=== PATIENT | male | born 1955 | race Caucasian/White ===

== ENCOUNTER 2018-09-17 01:54 | Emergency (ER) | payer MEDICARE, MEDICAID, SELFPAY ==
--- NOTE | 2018-09-17 01:57 | W.ED.GENAD ---
Discharge Plan Disposition Patient Disposition: AGAINST MEDICAL ADVICE Condition: Stable Discharge Details Chief Complaint: Nk/Back Pain Clinical Impression: Back pain Primary Care Provider: None,None ED Provider: Caesar Otoole Home Meds and New Rx's Prescriptions: No Action lorazepam [Ativan] 1 mg Tablet 1 mg PO TID RF: 0 ibuprofen 600 mg Tablet 600 mg PO DAILY RF: 0 Medical Decision Making 63 yo male who states he has a hx of anxiety and lower back pain in the past comes in with 1 hour of lower back pain. He states he twisted his back reaching and then fell to the ground. Denies hitting his head or loc. Has no headache, neck pain, sob, chest pain or abdominal pain. He localizes the pain to the lower back. Denies having pain yesterday and denies fevers and denies ivdu. He localizes the pain throughout the lumbar region. Has no abdominal tenderness. NO saddle anesthesia and no weakness of the legs. Given no ivdu or fevers or neuro symptoms doubt sea and no findings or urinary retention to suggest cauda equina. Will obtain renal colic ct given acute onset of symptoms though suspect muscle spasm vs back strain The patient was given oral ibuprofen and flexeril and almost immediately requested something stronger so was given IM valium. He then about 2 minutes later requested something stronger. Pt was advised that the other meds haven't had time to take effect and he became very angry and refused to have any imaging done and if that he didn't get any pain meds he was going to leave. I advised I was not comfortable giving him more pain medications given the others hadn't had time to take effect. He then yelled and starting to swear explitives about not getting pain meds. He declined to have any imaging at this time and decided to leave the emergency department without any workup. He was told that we haven't had the opportunity to exclude life threatening pathology that could kill him or disable him and he still did not want to stay, and has capacity to make his own decisions. He refuse to sign ama form. He was told he could always return if he changes his mind. He refused to stay for any discharge paperwork Differential Diagnosis back strain, sciatica, muscle spasm HPI General Mode of arrival: wheelchair. Date/Time Provider Initiated Documentation: 09/17/18 01:57. Limitations to Documentation: no limitations. Information obtained by: patient. History of Present Illness 63 year old M presents to the emergency department with the chief complaint of lower back pain, described as severe, Quality is described as stabbing and aching, and is localized to the back. Patient reports no radiation. Patient started experiencing this hour(s) (1) and it has been constant. No relieving factors improve symptom(s), No exacerbating factors reported . Patient did receive the following treatments prior to arrival, none Related Data Home Medications Medication Instructions Recorded Confirmed ibuprofen 600 mg PO DAILY 09/17/18 09/17/18 lorazepam [Ativan] 1 mg PO TID 09/17/18 09/17/18 Allergies Allergy/AdvReac Type Severity Reaction Status Date / Time No Known Allergies Allergy Unverified 09/17/18 02:03 Review of Systems Review of Systems All systems reviewed & are unremarkable except as noted in HPI and below Constitutional Denies chills and Denies fever(s) Cardiovascular Denies chest pain and Denies dyspnea Respiratory Denies cough and Denies dyspnea Gastrointestinal Denies abdominal pain, Denies nausea and Denies vomiting Integumentary/Breasts Denies rash [facility] Social History Smoking/Tobacco Use Status: Current every day Tobacco Type: cigarettes Alcohol Intake: former Drug use: Never Substance use type: does not use Do you feel safe at home: Yes Do you feel safe in your relationship?: Yes Exam Const General: no acute distress Orientation: alert HENMT Head: normal to inspection Ears: external ears normal General nose exam: external nose normal Mouth: moist mucous membranes Eyes General: appearance normal, both eyes and all related structures Neck Neck: normal visual inspection Resp Effort & Inspection: normal respiratory effort and able to speak in complete sentences Cardio Rate: regular rate Back/Spine/Pelvis Back: no CVA tenderness Skin General skin exam: no rashes or lesions noted Neuro General: alert and oriented x3 Extrem General: normal to inspection Psych Mental Status: mental status grossly normal
[2018-09-17 02:00] VITALS: BP 139/88; PULSE 115; RESP 20; TEMP 37; O2SAT 100
[2018-09-17] MEDS: Cyclobenzaprine 10 MG TAB PO (02:10)
[2018-09-17] MEDS: Ibuprofen 600 MG TAB PO (02:10)
--- NOTE | 2018-09-17 02:13 | ED.GENADUL_ITS ---
Discharge Plan Disposition Patient Disposition: AGAINST MEDICAL ADVICE Condition: Stable Discharge Details Chief Complaint: Nk/Back Pain Clinical Impression: Back pain Primary Care Provider: None,None ED Provider: Caesar Otoole Home Meds and New Rx's Prescriptions: No Action lorazepam [Ativan] 1 mg Tablet 1 mg PO TID RF: 0 ibuprofen 600 mg Tablet 600 mg PO DAILY RF: 0 Medical Decision Making 63 yo male who states he has a hx of anxiety and lower back pain in the past comes in with 1 hour of lower back pain. He states he twisted his back reaching and then fell to the ground. Denies hitting his head or loc. Has no headache, neck pain, sob, chest pain or abdominal pain. He localizes the pain to the lower back. Denies having pain yesterday and denies fevers and denies ivdu. He localizes the pain throughout the lumbar region. Has no abdominal tenderness. NO saddle anesthesia and no weakness of the legs. Given no ivdu or fevers or neuro symptoms doubt sea and no findings or urinary retention to suggest cauda equina. Will obtain renal colic ct given acute onset of symptoms though suspect muscle spasm vs back strain The patient was given oral ibuprofen and flexeril and almost immediately requested something stronger so was given IM valium. He then about 2 minutes later requested something stronger. Pt was advised that the other meds haven't had time to take effect and he became very angry and refused to have any imaging done and if that he didn't get any pain meds he was going to leave. I advised I was not comfortable giving him more pain medications given the others hadn't had time to take effect. He then yelled and starting to swear explitives about not getting pain meds. He declined to have any imaging at this time and decided to leave the emergency department without any workup. He was told that we haven't had the opportunity to exclude life threatening pathology that could kill him or disable him and he still did not want to stay, and has capacity to make his own decisions. He refuse to sign ama form. He was told he could always return if he changes his mind. He refused to stay for any discharge paperwork Differential Diagnosis back strain, sciatica, muscle spasm HPI General Mode of arrival: wheelchair . Date/Time Provider Initiated Documentation: 09/17/18 01:57 . Limitations to Documentation: no limitations . Information obtained by: patient . History of Present Illness 63 year old M presents to the emergency department with the chief complaint of lower back pain, described as severe, Quality is described as stabbing and aching, and is localized to the back. Patient reports no radiation. Patient started experiencing this hour(s) (1) and it has been constant. No relieving factors improve symptom(s), No exacerbating factors reported . Patient did receive the following treatments prior to arrival, none Related Data Home Medications Medication Instructions Recorded Confirmed ibuprofen 600 mg PO DAILY 09/17/18 09/17/18 lorazepam [Ativan] 1 mg PO TID 09/17/18 09/17/18 Allergies Allergy/AdvReac Type Severity Reaction Status Date / Time No Known Allergies Allergy Unverified 09/17/18 02:03 Review of Systems Review of Systems All systems reviewed & are unremarkable except as noted in HPI and below Constitutional Denies chills and Denies fever(s) Cardiovascular Denies chest pain and Denies dyspnea Respiratory Denies cough and Denies dyspnea Gastrointestinal Denies abdominal pain, Denies nausea and Denies vomiting Integumentary/Breasts Denies rash [facility] Social History Smoking/Tobacco Use Status: Current every day Tobacco Type: cigarettes Alcohol Intake: former Drug use: Never Substance use type: does not use Do you feel safe at home: Yes Do you feel safe in your relationship?: Yes Exam Const General: no acute distress Orientation: alert HENMT Head: normal to inspection Ears: external ears normal General nose exam: external nose normal Mouth: moist mucous membranes Eyes General: appearance normal, both eyes and all related structures Neck Neck: normal visual inspection Resp Effort & Inspection: normal respiratory effort and able to speak in complete sentences Cardio Rate: regular rate Back/Spine/Pelvis Back: no CVA tenderness Skin General skin exam: no rashes or lesions noted Neuro General: alert and oriented x3 Extrem General: normal to inspection Psych Mental Status: mental status grossly normal
[2018-09-17] MEDS: diazePAM 10 MG/2 ML SYR 5 MG IM (02:21)
--- NOTE | 2018-09-17 02:27 | NUR.NOTE ---
patient medicated per MD order, shortly after patient was medicated patient stated, want something to stop the pain or I am leaving MD made aware, POC : no additional pain medication. patient received motrin 600mg, 10 mg flexeril and 5 mg valium IM, prior to arrival patient stated, took 2 Tylenol. Patient began yelling at the nurse stating , you think this is some kind of joke RN attempted to re-direct patient to CT for rad studies and patient stated, I am going to [facility] patient was able to get into wheel-chair and refused to sign AMA form stating, I am not signing that fucking form patient left with via wheel-chair. MD was made aware of situation. ursing Note:
== END 2018-09-17 02:35 | disposition left against medical advice (07) ==
PROVIDERS: Emergency Provider Emergency Medicine
DX: M54.5 Low back pain (principal)
CPT/HCPCS: 96372; 99284

== ENCOUNTER 2018-09-18 03:32 | Emergency (ER) | payer MEDICARE, MEDICAID, SELFPAY ==
[2018-09-18 03:33] VITALS: BP 174/97; PULSE 117; RESP 24; TEMP 36.5; O2SAT 97
--- NOTE | 2018-09-18 03:38 | W.ED.GENAD ---
Discharge Plan Disposition Patient Disposition: HOME Condition: Stable Discharge Details Chief Complaint: Nk/Back Pain Clinical Impression: Chronic back pain, Hyperthyroidism Primary Care Provider: None,None ED Provider: Sajan Odom Home Meds and New Rx's Prescriptions: Continued lorazepam [Ativan] 1 mg Tablet 1 mg PO TID RF: 0 ibuprofen 600 mg Tablet 600 mg PO DAILY RF: 0 methadone 10 mg Tablet 20 mg PO DAILY RF: 0 Discharge Instructions Additional Instructions: You were reevaluated by Dr. Pak of psychiatry. Please return at any time should your mood change or you feel you are a danger to yourself or have thoughts of harming others. You need to follow-up with the [facility] in [place] this week for recheck, we will ask our care management team to assist in making you this appointment. They will need to recheck your thyroid function. Continue your regular medications. Medical Decision Making <Christiano Skelton MD - Last Filed: 09/18/18 20:05> Through all of this best I can ascertain is that he seems to have an acute exacerbation of chronic pain as well as severe agitation and psychiatric disturbance. He repeatedly request Valium and Percocet. He repeatedly requested safety instruction police officer to be present. He repeatedly requests that we contact his girlfriend as well as his workers at [facility]. I do feel he needs a mental health evaluation and I have told him this. He is actually agreeable to this. I have told him that I will give him IM Valium but that I will not give him any narcotics. I offered Toradol which he declined. He has agreed to allow me to draw labs and obtain a CT scan. I have had a CPSO assigned to the patient. We have not attempted to remove his clothes or belonging as of yet due to the agitation. He willing submitted to lab draw and IM Valium. Mental health has been contacted. We will try to get records from the [facility]. We will contact [facility] when they open. 06:00 -patient does seem a little more lucid after 10 mg of IM Valium. He still has not stopped talking and is still continuing to ramble on and off. Records were obtained from the [facility]. 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 He has chronic back and neck pain. He has a prior history of opiate abuse. He has been in remission for some time. He also has hepatitis C. I was able to speak to nurse DOUGIE who states he is a client there. He is on methadone 20 mg a day. He is typically very even keeled and well behaved. I was also able to speak to his girlfriend, Grisel. She reports that he has not slept in a couple of days. He is completely changed in behavior. He is nonstop talking and at times makes no sense to her. She describes him as manic. He has no history of bipolar. He has been perseverating on dying and cancer. In regards to laboratory studies he does have evidence of some hyperthyroidism. His TSH is low and his T4 a little high. I have added free T4 and free T3. I do not necessarily think this is causing his behavioral change. He does have eye complaints and seems to have some injected conjunctiva but he does not have chemosis nor does he have exophthalmos. Extraocular muscles are intact. Pupils equal round and reactive. At this time urine drug screen and urinalysis are pending as his results of his CT scan. 8:00 -patient has been seen by mental health. They are in agreement that patient appears manic. He is going to need EE and I have done the paperwork. As this is new onset in nature I am going to get a CT head to rule out any mass but he appears to be nonfocal neurologically and I do not think that his cause. He is presenting more as a manic episode as opposed to psychosis. We have convinced him to change into paper clothes. Care management notified and care plan will be determined. Mental health will continue working on placement. Medical Records Medical records reviewed: Yes I reviewed the patient's medical records. Lab Data Lab results reviewed: Yes I reviewed the patient's lab results. <Sajan Odom MD - Last Filed: 09/18/18 19:16> Received signout from Dr. Skelton. Please see his note regarding the patient's initial presentation, 3-day history of increasingly psychotic/manic symptoms as well as medical workup and decision for EE. Note of discrete hyper thyroidism which is unlikely be causing this presentation. CT scan of the head negative for acute findings. Patient beginning to de-escalate with Valium. Will add antipsychotic. Care management team huddle was performed and patient has a one-to-one observer. Patient's girlfriend brought his home methadone dose is in packaging and he was given his daily dose. Continues to be observed in the emergency department. He was able to sleep, and upon awakening he was somewhat improved with more linear thoughts and no further agitation. He was reevaluated by Dr. Kelley of psychiatry and felt not to meet the threshold for involuntary treatment, therefore his emergency evaluation was terminated. He is eating and drinking and able to care for himself. He is not a danger to himself or others he therefore will be discharged from the emergency department improved. He will follow-up with the [facility] as is his request. Lab Data Lab results reviewed: Yes I reviewed the patient's lab results. Laboratory Results - last 24 hr 09/18/18 09/18/18 09/18/18 04:45 04:45 04:45 WBC 12.36 H RBC 4.43 L Hgb 13.7 Hct 40.3 MCV 91.0 MCH 30.9 MCHC 34.0 RDW 13.3 Plt Count 237 MPV 10.0 Immature Gran % 0.0 Neutrophils % 79.0 Band Neutrophils % 0.0 Lymphocytes % 5.0 Atypical Lymphs % 0 Monocytes % 16.0 Eosinophils % 0.0 Basophils % 0.0 Absolute Neutrophils 9.76 H Absolute Lymphocytes 0.62 L Absolute Monocytes 1.98 H Absolute Eosinophils 0.00 Absolute Basophils 0.00 Differential Comment Manual differential RBC Morphology Normal Sodium 142 Potassium 4.0 Chloride 103 Carbon Dioxide 23.7 Anion Gap 15.3 H BUN 30 H Creatinine 1.01 Estimated GFR/1.73 m2 >= 60.00 Glucose 160 H Calcium 8.9 Total Bilirubin 1.1 H AST 281 H ALT 87 H Alkaline Phosphatase 85 Total Protein 7.8 Albumin 4.5 TSH 0.22 L Free T4 Thyroxine (T4) Urine Color Urine Clarity Urine pH Ur Specific Harrison Urine Protein Urine Ketones Urine Blood Urine Nitrite Urine Bilirubin Urine Urobilinogen Ur Leukocyte Esterase Urine RBC Urine WBC Ur Epithelial Cells Urine Crystals Urine Bacteria Urine Casts Urine Mucus Ur Culture Indicated? Urine Glucose Salicylates < 2.8 L Urine Opiates Screen Urine Methadone Screen Acetaminophen < 2 L Ur Barbiturates Screen Ur Tricyclics Screen Ur Amphetamines Screen U Benzodiazepines Scrn Urine Cocaine Screen Ur THC Screen Ethyl Alcohol < 3.0 09/18/18 09/18/18 09/18/18 04:45 04:45 08:28 WBC RBC Hgb Hct MCV MCH MCHC RDW Plt Count MPV Immature Gran % Neutrophils % Band Neutrophils % Lymphocytes % Atypical Lymphs % Monocytes % Eosinophils % Basophils % Absolute Neutrophils Absolute Lymphocytes Absolute Monocytes Absolute Eosinophils Absolute Basophils Differential Comment RBC Morphology Sodium Potassium Chloride Carbon Dioxide Anion Gap BUN Creatinine Estimated GFR/1.73 m2 Glucose Calcium Total Bilirubin AST ALT Alkaline Phosphatase Total Protein Albumin TSH Free T4 1.61 H Thyroxine (T4) 16.8 H Urine Color Brown Urine Clarity Clear Urine pH 5.5 Ur Specific Harrison >= 1.030 H Urine Protein 100 H Urine Ketones 40 H Urine Blood Large H Urine Nitrite Negative Urine Bilirubin Small H Urine Urobilinogen 0.2 Ur Leukocyte Esterase Negative Urine RBC 3-5 H Urine WBC 5-10 Ur Epithelial Cells Rare Urine Crystals Negative Urine Bacteria Few Urine Casts 20-30 wbc Urine Mucus Moderate Ur Culture Indicated? Yes Urine Glucose Negative Salicylates Urine Opiates Screen Urine Methadone Screen Acetaminophen Ur Barbiturates Screen Ur Tricyclics Screen Ur Amphetamines Screen U Benzodiazepines Scrn Urine Cocaine Screen Ur THC Screen Ethyl Alcohol 09/18/18 08:28 WBC RBC Hgb Hct MCV MCH MCHC RDW Plt Count MPV Immature Gran % Neutrophils % Band Neutrophils % Lymphocytes % Atypical Lymphs % Monocytes % Eosinophils % Basophils % Absolute Neutrophils Absolute Lymphocytes Absolute Monocytes Absolute Eosinophils Absolute Basophils Differential Comment RBC Morphology Sodium Potassium Chloride Carbon Dioxide Anion Gap BUN Creatinine Estimated GFR/1.73 m2 Glucose Calcium Total Bilirubin AST ALT Alkaline Phosphatase Total Protein Albumin TSH Free T4 Thyroxine (T4) Urine Color Urine Clarity Urine pH Ur Specific Harrison Urine Protein Urine Ketones Urine Blood Urine Nitrite Urine Bilirubin Urine Urobilinogen Ur Leukocyte Esterase Urine RBC Urine WBC Ur Epithelial Cells Urine Crystals Urine Bacteria Urine Casts Urine Mucus Ur Culture Indicated? Urine Glucose Salicylates Urine Opiates Screen Positive Urine Methadone Screen Positive Acetaminophen Ur Barbiturates Screen Negative Ur Tricyclics Screen Negative Ur Amphetamines Screen Negative U Benzodiazepines Scrn Positive Urine Cocaine Screen Negative Ur THC Screen Positive Ethyl Alcohol HPI <Christiano Skelton MD - Last Filed: 09/18/18 20:05> General Mode of arrival: EMS. Date/Time Provider Initiated Documentation: 09/18/18 03:36. Limitations to Documentation: no limitations. Information obtained by: patient and old records reviewed. HPI Narrative: Patient presents to ED by ambulance with complaint of back pain. He arrives angry and agitated. He is rambling on about various things including the back pain which as best I can tell is an exacerbation of chronic pain. However, due to his degree of agitation this makes this very difficult to get a history from him. He does admit to having a history of PTSD. He is a of [place]. He periodically states that he is dying. He also states that he has cancer but cannot tell me where. States he does not have primary care than [facility] Also is apparently a [facility] client. On numerous occasion he requests that a safety instruction police officer be present. He also reports that he is best friends with Ashley Shaw. Constantly makes threats of lawsuits. He is apparently very angry with the fact that he was accused of drug-seeking last night. He was here last night for back pain and left AMA. I have reviewed that note. He was given ibuprofen, Flexeril, Valium but wanted Percocet which he was not given. He did not have CT scan which had been ordered. He left AMA. Related Data Home Medications Medication Instructions Recorded Confirmed ibuprofen 600 mg PO DAILY 09/17/18 09/18/18 lorazepam [Ativan] 1 mg PO TID 09/17/18 09/18/18 methadone 20 mg PO DAILY 09/18/18 09/18/18 Allergies Allergy/AdvReac Type Severity Reaction Status Date / Time No Known Allergies Allergy Unverified 09/18/18 03:40 General MONISHA: 4 Review of Systems <Christiano Skelton MD - Last Filed: 09/18/18 20:05> Review of Systems Unobtainable due to mental condition [facility] <Christiano Skelton MD - Last Filed: 09/18/18 20:05> Medical History Back fracture (Chronic) Back pain (Chronic) Hepatitis C (Chronic) PTSD (post-traumatic stress disorder) (Chronic) Social History Smoking/Tobacco Use Status: Current every day Tobacco Type: cigarettes Alcohol Intake: former Drug use: Never Substance use type: does not use Do you feel safe at home: Yes Do you feel safe in your relationship?: Yes Exam <Christiano Skelton MD - Last Filed: 09/18/18 20:05> Narrative Exam Narrative: 1. Const: WDWN male who is agitated, loud, swearing. 2. Eyes: No conjunctival injection or scleral icterus. 3. ENT: NC/AT. Mucous membranes moist. 4. CVS: RRR without murmurs or gallops. Good radial pulses. 5. RESP: Unlabored respiratory effort. Clear to auscultation bilaterally. No wheezes, rales or rhonchi. 6. GI: Soft, NT/ND, no hepatosplenomegaly. No guarding or rebound. 7. MSK: No C/C/E present. No deformity or tenderness noted in the extremities. Able to roll over in bed easily. No spine or back tenderness. Ambulates with limp. 8. Skin: Warm and dry. No rashes. 9. Neuro: A&O x3. second floor operator II-XII grossly intact. Sensation grossly intact, no focal neurologic deficits appears to have 5/5 strength. 10. Psych: Agitated and loud. Angry. Rambling in speech with apparent flight of ideas. Cannot stay focused on one subject. At times seems delusional but am not able to tell what is real versus not real as I have never seen this patient before. He is definitely very pressured. Sign Out <Christiano Skelton MD - Last Filed: 09/18/18 20:05> Sign Out Data: Sign Out Comment: Patient has been placed on ED for manic episode. CT head pending. Does have evidence of mild hyperthyroidism but doubt this is because of his manic episode. Patient has CPSO assigned. He is signed out to Dr. Odom oncoming physician for the day. Last updated by Christiano Skelton MD at 09/18/18 07:57
[2018-09-18] MEDS: diazePAM 10 MG/2 ML SYR IM (04:38)
[2018-09-18 04:52] LABS: Abs Immature Grans 0.03 k/cumm (0.0-0.09); HCT 40.3 % (40.0-50.0); HGB 13.7 g/dL (13.5-17.5); Mean Corpuscular Hemoglobin 30.9 pg (27.0-33.0); Platelet Count 237 x1000/uL (130-400); RBC 4.43 m/cumm (4.50-6.00); RBC Distribution Width 13.3 % (11.8-14.1); White Blood Cell Count 12.36 k/cumm (4.4-10.8)
[2018-09-18 05:09] LABS: Salicylate < 2.8 mg/dL (2.8-20.0)
[2018-09-18 05:12] LABS: Absolute Lymphocyte Count 0.62 k/cumm (1.2-3.4); Absolute Monocyte Count 1.98 k/cumm (0.11-0.7); Absolute Neutrophil Count 9.76 k/cumm (1.2-6.7); Atypical Lymphocytes % 0
[2018-09-18 05:14] LABS: ALT 87 U/L (12-78); AST 281 U/L (15-37); Albumin 4.5 g/dL (3.4-5.0); Alkaline Phosphatase 85 U/L (46-116); Anion Gap 15.3 mmol/L (3-11); BUN 30 mg/dL (7-18); Bilirubin, Total 1.1 mg/dL (0.2-1.0); CO2 23.7 mmol/L (21.0-32.0); CREATININE 1.01 mg/dL (0.70-1.30); Calcium 8.9 mg/dL (8.5-10.1); Chloride 103 mmol/L (98-107); Diff Comment Manual Differential; Glucose 160 mg/dL (70-100); RBC Morphology Normal; Sodium 142 mmol/L (136-145); TSH 0.22 uIU/mL (0.358-3.74); Total Protein 7.8 g/dL (6.4-8.2)
[2018-09-18 05:15] LABS: ETHANOL BLOOD < 3.0 mg/dL (<3)
[2018-09-18 05:30] LABS: Acetaminophen < 2 ug/mL (10-30)
--- NOTE | 2018-09-18 05:34 | DI.CT_ITS ---
SYMPTOM/DIAGNOSIS: BACK PAIN, NEW ONSET BEHAVIOR CHANGES ABDOMEN AND PELVIC CT: CT scan of the abdomen and pelvis was performed without intravenous or oral contrast material. Comparison is made with 03/13/08. The lung bases show no acute abnormality. The liver shows diffuse decreased attenuation consistent with fatty infiltration. The gallbladder is distended. There does appear to be debris within the gallbladder which may represent stones or sludge. No biliary ductal dilatation is appreciated. There are calcifications seen of the pancreatic head which may represent chronic pancreatitis. Pancreas is otherwise unremarkable. The spleen and adrenal glands are unremarkable. There is a right parapelvic cyst. The kidneys show no evidence of nephrolithiasis or obstructive uropathy. The urinary bladder is intact. The reproductive organs are unremarkable. There is atherosclerosis of the abdominal aorta but no aneurysmal dilatation. No significant abdominal or pelvic adenopathy, ascites or pneumoperitoneum is seen. There is diverticulosis seen in the sigmoid colon but no evidence of acute diverticulitis. The remainder of the bowel shows no evidence of obstruction or inflammation. There is a normal appendix present. At L 5-S 1, there is disc desiccation. There is unilateral left spondylolysis at L 5. No significant central spinal stenosis stenosis is seen. There is moderately severe bilateral neural foraminal stenosis present. At L 4-5, there is a vacuum disc. There is mild narrowing of the central spinal canal and moderately severe bilateral neural foraminal stenosis. At L 3-4, there is a diffuse disc bulge. There are hypertrophic changes of the facets and ligament flavum. These all contribute to cause severe central spinal canal stenosis. Moderately severe neural foraminal stenosis is seen bilaterally. At L 2-3, there is a vacuum disc. There is mild to moderate central spinal canal stenosis due to the degenerative changes. Bilateral neural foraminal stenosis is present. IMPRESSION: 1. No evidence of an acute abdomen. 2. Hepatic steatosis. 3. Calcifications in the pancreatic head likely reflecting chronic pancreatitis. 4. Multi level degenerative changes in the lumbar spine resulting in central spinal canal and neural foraminal stenosis as described. NONCONTRAST HEAD CT: No priors. There is mild age appropriate cerebral atrophy. There are areas of decreased attenuation in the white matter likely reflecting small vessel ischemic disease. No evidence of an acute infarct, hemorrhage, midline shift or mass effect is identified. The ventricles are intact. The basilar cisterns are patent. The visualized paranasal sinuses show no fluid levels. The mastoid air cells are well pneumatized. The calvarium is intact. IMPRESSION: No acute intracranial process.
[2018-09-18 05:42] LABS: T4 16.8 ug/dL (4.5-12.5)
--- NOTE | 2018-09-18 06:32 | DI.VRAD_ITS ---
EXAM: CT Abdomen and Pelvis Without Contrast EXAM DATE/TIME: 09/18/2018 4:25 AM CLINICAL HISTORY: 63 years old, male; Pain; Abdominal pain; Other: Back pain TECHNIQUE: Imaging protocol: Axial computed tomography images of the abdomen and pelvis without contrast. Coronal and sagittal reformatted images were created and reviewed. Radiation optimization: All CT scans at this facility use at least one of these dose optimization techniques: automated exposure control; mA and/or kV adjustment per patient size (includes targeted exams where dose is matched to clinical indication); or iterative reconstruction. COMPARISON: No relevant prior studies available. FINDINGS: Lower thorax: Unremarkable. ABDOMEN: Liver: Liver is diffusely low-attenuation. Gallbladder and bile ducts: Gallbladder is distended the time of imaging but does not look inflamed. Pancreas: Pancreatic head has multiple punctate calcifications. Spleen: No suspicious lesions. Adrenals: Unremarkable. No suspicious nodule. Kidneys and ureters: Right renal peripelvic cyst. Stomach and bowel: Scattered few colonic diverticuli. Appendix: Normal appendix. PELVIS: Bladder: Unremarkable as visualized. Reproductive: Unremarkable as visualized. ABDOMEN and PELVIS: Intraperitoneal space: No free air. No significant fluid collection. Bones/joints: No acute fracture. No dislocation. Soft tissues: Unremarkable. Vasculature: Unremarkable. Lymph nodes: Unremarkable. IMPRESSION: Fatty liver. Pancreatic head has multiple punctate calcifications likely an indication of chronic pancreatitis. Dictated and Authenticated by: Manny Mcgee MD. Ordering:MORENO Alvarado MD
[2018-09-18 06:45] LABS: FREE T4 1.61 ng/dL (0.76-1.46)
--- NOTE | 2018-09-18 07:54 | PDOC.ERCMPRO ---
Care Management Progress Note INVOLUNTARY FOR INPATIENT PSYCHIATRIC STABILIZATION Russell presents to [facility] ED after three days of increased behavioral disturbance, lack of sleep, manic behavior and chronic back pain. Russell thus far has been unable to communicate appropriately though positive changes are noted in the chart such become a bit more lucid, agreeing to lab draws, CT scan and MH evaluation. Per MH and MD, Russell is presenting with what appears to be some form of genny though he does not have prior history of any episodic genny. 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 Per and ROSANGELA, Russell has been unable to exhibit capacity due to flight of ideas, and grandiose statements, such so that in addition to not being agreeable to voluntary hospitalization the decision was made to pursue involuntary hold for placement. Please see ROSANGELA and MD notes for further information. Per , reports from significant other, Grisel offered information that Russell was placed in [facility] facility for a month at some point; records will be requested. Safety plan has been established with patient, and care team, to adhere to patient goals, identify restrictions based on behavioral status, address nutrition, and determine allowed personal belongings, tools for hygiene and personal care. Determine level of activity including ambulation, level of supervision, visitors, and determine privileges based on behaviors and level of engagement by patient; please note safety plan below. PER : patient does seem a little more lucid after 10 mg of IM Valium. He still has not stopped talking and is still continuing to ramble on and off. Records were obtained from the [place]. 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 He has chronic back and neck pain. He has a prior history of opiate abuse. He has been in remission for some time. He also has hepatitis C. I was able to speak to nurse DOUGIE who states he is a client there. He is on methadone 20 mg a day. He is typically very even keeled and well behaved. I was also able to speak to his girlfriend, Grisel. She reports that he has not slept in a couple of days. He is completely changed in behavior. He is nonstop talking and at times makes no sense to her. She describes him as manic. He has no history of bipolar. He has been perseverating on dying and cancer. SAFETY PLAN: 1. Will remain on suicide precautions. In Paper Clothes 2. Will remain in room under direct supervision of one-on-one staff at all times provided by [employer]; [employer], DOG GROOMER livestock nutrition territory manager. 3. May have paper cups, plates, finger foods. 4. Follow [facility] Management of the Admitted Behavioral Health Patient policy. 5. Comfort bath system only. 6. No personal belongings. 7. Visitors limited to his significant other, Grisel. 9. Bathroom privileges: escort to bathroom at RN discretion. 10. Phone contact at RN discretion with facilitation of contact. Patient is currently involuntarily being held at [facility] and will have second certification with [facility] via tele-health within twenty four hours. [facility] Frontline Green Chain Marker will continue seeking placement for inpatient psychiatric admission. Please contact the Agriculture Engineer Finance Intern ([phone]) and [facility] Green Chain Marker ([phone]) for any needed changes in the Safety Plan. Safety plan has been provided to interdepartmental care team.
--- NOTE | 2018-09-18 08:28 | DI.VRAD_ITS ---
EXAM: CT Head Without Contrast EXAM DATE/TIME: 09/18/2018 7:50 AM CLINICAL HISTORY: 63 years old, male; Signs and symptoms; Other: Behavior changes new onset TECHNIQUE: Imaging protocol: Axial computed tomography images of the head/brain without contrast. Coronal and sagittal reformatted images were created and reviewed. Radiation optimization: All CT scans at this facility use at least one of these dose optimization techniques: automated exposure control; mA and/or kV adjustment per patient size (includes targeted exams where dose is matched to clinical indication); or iterative reconstruction. COMPARISON: No relevant prior studies available. FINDINGS: Brain: No acute intracranial hemorrhage. There is mild diffuse heterogeneity of the white matter attenuation, consistent with chronic white matter ischemic changes. Mild cerebral atrophy. Ventricles: Normal. No ventriculomegaly. Bones/joints: Unremarkable. No acute fracture. Sinuses: Visualized sinuses are unremarkable. No acute sinusitis. Mastoid air cells: Visualized mastoid air cells are unremarkable. No mastoid effusion. Soft tissues: Unremarkable. IMPRESSION: No acute intracranial hemorrhage. Dictated and Authenticated by: Kenny Johansen MD. Ordering:MORENO Alvarado MD
[2018-09-18 08:38] LABS: Bilirubin Small (Negative); Blood Large (Negative); Clarity Clear; Glucose Negative (Negative); Ketones 40 mg/dL (Negative); Leukocyte Esterase Negative (Negative); Nitrite Negative (Negative); Specific Gravity >= 1.030 (1.005-1.025); Urobilinogen 0.2 EU/dL (Up TO 0.2); pH 5.5 (5-8)
[2018-09-18] MEDS: OLANZapine 5 MG TAB PO (08:40)
[2018-09-18] MEDS: diazePAM 5 MG TAB PO ×2 (08:40→12:21)
[2018-09-18 08:48] LABS: *AMPHETAMINES SCREEN URINE Negative (Negative); *BARBITURATES SCREEN URINE Negative (Negative); *BENZODIAZEPINES SCREEN URINE POSITIVE (Negative); Cannabinoids THC POSITIVE (Negative); Cocaine Screen,Urine Negative (Negative); METHADONE URINE SCREEN POSITIVE (Negative); OPIATES URINE SCREEN POSITIVE (Negative)
[2018-09-18 08:49] LABS: Bacteria Few HPF (Negative); Crystals Negative HPF (Negative); Epithelial Cells Rare HPF (Negative); Mucus Moderate (Negative); Tricyclic Antidepressants Negative (Negative)
[2018-09-18 08:50] LABS: C & S Indicated? Yes
--- NOTE | 2018-09-18 09:26 | CMPROGNOTE_ITS ---
Care Management Progress Note INVOLUNTARY FOR INPATIENT PSYCHIATRIC STABILIZATION Russell presents to [facility] ED after three days of increased behavioral disturbance, lack of sleep, manic behavior and chronic back pain. Russell thus far has been unable to communicate appropriately though positive changes are noted in the chart such become a bit more lucid, agreeing to lab draws, CT scan and MH evaluation. Per MH and MD, Russell is presenting with what appears to be some form of genny though he does not have prior history of any episodic genny. 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 Per and ROSANGELA, Russell has been unable to exhibit capacity due to flight of ideas, and grandiose statements, such so that in addition to not being agreeable to voluntary hospitalization the decision was made to pursue involuntary hold for placement. Please see MH and MD notes for further information. Per , reports from significant other, Grisel offered information that Russell was placed in [facility] facility for a month at some point; records will be requested. Safety plan has been established with patient, and care team, to adhere to patient goals, identify restrictions based on behavioral status, address nutrition, and determine allowed personal belongings, tools for hygiene and personal care. Determine level of activity including ambulation, level of supervision, visitors, and determine privileges based on behaviors and level of engagement by patient; please note safety plan below. PER : patient does seem a little more lucid after 10 mg of IM Valium. He still has not stopped talking and is still continuing to ramble on and off. Records were obtained from the [place]. 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 He has chronic back and n britany pain. He has a prior history of opiate abuse. He has been in remission for some time. He also has hepatitis C. I was able to speak to nurse DOUGIE who states he is a client there. He is on methadone 20 mg a day. He is typically very even keeled and well behaved. I was also able to speak to his girlfriend, Grisel. She reports that he has not slept in a couple of days. He is completely changed in behavior. He is nonstop talking and at times makes no sense to her. She describes him as manic. He has no history of bipolar. He has been perseverating on dying and cancer. SAFETY PLAN: 1. Will remain on suicide precautions. In Paper Clothes 2. Will remain in room under direct supervision of one-on-one staff at all times provided by [employer]; [employer], SALES FINANCIAL ANALYST well testing operator. 3. May have paper cups, plates, finger foods. 4. Follow [facility] Management of the Admitted Behavioral Health Patient policy. 5. Comfort bath system only. 6. No personal belongings. 7. Visitors limited to his significant other, Grisel. 9. Bathroom privileges: escort to bathroom at RN discretion. 10. Phone contact at RN discretion with facilitation of contact. Patient is currently involuntarily being held at [facility] and will have second certification with [facility] Psychiatrist via tele-health within twenty four hours. [facility] Frontline Inventory Analyst will continue seeking placement for inpatient psychiatric admission. Please contact the Yarding Engineer Line Fixer ([phone]) and [facility] Inventory Analyst ([phone]) for any needed changes in the Safety Plan. Safety plan has been provided to interdepartmental care team.
[2018-09-18 10:00] VITALS: BP 143/84; PULSE 100; RESP 16; TEMP 36.5; O2SAT 98
[2018-09-18] MEDS: Ondansetron O.D.T. 4 MG TABEF PO (10:15)
--- NOTE | 2018-09-18 11:52 | PDOC.MHCN ---
Date of service: 09/18/18 Time of Service: 11:53 Mental Health Crisis Note Presenting Issue How did you arrive at the ED and why did you come: Russell arrived to the ED via ambulance after reports of back pain. A MH consult was requested due to decompensation of his thoughts. Precipitating Factors Rosy denied SI and HI. He has been experiencing some delusions over the last 24 hours. Disposition BEHAVIOR: Russell is respectful and engaged but is experiencing flight of ideas and some anxiety. He is pacing and talking non-stop and is unable to rest. EYE CONTACT: Eye contact is good however, it is clear that he is exhausted as evidenced by blood shot eyes, dark circles around his eyes and at times struggles ti keep his eyes open and going cross eyed. MOOD: Anxious and wanting to go home to my girl and dog. AFFECT: Flat and scared when he is thinking he has some sort of ailment in his head. APPETITE: Good SLEEP(trouble falling/staying asleep: Poor none in 3 days. Plan Rosy was placed on EE status. He will remain at [facility] until a psychiatric bed becomes available. [facility] Dr [facility] - will not consider even if he is voluntary. Do not accept EE's on the weekends. [facility]: May - Full [facility]: Never called back [facility]: Ysabel - Too accute try again tomorrow [facility]: Mahesh - None [facility] [place]: Caesar - None for the weekend [facility]: [facility] - None Signature Clinician's Name/Title: Denise Crawley MS Emergency Services Clinician
--- NOTE | 2018-09-18 13:24 | PDOC.MHCN_ITS ---
Date of service: 09/18/18 Time of Service: 11:53 Mental Health Crisis Note Presenting Issue How did you arrive at the ED and why did you come: Russell arrived to the ED via ambulance after reports of back pain. A MH consult was requested due to decompensation of his thoughts. Precipitating Factors Rosy denied SI and HI. He has been experiencing some delusions over the last 24 hours. Disposition BEHAVIOR: Russell is respectful and engaged but is experiencing flight of ideas and some anxiety. He is pacing and talking non-stop and is unable to rest. EYE CONTACT: Eye contact is good however, it is clear that he is exhausted as evidenced by blood shot eyes, dark circles around his eyes and at times struggles ti keep his eyes open and going cross eyed. MOOD: Anxious and wanting to go home to my girl and dog. AFFECT: Flat and scared when he is thinking he has some sort of ailment in his head. APPETITE: Good SLEEP(trouble falling/staying asleep: Poor none in 3 days. Plan Rosy was placed on EE status. He will remain at [facility] until a psychiatric bed becomes available. [facility]: Dr Rivas - will not consider even if he is voluntary. Do not accept EE's on the weekends. [facility]: May - Full [facility]: Never called back [facility]: Ys[facility] - Too accute try again tomorrow [facility]: [facility]hes[facility] - None [facility] [place]: [facility] - None for the weekend [facility]: [facility] - None Signature Clinician's Name/Title: Denise Crawley MS Emergency Services Clinician
--- NOTE | 2018-09-18 13:35 | NUR.NOTE ---
given methadone 20mg out of his personal locked case. girlfriend is here and reminded him that he did not take a dose at 0200 in the morning.Nursing Note:
--- NOTE | 2018-09-18 19:04 | PDOC.MHCN_ITS ---
Date of service: 09/18/18 Time of Service: 18:31 Mental Health Crisis Note Presenting Issue How did you arrive at the ED and why did you come: Rosy arrived to the ED early this morning after his SO called 911. Rosy's mental status has significantly decompensated in the past 3 days. This clinician came back due to a second cert which was filed earlier today. Dr. Kelley was the doctor in charge. Precipitating Factors M continues to deny SI and HI. He is having delusional thoughts. Disposition BEHAVIOR: manic and non stop talking to anyone who will listen. EYE CONTACT: Good MOOD: tearful and ecstatic, upbeat and happy that you saved my life. as he says to all of the staff at [facility]. He did have complaints of one male earlier this morning who was rude but it's okay I'm okay. AFFECT: elevated and euphoric. APPETITE: good SLEEP(trouble falling/staying asleep: Was able to sleep maybe an hour today. This is the first time he has slept in 3 days. Plan 2nd Cert happened with Dr. Kelley. Dr Kelley was not comfortable with doing the second cert and wanted to have a conversation with Rosy's SO and so was offered her number to call. Rosy in the mean time had called his SO and so Dr. Kelley was unable to get through. I reminded M that the was calling her and so he needed to end his call. He did so without incident. I then called [facility] and let them know what garcia happened and asked to have Dr. Kelley call her again. After this call it was decided that Rosy does not meet critria and so was walked off and despite efforts again to convince him to go he refused and said he wants to go home. Dr. Odom will d/c M today. Signature Clinician's Name/Title: Denise Crawley MS Emergency Services Clinician
[2018-09-18 19:19] VITALS: BP 132/3; PULSE 100; RESP 20; O2SAT 98
[2018-09-18 20:10] VITALS: BP 132/83; PULSE 100; RESP 20; O2SAT 98
[2018-09-19 16:58] LABS: T3,Free 3.5 pg/ml (2.8-5.3)
[2018-09-19 17:11] LABS: T3, Total 136 ng/dl (97-169)
--- NOTE | 2018-09-20 09:43 | PDOC.ERCMPRO ---
Care Management Progress Note 09/20-Russell was seen twice over the weekend for PTSD. Per Dr. Skelton's note, acute exacerbation of chronic pain as well as severe agitation and psychiatric disturbance [facility] Vaishali Marshall RN Case Manager requesting call back to see if there is some outpatient vs inpatient help for Russell. Currently waiting electrical and instrumentation manager back.
== END 2018-09-18 20:09 | disposition home or self-care (01) ==
PROVIDERS: Emergency Medicine; Emergency Provider Emergency Medicine
DX: M54.9 Dorsalgia, unspecified (principal); E05.90 Thyrotoxicosis, unspecified without thyrotoxic crisis or storm; F43.12 Post-traumatic stress disorder, chronic
CPT/HCPCS: 36415; 80053; 80307; 99284; 70450; 74176; 80320; 80329; 81003; 81015; 84436; 84439; 84443; 84480; 84481; 85025; 87086; J3360

== ENCOUNTER 2018-10-08 08:53 | Emergency (ER) | payer MEDICARE, MEDICAID, SELFPAY ==
[2018-10-08 08:56] VITALS: BP 133/90; PULSE 118; RESP 16; TEMP 36.9; O2SAT 97
--- NOTE | 2018-10-08 09:01 | W.ED.GENAD ---
Discharge Plan Disposition Patient Disposition: HOME Condition: Stable Discharge Details Chief Complaint: PsychEval Clinical Impression: Manic behavior Primary Care Provider: None,None ED Provider: Chasity Valles Home Meds and New Rx's Prescriptions: Continued methadone 5 mg/5 mL Solution 15 mg PO DAILY RF: 0 Discharge Instructions Instructions: Bipolar Disorder (ED) Additional Instructions: You will receive a call from [facility] for follow-up. Drink plenty of fluids and get plenty of rest. Return immediately to the emergency department with any worsening or new concerning symptoms. Discharge Data Discharge Date/Time-TO BE ENTERED AT DEPARTURE: 10/08/18 13:25 Discharge Physician: Chasity Valles Medical Decision Making 63-year-old male with a history of PTSD presents from home for concern for manic behavior. Patient has been repeating phrases regarding his dog this morning. Patient is redirectable and able to answer questions appropriately, but also making statements regarding his dog which are somewhat incomprehensible but some sense that he is concerned about where he is going to place his dog while on vacation. He denies suicidal homicidal ideation. He denies hallucinations, alcohol or drug use. He states he has been sleeping normally but has had poor appetite recently. He has had recent medical care regarding biopsies of his tongue for possible tongue cancer. HR tachycardic. Remainder of vitals within normal limits. Patient appears somewhat manic. At this point in time, will check screening labs and UA to rule out an organic cause. As there are no focal deficits, I do not see an indication for CT head at this time but will reassess. He has no complaints of chest pain, shortness of breath, with normal respirations and oxygen saturation so I do not see a cardiopulmonary cause as a primary etiology at this time. 1130 --labs reviewed. Potassium 3.2. 1220 --discussed with mental health who discussed with patient and girlfriend at bedside. Girlfriend feels that patient is much more relaxed and more at his baseline. She feels comfortable taking him home. Discussed with mental health Glenn -patient is redirectable and does not fit criteria for involuntary admission. Patient does not want to be admitted to the hospital and states he feels good to go home. There was discussion earlier regarding a possible tongue cancer which patient is seen Dr. Conn. This was discussed with Dr. Conn and he states he has not seen patient for the past 20 years. With further discussion with patient and girlfriend, she stated that the plan was for patient to follow-up with Dr. Conn in the future. She states the patient has never seen Dr. Conn for his possible tongue cancer and that he was evaluated by dentist and recommended to follow-up with oral surgery. Girlfriend states she plans to call [facility] oral surgery for follow-up for this. Plan is for [facility] to follow-up with patient next week for reevaluation. Glenn will follow up with patient over the weekend. Patient was unable to give a urine sample in the ED after multiple attempts. He states he has a history of BPH and has difficulty urinating at times. He refused a urine catheter. As he has no fever normal white blood cell count, and no other UTI symptoms, will hold on plan for urinalysis at this time and patient can follow-up with his primary care doctor regarding this. Medical Records Medical records reviewed: Yes I reviewed the patient's medical records. Lab Data Lab results reviewed: Yes I reviewed the patient's lab results. Laboratory Tests Range/Units 10/08/18 10/08/18 10/08/18 09:41 09:41 09:41 WBC (4.4-10.8) k/cumm 7.12 RBC (4.50-6.00) m/cumm 4.24 L Hgb (13.5-17.5) g/dL 13.0 L Hct (40.0-50.0) % 39.5 L MCV (80-95) fL 93.2 MCH (27.0-33.0) pg 30.7 MCHC (32.0-36.0) g/dL 32.9 RDW (11.8-14.1) % 13.4 Plt Count (130-400) x1000/uL 253 MPV (8.0-11.0) fL 10.1 Immature Gran % 0.3 Neutrophils % 75.3 Lymphocytes % 14.3 Monocytes % 9.6 Eosinophils % 0.1 Basophils % 0.4 Absolute Neutrophils (1.2-6.7) k/cumm 5.36 Absolute Lymphocytes (1.2-3.4) k/cumm 1.02 L Absolute Monocytes (0.11-0.7) k/cumm 0.68 Absolute Eosinophils (0.0-0.7) k/cumm 0.01 Absolute Basophils (0.0-0.2) k/cumm 0.03 Sodium (136-145) mmol/L 141 Potassium (3.5-5.1) mmol/L 3.2 L Chloride (98-107) mmol/L 102 Carbon Dioxide (21.0-32.0) mmol/L 27.2 Anion Gap (3-11) mmol/L 11.8 H BUN (7-18) mg/dL 16 Creatinine (0.70-1.30) mg/dL 0.70 Estimated GFR/1.73 m2 (mL/min/1.73m2) >= 60.00 Glucose (70-100) mg/dL 157 H Calcium (8.5-10.1) mg/dL 9.0 Total Bilirubin (0.2-1.0) mg/dL 0.7 AST (15-37) U/L 51 H ALT (12-78) U/L 91 H Alkaline Phosphatase (46-116) U/L 92 Total Protein (6.4-8.2) g/dL 7.5 Albumin (3.4-5.0) g/dL 4.1 TSH (0.358-3.74) uIU/mL 0.53 Ethyl Alcohol (<3) mg/dL < 3.0 HPI General Mode of arrival: ambulatory. Date/Time Provider Initiated Documentation: 10/08/18 08:59. Limitations to Documentation: no limitations. Information obtained by: patient. HPI Narrative: Patient is a 63-year-old male with a history of PTSD who presents for concern for genny. EMS states that the girlfriend called the ambulance this morning with concern for manic behavior. Patient has a known history of PTSD but unsure if he has a history of bipolar disorder. Per EMS, plan was for patient to go on vacation this morning, but he seems to be concerned about the plan for placement of his dog while away on vacation. Patient has been continually repeating statements regarding his dog this morning. Patient states that he plans to travel to [place] this morning. He is continually repeating statements regarding his dog which appear incomprehensible. He denies any pain. He states he has been sleeping normally. He denies taking any medications. He states he has had a poor appetite recently due to recent diagnosis of possible tongue cancer with biopsies. Per EMS, girlfriend should be arriving to ED shortly. Her EMS, growth and stated this behavior was outside of the norm for patient. Related Data Home Medications Medication Instructions Recorded Confirmed methadone 15 mg PO DAILY 10/08/18 10/08/18 Allergies Allergy/AdvReac Type Severity Reaction Status Date / Time No Known Allergies Allergy Unverified 10/08/18 13:01 Review of Systems Review of Systems All systems reviewed & are unremarkable except as noted in HPI and below Constitutional Reports as per HPI, Denies chills, Denies fever(s) and Reports poor appetite Eyes Denies blurry vision ENT Denies dizziness, Denies sore throat and Denies throat swelling Cardiovascular Denies chest pain and Denies dyspnea Respiratory Denies cough and Denies dyspnea Gastrointestinal Denies abdominal pain, Denies diarrhea and Denies vomiting Genitourinary Denies hematuria and Denies dysuria Musculoskeletal Denies back pain and Denies numbness Integumentary/Breasts Denies lesions and Denies rash Neurologic Denies dizziness, Denies focal weakness and Denies numbness Psychiatric Denies hallucinations, Denies homicidal ideation and Denies suicidal ideation Allergic/Immunologic Denies throat swelling [facility] Medical History Cancer determined by biopsy of tongue (Acute) PTSD (post-traumatic stress disorder) (Acute) Surgical History History of surgery on extremity (Acute) Social History Smoking/Tobacco Use Status: Current every day Alcohol Intake: never Drug use: Never Exam Const General: cooperative, healthy appearing and no acute distress [facility] Head: normal to inspection Ears: hearing grossly normal bilaterally and external ears normal General nose exam: external nose normal Face and sinus: normal facial exam Mouth: mucous membranes dry Teeth and gingiva: poor dentition and other (multiple missing teeth throughout) Throat: posterior oropharynx normal Eyes General: appearance normal, both eyes and all related structures Pupils: PERRL EOM: EOM intact bilaterally Neck Neck: normal visual inspection and No submandibular swelling Lymphatic: no lymphadenopathy noted Chest Chest: normal inspection of the chest and no tenderness Resp Effort & Inspection: normal respiratory effort and able to speak in complete sentences Auscultation: clear to auscultation bilaterally Cardio Rate: regular rate Rhythm: regular rhythm Skin General skin exam: no rashes or lesions noted Neuro General: alert, awake and oriented x3 Cranial Nerves: CN's II-XI intact bilaterally Cognition: normal cognition Speech: speech normal Motor: muscle tone normal throughout and strength 5/5 throughout Sensory Exam: no sensory deficits noted Extrem General: normal to inspection, full ROM and no edema Psych Appearance: grossly normal Mental Status: mental status grossly normal Speech and Movement: speech and movement normal Affect: normal affect
--- NOTE | 2018-10-08 09:10 | ED.GENADUL_ITS ---
Discharge Plan Disposition Patient Disposition: HOME Condition: Stable Discharge Details Chief Complaint: PsychEval Clinical Impression: Manic behavior Primary Care Provider: None,None ED Provider: Chasity Valles Home Meds and New Rx's Prescriptions: Continued methadone 5 mg/5 mL Solution 15 mg PO DAILY RF: 0 Discharge Instructions Instructions: Bipolar Disorder (ED) Additional Instructions: You will receive a call from [facility] for follow-up. Drink plenty of fluids and get plenty of rest. Return immediately to the emergency department with any worsening or new concerning symptoms. Discharge Data Discharge Date/Time-TO BE ENTERED AT DEPARTURE: 10/08/18 13:25 Discharge Physician: Chasity Valles Medical Decision Making 63-year-old male with a history of PTSD presents from home for concern for manic behavior. Patient has been repeating phrases regarding his dog this morning. Patient is redirectable and able to answer questions appropriately, but also making statements regarding his dog which are somewhat incomprehensible but some sense that he is concerned about where he is going to place his dog while on vacation. He denies suicidal homicidal ideation. He denies hallucinations, alcohol or drug use. He states he has been sleeping normally but has had poor appetite recently. He has had recent medical care regarding biopsies of his tongue for possible tongue cancer. HR tachycardic. Remainder of vitals within normal limits. Patient appears somewhat manic. At this point in time, will check screening labs and UA to rule out an organic cause. As there are no focal deficits, I do not see an indication for CT head at this time but will reassess. He has no complaints of chest pain, shortness of breath, with normal respirations and oxygen saturation so I do not see a cardiopulmonary cause as a primary etiology at this time. 1130 --labs reviewed. Potassium 3.2. 1220 --discussed with mental health who discussed with patient and girlfriend at bedside. Girlfriend feels that patient is much more relaxed and more at his baseline. She feels comfortable taking him home. Discussed with mental health Glenn -patient is redirectable and does not fit criteria for involuntary admission. Patient does not want to be admitted to the hospital and states he feels good to go home. There was discussion earlier regarding a possible tongue cancer which patient is seen Dr. Conn. This was discussed with Dr. Conn and he states he has not seen patient for the past 20 years. With further discussion with patient and girlfriend, she stated that the plan was for patient to follow-up with Dr. Conn in the future. She states the patient has never seen Dr. Conn for his possible tongue cancer and that he was evaluated by dentist and recommended to follow-up with oral surgery. Girlfriend states she plans to call [facility] oral surgery for follow-up for this. Plan is for [facility] to follow-up with patient next week for reevaluation. Glenn will follow up with patient over the weekend. Patient was unable to give a urine sample in the ED after multiple attempts. He states he has a history of BPH and has difficulty urinating at times. He refused a urine catheter. As he has no fever normal white blood cell count, and no other UTI symptoms, will hold on plan for urinalysis at this time and patient can follow-up with his primary care doctor regarding this. Medical Records Medical records reviewed: Yes I reviewed the patient's medical records. Lab Data Lab results reviewed: Yes I reviewed the patient's lab results. Laboratory Tests Range/Units 10/08/18 10/08/18 10/08/18 09:41 09:41 09:41 WBC (4.4-10.8) k/cumm 7.12 RBC (4.50-6.00) m/cumm 4.24 L Hgb (13.5-17.5) g/dL 13.0 L Hct (40.0-50.0) % 39.5 L MCV (80-95) fL 93.2 MCH (27.0-33.0) pg 30.7 MCHC (32.0-36.0) g/dL 32.9 RDW (11.8-14.1) % 13.4 Plt Count (130-400) x1000/uL 253 MPV (8.0-11.0) fL 10.1 Immature Gran % 0.3 Neutrophils % 75.3 Lymphocytes % 14.3 Monocytes % 9.6 Eosinophils % 0.1 Basophils % 0.4 Absolute Neutrophils (1.2-6.7) k/cumm 5.36 Absolute Lymphocytes (1.2-3.4) k/cumm 1.02 L Absolute Monocytes (0.11-0.7) k/cumm 0.68 Absolute Eosinophils (0.0-0.7) k/cumm 0.01 Absolute Basophils (0.0-0.2) k/cumm 0.03 Sodium (136-145) mmol/L 141 Potassium (3.5-5.1) mmol/L 3.2 L Chloride (98-107) mmol/L 102 Carbon Dioxide (21.0-32.0) mmol/L 27.2 Anion Gap (3-11) mmol/L 11.8 H BUN (7-18) mg/dL 16 Creatinine (0.70-1.30) mg/dL 0.70 Estimated GFR/1.73 m2 (mL/min/1.73m2) >= 60.00 Glucose (70-100) mg/dL 157 H Calcium (8.5-10.1) mg/dL 9.0 Total Bilirubin (0.2-1.0) mg/dL 0.7 AST (15-37) U/L 51 H ALT (12-78) U/L 91 H Alkaline Phosphatase (46-116) U/L 92 Total Protein (6.4-8.2) g/dL 7.5 Albumin (3.4-5.0) g/dL 4.1 TSH (0.358-3.74) uIU/mL 0.53 Ethyl Alcohol (<3) mg/dL < 3.0 HPI General Mode of arrival: ambulatory . Date/Time Provider Initiated Documentation: 10/08/18 08:59 . Limitations to Documentation: no limitations . Information obtained by: patient . HPI Narrative: Patient is a 63-year-old male with a history of PTSD who presents for concern for genny. EMS states that the girlfriend called the ambulance this morning with concern for manic behavior. Patient has a known history of PTSD but unsure if he has a history of bipolar disorder. Per EMS, plan was for patient to go on vacation this morning, but he seems to be concerned about the plan for placement of his dog while away on vacation. Patient has been continually repeating statements regarding his dog this morning. Patient states that he plans to travel to [place] this morning. He is continually repeating statements regarding his dog which appear incomprehensible. He denies any pain. He states he has been sleeping normally. He denies taking any medications. He states he has had a poor appetite recently due to recent diagnosis of possible tongue cancer with biopsies. Per EMS, girlfriend should be arriving to ED shortly. Her EMS, growth and stated this behavior was outside of the norm for patient. Related Data Home Medications Medication Instructions Recorded Confirmed methadone 15 mg PO DAILY 10/08/18 10/08/18 Allergies Allergy/AdvReac Type Severity Reaction Status Date / Time No Known Allergies Allergy Unverified 10/08/18 13:01 Review of Systems Review of Systems All systems reviewed & are unremarkable except as noted in HPI and below Constitutional Reports as per HPI, Denies chills, Denies fever(s) and Reports poor appetite Eyes Denies blurry vision ENT Denies dizziness, Denies sore throat and Denies throat swelling Cardiovascular Denies chest pain and Denies dyspnea Respiratory Denies cough and Denies dyspnea Gastrointestinal Denies abdominal pain, Denies diarrhea and Denies vomiting Genitourinary Denies hematuria and Denies dysuria Musculoskeletal Denies back pain and Denies numbness Integumentary/Breasts Denies lesions and Denies rash Neurologic Denies dizziness, Denies focal weakness and Denies numbness Psychiatric Denies hallucinations, Denies homicidal ideation and Denies suicidal ideation Allergic/Immunologic Denies throat swelling [facility] Medical History Cancer determined by biopsy of tongue (Acute) PTSD (post-traumatic stress disorder) (Acute) Surgical History History of surgery on extremity (Acute) Social History Smoking/Tobacco Use Status: Current every day Alcohol Intake: never Drug use: Never Exam Const General: cooperative, healthy appearing and no acute distress [facility] Head: normal to inspection Ears: hearing grossly normal bilaterally and external ears normal General nose exam: external nose normal Face and sinus: normal facial exam Mouth: mucous membranes dry Teeth and gingiva: poor dentition and other (multiple missing teeth throughout) Throat: posterior oropharynx normal Eyes General: appearance normal, both eyes and all related structures Pupils: PERRL EOM: EOM intact bilaterally Neck Neck: normal visual inspection and No submandibular swelling Lymphatic: no lymphadenopathy noted Chest Chest: normal inspection of the chest and no tenderness Resp Effort & Inspection: normal respiratory effort and able to speak in complete sentences Auscultation: clear to auscultation bilaterally Cardio Rate: regular rate Rhythm: regular rhythm Skin General skin exam: no rashes or lesions noted Neuro General: alert, awake and oriented x3 Cranial Nerves: CN's II-XI intact bilaterally Cognition: normal cognition Speech: speech normal Motor: muscle tone normal throughout and strength 5/5 throughout Sensory Exam: no sensory deficits noted Extrem General: normal to inspection, full ROM and no edema Psych Appearance: grossly normal Mental Status: mental status grossly normal Speech and Movement: speech and movement normal Affect: normal affect
[2018-10-08 09:47] LABS: Abs Immature Grans 0.02 k/cumm (0.0-0.09); Absolute Basophil Count 0.03 k/cumm (0.0-0.2); Absolute Eosinophil Count 0.01 k/cumm (0.0-0.7); Absolute Lymphocyte Count 1.02 k/cumm (1.2-3.4); Absolute Monocyte Count 0.68 k/cumm (0.11-0.7); Absolute Neutrophil Count 5.36 k/cumm (1.2-6.7); Basophils % 0.4; Eosinophils % 0.1; HCT 39.5 % (40.0-50.0); Immature Grans % 0.3; Lymphocytes % 14.3; Mean Corp. HGB Concentration 32.9 g/dL (32.0-36.0); Mean Corpuscular Hemoglobin 30.7 pg (27.0-33.0); Mean Corpuscular Volume 93.2 fL (80-95); Mean Platelet Volume 10.1 fL (8.0-11.0); Monocytes % 9.6; Neutrophils % 75.3; Platelet Count 253 x1000/uL (130-400); RBC 4.24 m/cumm (4.50-6.00); RBC Distribution Width 13.4 % (11.8-14.1); White Blood Cell Count 7.12 k/cumm (4.4-10.8)
[2018-10-08 10:02] LABS: ALT 91 U/L (12-78); AST 51 U/L (15-37); Albumin 4.1 g/dL (3.4-5.0); Alkaline Phosphatase 92 U/L (46-116); Anion Gap 11.8 mmol/L (3-11); BUN 16 mg/dL (7-18); Bilirubin, Total 0.7 mg/dL (0.2-1.0); CO2 27.2 mmol/L (21.0-32.0); Chloride 102 mmol/L (98-107); Glucose 157 mg/dL (70-100); Potassium 3.2 mmol/L (3.5-5.1); Sodium 141 mmol/L (136-145); Total Protein 7.5 g/dL (6.4-8.2)
[2018-10-08 10:20] LABS: ETHANOL BLOOD < 3.0 mg/dL (<3)
--- NOTE | 2018-10-08 12:04 | PDOC.MHCN ---
Date of service: 10/08/18 Time of Service: 12:04 Mental Health Crisis Note Presenting Issue How did you arrive at the ED and why did you come: Russell arrived to [facility] through [facility] due to concerns of escalated behaviors that made it difficult for he and his significant other to plan and go for a short-trip this weekend. He was transported by [facility] due to medical concerns seeming to override the behavioral concerns. Precipitating Factors Russell denies suicidal or homicidal ideation, planning, intent, or recent attempts. He does not disclose of a history of violence. He is concerned about potentially having cancer and is in the process of a medical make up and treatment team being formed to determine what type of medical problems may be occurring. However, he has presented with symptoms of genny such as elevated speech pattern (but not pressured). He has racing thoughts and disorganized thinking. However, he has not behaved erratically or responded to anyone or anything in ways that could be threatening or put he or others at risk of harm to self or others. Disposition BEHAVIOR: elevated, expansive, irritable EYE CONTACT: good MOOD: manic AFFECT: labile APPETITE: good SLEEP(trouble falling/staying asleep: poor, but he attributes this to back and hip problems Plan Russell will be released to his significant other to access medical services he is most concerned about. [facility] will do follow up phone calls over the weekend to make sure he and his significant other are managing the symptoms of genny. A referral to a med. prescriber at [facility] will be done. Both he and significant other understand that he meets criteria for voluntary admission if he was willing to go. However, they also understand that if behaviors escalate to aggression or threatening, he could be involuntarily hospitalized. They each agreed to call [facility] emergency services if managing the genny and anxiety about medical issues becomes too great.
--- NOTE | 2018-10-08 12:18 | PDOC.MHCN_ITS ---
Date of service: 10/08/18 Time of Service: 12:04 Mental Health Crisis Note Presenting Issue How did you arrive at the ED and why did you come: Russell arrived to [facility] through [facility] due to concerns of escalated behaviors that made it difficult for he and his significant other to plan and go for a short-trip this weekend. He was transported by [facility] due to medical concerns seeming to override the behavioral concerns. Precipitating Factors Russell denies suicidal or homicidal ideation, planning, intent, or recent attempts. He does not disclose of a history of violence. He is concerned about potentially having cancer and is in the process of a medical make up and treatment team being formed to determine what type of medical problems may be occurring. However, he has presented with symptoms of genny such as elevated speech pattern (but not pressured). He has racing thoughts and disorganized thinking. However, he has not behaved erratically or responded to anyone or anything in ways that could be threatening or put he or others at risk of harm to self or others. Disposition BEHAVIOR: elevated, expansive, irritable EYE CONTACT: good MOOD: manic AFFECT: labile APPETITE: good SLEEP(trouble falling/staying asleep: poor, but he attributes this to back and hip problems Plan Russell will be released to his significant other to access medical services he is most concerned about. [facility] will do follow up phone calls over the weekend to make sure he and his significant other are managing the symptoms of genny. A referral to a med. prescriber at [facility] will be done. Both he and significant other understand that he meets criteria for voluntary admission if he was willing to go. However, they also understand that if behaviors escalate to aggression or threatening, he could be involuntarily hospitalized. They each agreed to call [facility] emergency services if managing the genny and anxiety about medical issues becomes too great.
[2018-10-08 12:46] LABS: TSH (W/Ref FT4) 0.53 uIU/mL (0.358-3.74)
[2018-10-08 13:35] VITALS: BP 124/77; PULSE 97; RESP 16; TEMP 36.9; O2SAT 97
--- NOTE | 2018-10-08 13:46 | NUR.NOTE ---
unable to give us a urine. drinking water-unable to urinate at this time.-states it is not unusual.Nursing Note:
== END 2018-10-08 13:25 | disposition home or self-care (01) ==
PROVIDERS: Emergency Provider Physician Assistant
DX: F31.10 Bipolar disorder, current episode manic without psychotic features, unspecified (principal); F43.10 Post-traumatic stress disorder, unspecified
CPT/HCPCS: 36415; 80053; 80307; 99283; 80320; 81003; 84443; 85025

== ENCOUNTER 2018-10-19 11:14 | Outpatient (CLI) | payer MEDICARE, MEDICAID, SELFPAY ==
[2018-10-19 12:09] LABS: HCT 39.5 % (40.0-50.0); HGB 12.7 g/dL (13.5-17.5); Mean Corp. HGB Concentration 32.2 g/dL (32.0-36.0); Mean Corpuscular Hemoglobin 30.3 pg (27.0-33.0); Mean Corpuscular Volume 94.3 fL (80-95); Mean Platelet Volume 11.2 fL (8.0-11.0); Platelet Count 119 x1000/uL (130-400); RBC 4.19 m/cumm (4.50-6.00); RBC Distribution Width 13.7 % (11.8-14.1); White Blood Cell Count 2.89 k/cumm (4.4-10.8)
[2018-10-19 13:08] LABS: Anion Gap 8.2 mmol/L (3-11); BUN 12 mg/dL (7-18); CO2 28.8 mmol/L (21.0-32.0); CREATININE 0.75 mg/dL (0.70-1.30); Calcium 8.3 mg/dL (8.5-10.1); Chloride 100 mmol/L (98-107); Glucose 148 mg/dL (70-100); Potassium 3.3 mmol/L (3.5-5.1); Sodium 137 mmol/L (136-145); TSH (W/Ref FT4) 0.28 uIU/mL (0.358-3.74)
[2018-10-19 13:26] LABS: FREE T4 1.47 ng/dL (0.76-1.46)
== END 2018-10-19 11:34 ==
PROVIDERS: PCP General Practice; Visit Provider General Practice
DX: E87.5 Hyperkalemia (principal); E05.90 Thyrotoxicosis, unspecified without thyrotoxic crisis or storm; R19.7 Diarrhea, unspecified; K92.2 Gastrointestinal hemorrhage, unspecified
CPT/HCPCS: 36415; 80048; 85027; 84439; 84443

== ENCOUNTER 2018-10-27 18:20 | Observation (INO) | payer MEDICARE, MEDICAID, SELFPAY ==
[2018-10-27 18:32] VITALS: BP 142/86; PULSE 126; RESP 20; TEMP 37.7; O2SAT 96
[2018-10-27] MEDS: LORazepam 1 MG TAB 2 MG PO (18:35)
[2018-10-27] MEDS: Haloperidol 5 MG/ML VIAL 4 MG IM (18:36)
[2018-10-27 19:07] LABS: Abs Immature Grans 0.02 k/cumm (0.0-0.09); Absolute Basophil Count 0.03 k/cumm (0.0-0.2); Absolute Eosinophil Count 0.06 k/cumm (0.0-0.7); Absolute Lymphocyte Count 1.53 k/cumm (1.2-3.4); Absolute Monocyte Count 0.72 k/cumm (0.11-0.7); Basophils % 0.4; Eosinophils % 0.8; HCT 40.9 % (40.0-50.0); Immature Grans % 0.3; Lymphocytes % 20.5; Mean Corp. HGB Concentration 34.2 g/dL (32.0-36.0); Mean Corpuscular Hemoglobin 31.6 pg (27.0-33.0); Mean Corpuscular Volume 92.3 fL (80-95); Mean Platelet Volume 9.8 fL (8.0-11.0); Monocytes % 9.7; Neutrophils % 68.3; Platelet Count 270 x1000/uL (130-400); RBC 4.43 m/cumm (4.50-6.00); RBC Distribution Width 13.4 % (11.8-14.1); White Blood Cell Count 7.46 k/cumm (4.4-10.8)
[2018-10-27 19:08] LABS: BE (Venous) 2.1 mmol/L (-3-3); HCO3 (Venous) 26 mmol/L (22-28); O2 Sat (Venous) 97 % (70-80); TCO2 (Venous) 23 mmol/L (22-29); pCO2 (Venous) 36 mm/Hg (34-47); pH (Venous) 7.46 (7.32-7.43); pO2 (Venous) 82 mm/Hg (28-44)
[2018-10-27 19:23] LABS: Ammonia 32 umol/L (11-32)
[2018-10-27 19:26] LABS: ALT 64 U/L (12-78); AST 29 U/L (15-37); Albumin 4.1 g/dL (3.4-5.0); Alkaline Phosphatase 79 U/L (46-116); Anion Gap 11.3 mmol/L (3-11); BUN 22 mg/dL (7-18); Bilirubin, Total 1.1 mg/dL (0.2-1.0); CO2 25.7 mmol/L (21.0-32.0); CREATININE 0.75 mg/dL (0.70-1.30); Calcium 8.9 mg/dL (8.5-10.1); Chloride 103 mmol/L (98-107); Glucose 123 mg/dL (70-100); Potassium 3.3 mmol/L (3.5-5.1); Sodium 140 mmol/L (136-145); Total Protein 7.4 g/dL (6.4-8.2)
--- NOTE | 2018-10-27 19:28 | ED.GENADUL_ITS ---
Discharge Plan Disposition Patient Disposition: [facility] INPATIENT Condition: Serious Discharge Details Chief Complaint: PsychEval Clinical Impression: Acute psychosis, Homicidal ideation, Suicidal ideation, Delusional disorder Admit Date/Time: 10/28/18 18:21 Admit Provider: iNk Perea Attending Provider: Nik Perea Primary Care Provider: Jairo Conn ED Provider: Chasity Valles Discharge Data Discharge Date/Time-TO BE ENTERED AT DEPARTURE: 10/28/18 19:35 Medical Decision Making <Agus Joyce DO - Last Filed: 10/27/18 22:58> This is a 63-year-old male with past medical history of PTSD, known mental health disease, however he has not been seeking health vet assistant, or following up with any of the appointments made or directed by his mental health advocates. Over the last few days the patient has become notably paranoid, delusional, making various claims of homicidal ideations and questionable suicidal ideations in the setting of a delusional and psychotic manner. His symptoms climaxed today with notably pressured speech, flight of ideas, tangential speech, voicing multiple delusional complaints, statements, and observations. He was brought in to the ER for emergency evaluation by police, after an emergency court order was made. Here in the ED he demonstrates signs and symptoms clinically consistent with a notable psychotic episode, he appears to be both a threat to himself and others with his pressured and aggressive speech and behavior, his complete lack of insight, and his notably concerning homicidal and suicidal claims. On arrival out of concern for the patient and with his notably concerning signs and symptoms initially tried verbal de- escalation this did not result in any improvement. He was then given oral and IM Haldol and Ativan, which he accepted readily, and it was not forced on him. He made his own supposition that this medication would give him the power that he needed to be healed and be close to God. Patient's notable acute psychosis, and risk for himself and others, laboratory work-up was performed with no significant abnormalities. Hemoglobin is stable, platelets normal, no white count, renal function is normal, potassium is minimally low at 3.3, BUN is elevated suggesting mild dehydration. He is readily drinking here. Renal function otherwise stable. Ammonia and TSH are normal, still pending urinalysis, salicylates and acetaminophen are normal. Currently on my review the patient appears medically clear. No evidence of acute life-threatening medical abnormality that can be appreciated with current labs, vital signs and medical disposition. The patient will be placed on observation with every 15 minute documentation. Until health is been readily a part of his time here in the ED. We are seeking current placement and admission for acute psychosis. Patient will be signed out to my colleague Dr. Skelton for final disposition and potential admission. <Christiano Skelton MD - Last Filed: 10/28/18 19:57> Patient is here on an EE and has been seen by [facility]. He has had a one to one sitter. He asked for medications to help him sleep and was given hadol or benadryl orally. He slept most of the night. He is awaiting second cert. [facility] to return this morning to continue working on placement. Patient signed out to Dr. Valles. Lab Data Lab results reviewed: Yes I reviewed the patient's lab results. <Chasity Valles DO - Last Filed: 10/29/18 10:43> Please see previous providers' notes for initial presentation, exam, and plan. Case endorsed to f/u with [facility] regarding final disposition. 1300 -- Girlfriend present at bedside and expressed concern about pt's pressured speech and requesting that he be given medicine. Pt received Haldol and ativan yesterday. He does demonstrate pressured and tangential speech but otherwise has been calm and does not appear to be an acute risk to himself or others at this time. Discussed with her that he appears to be in an acute psychotic state but will reserve medications in the case of concern for safety and she is agreeable. Also had a long discussion with girlfriend regarding her concern for pt's bloody diarrhea for 1 month. She states he has already been seen by his pcp Dr. Conn for this who has referred him for outpatient testing. Discussed with her that he is medically cleared today with a normal hemoglobin and hemodynamically stable and his acute need at this time appears to be his acute psychotic state and he can continue plan for further outpatient testing of his diarrhea. 181 -- Second certificate approved. D/w mental health -- pt will likely go to the [facility] tomorrow morning but they will not accept tonight. Will admit to the floor for observation overnight until mental health resumes plan tomorrow. 182 -- D/w hospitalist - accepts pt for admission. Medical Records Please see previous providers' notes for initial presentation, exam, and plan. Case endorsed to f/u with mental health regarding final disposition. 1300 -- Girlfriend present at bedside and expressed concern about pt's pressured speech and requesting that he be given medicine. Pt received Haldol and ativan yesterday. Pt has been intermittently like this while in the ED. He has not been a risk to himself or others and I do not s HPI <Agus Joyce, - Last Filed: 10/27/18 22:58> General Date/Time Provider Initiated Documentation: 10/27/18 18:23 . HPI Narrative: This is a 63-year-old male with a past medical history of hepatitis C, PTSD, previous psychiatric disorders, who presents today for evaluation of acute psychotic episode. Mental health has been attempting to manage the patient on an outpatient base. Over the last few days the patient notable increase in his paranoia, murmur multiple ideas. States that he had been increasing in his violent [place], with most of his aggression being directed towards Dr. Conn, and various charges and other mental health advocates. Patient had stated that he thought he might have to kill these people, mainly he was focused on various medical health issues, some of which were true and some of which were dillusional. The patient symptoms climax today when he had a severe worsening of his mental status, demonstrated notable signs of genny, and continued to make threats of various medical and mental health professionals. Please were contacted, emergency court order was made, and the patient was brought into the ER for emergent evaluation. Currently the patient is speaking with notably pressured speech, tangential thinking, flight of ideas, going on about illusional components, with words and phrases that are incomplete and not make any sense. At this time the focus is ideas to orbit around need to get dart, and need to take me away right now, need to go up to heaven, if I then he can take care of things. I might , other people might , I have so much power, I have mild power in the world! The patient is otherwise directable, is not showing any violent behavior, however he is notably aggressive and intense in his activity. Related Data Home Medications Medication Instructions Recorded Confirmed ibuprofen 600 mg PO DAILY 09/17/18 10/27/18 lorazepam [Ativan] 1 mg PO TID 09/17/18 10/27/18 Allergies Allergy/AdvReac Type Severity Reaction Status Date / Time No Known Allergies Allergy Unverified 10/27/18 20:49 General Stated Complaint: PsychEval MONISHA: 2 Review of Systems <Agus Joyce DO - Last Filed: 10/27/18 22:58> Review of Systems All systems reviewed & are unremarkable except as noted in HPI and below PFSH <Agus Joyce DO - Last Filed: 10/27/18 22:58> Medical History Cancer determined by biopsy of tongue (Acute) Diarrhea (Acute) Weight loss (Acute) Back pain (Chronic) Hepatitis C (Chronic) PTSD (post-traumatic stress disorder) (Chronic) PTSD (post-traumatic stress disorder) (Chronic) Back fracture (Resolved) Surgical History History of surgery on extremity (Resolved) Social History Smoking/Tobacco Use Status: Current every day Tobacco Type: cigarettes Alcohol Intake: never Drug use: Never Substance use type: does not use Do you feel safe at home: Yes Do you feel safe in your relationship?: Yes Exam <Agus R DO Maria Del Carmen - Last Filed: 10/27/18 22:58> Narrative Exam Narrative: 1.Const: Thin, elderly, appearing older than stated age 2.Eyes: PERRL, no conjunctival injection, and symmetrical lids. 3.ENT: Atraumatic external nose and ears. Moist MM. Neck: Symmetric, trachea midline, No thyromegaly. 4.CVS: +S1/S2, No murmurs or gallops. Peripheral pulses 2+ and equal in all extremities. Brisk capillary refill in all extremities. 5.RESP: Unlabored respiratory effort. Clear to auscultation bilaterally. No wheezes rales or rhonchi 6.GI: Soft, Nontender/Nondistended, No hepatosplenomegaly. No guarding or rebound. 7.MSK: Normocephalic/Atraumatic, Extremities w/o deformity or ttp No cyanosis or clubbing, Normal movement of all extremities 8.Skin: Warm, Dry. No rashes or lesions. 9.Neuro: welding machine setter II-XII grossly intact. Sensation grossly intact, no focal neurologic deficits. 10.Psych: (AAO) x0, notably pressured speech, flight of ideas, tangential thinking, various fragmented homicidal and suicidal statements. Notably psychotic. Course <Agus Joyce, DO - Last Filed: 10/27/18 22:58> Vital Signs Temperature 37.7 C H 10/27/18 18:32 Pulse 126 H 10/27/18 18:32 Respiratory Rate 20 10/27/18 18:32 Blood Pressure 142/86 H 10/27/18 18:32 Pulse Oximetry 96 10/27/18 18:32 Temperature 37.7 C H 10/27/18 18:32 Temperature Source Temporal Artery Scan 10/27/18 18:32 Pulse 126 H 10/27/18 18:32 Respiratory Rate 20 10/27/18 18:32 Respiratory Effort 10/27/18 18:38 Blood Pressure 142/86 H 10/27/18 18:32 Pulse Oximetry 96 10/27/18 18:32 Oxygen Delivery Method Room Air 10/27/18 19:05 Oxygen Flow Rate 0 10/27/18 19:05 Lab/Test Results Lab/Test Results: Laboratory Tests Range/Units 10/27/18 10/27/18 19:00 19:00 WBC (4.4-10.8) k/cumm 7.46 RBC (4.50-6.00) m/cumm 4.43 L Hgb (13.5-17.5) g/dL 14.0 Hct (40.0-50.0) % 40.9 MCV (80-95) fL 92.3 MCH (27.0-33.0) pg 31.6 MCHC (32.0-36.0) g/dL 34.2 RDW (11.8-14.1) % 13.4 Plt Count (130-400) x1000/uL 270 D MPV (8.0-11.0) fL 9.8 Immature Gran % 0.3 Neutrophils % 68.3 Lymphocytes % 20.5 Monocytes % 9.7 Eosinophils % 0.8 Basophils % 0.4 Absolute Neutrophils (1.2-6.7) k/cumm 5.10 Absolute Lymphocytes (1.2-3.4) k/cumm 1.53 Absolute Monocytes (0.11-0.7) k/cumm 0.72 H Absolute Eosinophils (0.0-0.7) k/cumm 0.06 Absolute Basophils (0.0-0.2) k/cumm 0.03 VBG pH (7.32-7.43) 7.46 H VBG pCO2 (34-47) mm/Hg 36 VBG pO2 (28-44) mm/Hg 82 H VBG HCO3 (22-28) mmol/L 26 VBG Total CO2 (22-29) mmol/L 23 VBG O2 Saturation (70-80) % 97 H VBG Base Excess (-3-3) mmol/L 2.1 Sign Out <Agus Joyce DO - Last Filed: 10/27/18 22:58> Sign Out Data: Sign Out Comment: Pending mental health placement. Last updated by Agus Joyce DO at 10/27/18 21:06 Sign Out Comment: Patient is on EE and is pending second cert and placement. Last updated by Christiano Skelton MD at 10/28/18 08:30
[2018-10-27 19:40] LABS: TSH (W/Ref FT4) 0.54 uIU/mL (0.358-3.74)
[2018-10-27 19:45] LABS: Salicylate < 2.8 mg/dL (2.8-20.0)
[2018-10-27 19:47] LABS: Acetaminophen < 2 ug/mL (10-30)
[2018-10-27 19:52] LABS: ETHANOL BLOOD < 3.0 mg/dL (<3)
--- NOTE | 2018-10-27 20:10 | PDOC.ERCMPRO ---
Care Management Progress Note S/O: Russell presents to [facility] ED escorted by the police and was in handcuffs. Handcuffs were immediately removed and he was transferred from police protective custody to the clinical staff. Russell has been in a manic state apparently for the past several weeks and experienced several days of increased behavioral disturbance, lack of sleep, manic behavior and psychosis. He has been threatening to shoot people with his muzzle notched blade loader including the physicians who have been trying to help him. He is not currently actively voicing any intent to harm himself. He is still verbally threatening to harm his caregivers and the [facility] call worker. He is responding to verbal redirection and has not attempted to physically assault anyone at this point. He was offered medication to help him calm down and accepted Haldol and Ativan. Significant other, Grisel, reports that he missed his appointment yesterday with his medication prescriber at [facility] and she had it rescheduled for November. Apparently he also had an appointment with [facility]iatry at the [facility] which was missed because they traveled to the [facility] in [facility] instead of [place], [place] where the appointment was scheduled. Russell was an inpatient for Psychiatric care at the [facility] in the past. Russell has been unable to communicate appropriately and express his needs. He has focused on his thyroid and other medical conditions and appointments he thinks are scheduled at [facility] in the morning. We have verified that he does have tests scheduled at [facility] next week. He was seen in the ED 09-18-18 and at that time per ROSANGELA and , presented with what appeared to be some form of genny though he does not have prior history of any episodic genny. 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 Please refer to that note. Per and ROSANGELA, Russell has been unable to exhibit capacity due to flight of ideas, and grandiose statements, such so that in addition to not being agreeable to voluntary hospitalization the decision was made to pursue involuntary hold for placement. Please see ROSANGELA and notes for further information. INVOLUNTARY FOR INPATIENT PSYCHIATRIC STABILIZATION. EE completed and he is now on involuntary status. High risk for elopement and high risk for impulsive, aggressive behaviors. Russell is unpredictable in terms of his response at this time and cannot agree to inpatient psychiatric treatment but is at risk for harming himself and others. Safety plan has been established with patient, and care team, to adhere to patient goals, identify restrictions based on behavioral status, address nutrition, and determine allowed personal belongings, tools for hygiene and personal care. Determine level of activity including ambulation, level of supervision, visitors, and determine privileges based on behaviors and level of engagement by patient; please note safety plan below. Huddle Participants: Dr. Joyce, Dr. Skelton, Tg, RN, Brisa, Beater Operator, Glenn [facility], BETY Fuentes-Tender Labor SAFETY PLAN: ED Room #5 MS 10/27/18 21:00 1. Will remain on suicide precautions. In Paper Clothes 2. Will remain in room under direct supervision of one-on-one staff at all times provided by [employer]; [employer], SPECIAL EDUCATION PARAPROFESSIONAL machine shop inspector. 3. May have paper cups, plates, finger foods. 4. Follow [facility] Management of the Admitted Behavioral Health Patient policy. 5. Comfort bath system only. 6. No personal belongings. 7. Visitors limited to his significant other, Grisel. 9. Bathroom privileges: escort to bathroom at RN discretion. 10. No Phone at this time. 11. Will remain in the ED as there are no beds available at this time. Beater Operator will determine transfer to /S based on bed availability and staffing. 12. Due to INVOLUNTARY status, the patient must remain in the hospital. Second Certification will be scheduled with [facility]. Patient is currently involuntarily at [facility] and in need of inpatient psychiatric admission when a bed becomes available. [place] [facility], [facility], [place], [place] (no longer accepts involuntary patients), [facility] have all been contacted and there are no beds available [facility]. [facility] and [place] will accept referrals to consider for admission in the morning. [facility] Frontline Machine Veneer Repairer will continue seeking placement. Please contact the Softball Umpire Tender Labor ([phone]) and [facility] Machine Veneer Repairer ([phone]) for any needed changes in the Safety Plan. Safety plan has been provided to interdepartmental care team including Clinical Coordinator, Nursing Professional Organizer
--- NOTE | 2018-10-27 20:25 | PDOC.MHCN ---
Date of service: 10/27/18 Time of Service: 20:25 Mental Health Crisis Note Presenting Issue How did you arrive at the ED and why did you come: Russell arrived on a warrant for immediate evaluation filed by [facility] due to increasing symptoms of genny that has led to symptoms of psychoses. Precipitating Factors Russell presents with ideas of reference, agitation, grandiosity, and disorganized thinking. His mood is elevated and his affect is irritable. He is delusional about some of his care providers and the intent behind interventions. 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 From this, he has identified several people that he would like to hurt and will hurt if he feels they are interfering with him. He has reported he can use the gun if he has to and will. His thoughts are tangential to loosely associated. He has a lack of insight into his symptoms and has had difficulty getting all the care needs for both mental health and medical concerns addressed. As a result, symptoms of psychoses seems to have developed from the untreated genny that has been present for approximately six weeks. Finally, due to persistence of delusional thinking and tangential to loosely associated thought, it is difficult to determine what his medical issues are and may need further investigating. Disposition BEHAVIOR: sullen, disdainful, irritable, pressured speech EYE CONTACT: fair MOOD: elevated to manic AFFECT: labile (can deescalate when prompted but elevate to irritability, anger, grandiosity, and posturing that indicates what he feels he can do to hurt others or instill fear in others) APPETITE: poor (reports/both he and girlfriend/that he has lost almost 50 pounds in six weeks SLEEP(trouble falling/staying asleep: poor, not falling or staying asleep Plan Russell will remain at [facility] for 2nd certification on an application for involuntary treatment. There are not any beds available at [facility], [place], [facility], [facility], or [facility]. [facility] does not accept any involuntary admissions. [facility] will take referral information in the morning when discharges occur, but they are full at this time. [facility] will continue to help monitor patient in the hospital and work on placement. [facility] care plan and huddle has been completed. His girlfriend will bring in appointment cards to help clarify medical appointments scheduled to help assess medical risks if needed. Signature Clinician's Name/Title: Glenn Daly [facility]
[2018-10-27 20:46] VITALS: BP 126/77; PULSE 92; RESP 16; TEMP 37; O2SAT 99
--- NOTE | 2018-10-27 20:53 | PDOC.MHCN_ITS ---
Date of service: 10/27/18 Time of Service: 20:25 Mental Health Crisis Note Presenting Issue How did you arrive at the ED and why did you come: Russell arrived on a warrant for immediate evaluation filed by [facility] due to increasing symptoms of genny that has led to symptoms of psychoses. Precipitating Factors Russell presents with ideas of reference, agitation, grandiosity, and disorganized thinking. His mood is elevated and his affect is irritable. He is delusional about some of his care providers and the intent behind interventions. 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 From this, he has identified several people that he would like to hurt and will hurt if he feels they are interfering with him. He has reported he can use the gun if he has to and will. His thoughts are tangential to loosely associated. He has a lack of insight into his symptoms and has had difficulty getting all the care needs for both mental health and medical concerns addressed. As a result, symptoms of psychoses seems to have developed from the untreated genny that has been present for approximately six weeks. Finally, due to persistence of delusional thinking and tangential to loosely associated thought, it is difficult to determine what his medical issues are and may need further investigating. Disposition BEHAVIOR: sullen, disdainful, irritable, pressured speech EYE CONTACT: fair MOOD: elevated to manic AFFECT: labile (can deescalate when prompted but elevate to irritability, anger, grandiosity, and posturing that indicates what he feels he can do to hurt others or instill fear in others) APPETITE: poor (reports/both he and girlfriend/that he has lost almost 50 pounds in six weeks SLEEP(trouble falling/staying asleep: poor, not falling or staying asleep Plan Russell will remain at [facility] for 2nd certification on an application for involuntary treatment. There are not any beds available at [facility], [place], [facility], [facility], or [facility]. [facility] does not accept any involuntary admissions. [facility] will take referral information in the morning when discharges occur, but they are full at this time. [facility] will continue to help monitor patient in the hospital and work on placement. [facility] care plan and huddle has been completed. His girlfriend will bring in appointment cards to help clarify medical appointments scheduled to help assess medical risks if needed. Signature Clinician's Name/Title: Glenn Daly [facility]
[2018-10-27] MEDS: Haloperidol 5 MG TAB PO (20:54)
[2018-10-27] MEDS: diphenhydrAMINE 25 MG CAP PO (20:54)
--- NOTE | 2018-10-27 21:34 | CMPROGNOTE_ITS ---
Care Management Progress Note S/O: Russell presents to [facility] ED escorted by the police and was in handcuffs. Handcuffs were immediately removed and he was transferred from police protective custody to the clinical staff. Russell has been in a manic state apparently for the past several weeks and experienced several days of increased behavioral disturbance, lack of sleep, manic behavior and psychosis. He has been threatening to shoot people with his muzzle bulk loader including the physicians who have been trying to help him. He is not currently actively voicing any intent to harm himself. He is still verbally threatening to harm his caregivers and the [facility] vessel slag worker. He is responding to verbal redirection and has not attempted to physically assault anyone at this point. He was offered medication to help him calm down and accepted Haldol and Ativan. Significant other, Grisel, reports that he missed his appointment yesterday with his medication prescriber at [facility] and she had it rescheduled for November. Apparently he also had an appointment with Psychiatry at the [facility] which was missed because they traveled to the [facility] in [facility] instead of [place], [place] where the appointment was scheduled. Russell was an inpatient for Psychiatric care at the [facility] in the past. Russell has been unable to communicate appropriately and express his needs. He has focused on his thyroid and other medical conditions and appointments he thinks are scheduled at [facility] in the morning. We have verified that he does have tests scheduled at [facility] next week. He was seen in the ED 09-18-18 and at that time per ROSANGELA and , presented with what appeared to be some form of genny though he does not have prior history of any episodic genny. 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 Please refer to that note. Per and ROSANGELA, Russell has been unable to exhibit capacity due to flight of ideas, and grandiose statements, such so that in addition to not being agreeable to voluntary hospitalization the decision was made to pursue involuntary hold for placement. Please see ROSANGELA and notes for further information. INVOLUNTARY FOR INPATIENT PSYCHIATRIC STABILIZATION. EE completed and he is now on involuntary status. High risk for elopement and high risk for impulsive, aggressive behaviors. Russell is unpredictable in terms of his response at this time and cannot agree to inpatient psychiatric treatment but is at risk for harming himself and others. Safety plan has been established with patient, and care team, to adhere to patient goals, identify restrictions based on behavioral status, address nutrition, and determine allowed personal belongings, tools for hygiene and personal care. Determine level of activity including ambulation, level of supervision, visitors, and determine privileges based on behaviors and level of engagement by patient; please note safety plan below. Huddle Participants: Dr. Joyce, Dr. Skelton, Tg, RN, Brisa, Brake Drum Lathe Operator, Glenn [facility], BETY Fuentes-Show Girl SAFETY PLAN: ED Room #5 MS 10/27/18 21:00 1. Will remain on suicide precautions. In Paper Clothes 2. Will remain in room under direct supervision of one-on-one staff at all times provided by [employer]; LEA, BOAT REPAIRER pupil personnel worker. 3. May have paper cups, plates, finger foods. 4. Follow [facility] Management of the Admitted Behavioral Health Patient policy. 5. Comfort bath system only. 6. No personal belongings. 7. Visitors limited to his significant other, Grisel. 9. Bathroom privileges: escort to bathroom at RN discretion. 10. No Phone at this time. 11. Will remain in the ED as there are no beds available at this time. Brake Drum Lathe Operator will determine transfer to /S based on bed availability and staffing. 12. Due to INVOLUNTARY status, the patient must remain in the hospital. Second Certification will be scheduled with [facility]. Patient is currently involuntarily at [facility] and in need of inpatient psychiatric admission when a bed becomes available. [place] [facility], [facility], [place], [place] (no longer accepts involuntary patients), [facility] have all been contacted and there [facility]. [facility] and [facility] will accept referrals to consider for admission in the morning. [facility] Frontline Resident Care Aide will continue seeking placement. Please contact the Corporate Communications Intern Show Girl ([phone]) and [facility] Resident Care Aide ([phone]) for any needed changes in the Safety Plan. Safety plan has been provided to interdepartmental care team including Clinical Coordinator, Nursing Fork Truck Operator
[2018-10-27 23:39] VITALS: RESP 16
[2018-10-28] VITALS (9 sets, daily range): BP systolic 130–151; BP diastolic 86–93; PULSE 79–129; RESP 16–24; TEMP 37.2–37.7; O2SAT 96–97
[2018-10-28 01:01] LABS: Bilirubin Negative (Negative); Blood Negative (Negative); Clarity Clear; Glucose Negative (Negative); Ketones 15 mg/dL (Negative); Leukocyte Esterase Negative (Negative); Nitrite Negative (Negative); Specific Gravity 1.025 (1.005-1.025); Urobilinogen 0.2 EU/dL (Up TO 0.2)
[2018-10-28 01:16] LABS: *AMPHETAMINES SCREEN URINE Negative (Negative); *BARBITURATES SCREEN URINE Negative (Negative); *BENZODIAZEPINES SCREEN URINE POSITIVE (Negative); Cannabinoids THC POSITIVE (Negative); Cocaine Screen,Urine Negative (Negative); METHADONE URINE SCREEN Negative (Negative); OPIATES URINE SCREEN Negative (Negative)
[2018-10-28 01:17] LABS: Tricyclic Antidepressants Negative (Negative)
--- NOTE | 2018-10-28 02:12 | NUTRITION ---
gingerale and crackers given to pt.
--- NOTE | 2018-10-28 07:04 | NUR.NOTE ---
Nursing Note: Received nursing report from previous RN. Patient is awake at this time with cooperative behavior. Offered breakfast.
--- NOTE | 2018-10-28 09:20 | NUR.NOTE ---
Nursing Note: Patient continues to be pleasant and cooperative although confused with bizarre thought processes.
--- NOTE | 2018-10-28 09:27 | PDOC.MHCN ---
Date of service: 10/28/18 Time of Service: 09:27 Mental Health Crisis Note Presenting Issue How did you arrive at the ED and why did you come: Russell arrived on a warrant for immediate evaluation yesterday evening. Precipitating Factors Russell continues to present with pressured speech that is also slurred. His mood remains manic and he is getting Haldol injections and Ativan. He denies wanting to hurt others and himself at this time, but still remains delusional. He believes he is a cancer patient and is anxious about medical appointments that are standard outpatient procedures due to delusions that he is going to . Due to medication, he does not seem as agitated today, but he is still fixated on beliefs of his medical acuity. However, he continues to state that he will pay back anyone he feels threatened by or prevents him from getting the care he needs. Threats have ranged during this episode from threats of law suites, bodily injury, or if needed a gun. Disposition BEHAVIOR: cooperative but sedated to somnolent EYE CONTACT: fair MOOD: anxious AFFECT: constricted but thought pattern is still elevated and thoughts are slightly wandering to tangential APPETITE: fair/drinking lots of water, but only eating a little SLEEP(trouble falling/staying asleep: good with help of medication/poor prior to warrant when screened at his house Plan Continue to hold at [facility] for placement. [facility] has taken a referral. [facility] is also actively screening. [facility] is full. [facility] will only be accepting from their E[facility] and can't take an involuntary today. [facility] is not able to offer him a bed at this time.
--- NOTE | 2018-10-28 09:54 | PDOC.MHCN_ITS ---
Date of service: 10/28/18 Time of Service: 09:27 Mental Health Crisis Note Presenting Issue How did you arrive at the ED and why did you come: Russell arrived on a warrant for immediate evaluation yesterday evening. Precipitating Factors Russell continues to present with pressured speech that is also slurred. His mood remains manic and he is getting Haldol injections and Ativan. He denies wanting to hurt others and himself at this time, but still remains delusional. He believes he is a cancer patient and is anxious about medical appointments that are standard outpatient procedures due to delusions that he is going to . Due to medication, he does not seem as agitated today, but he is still fixated on beliefs of his medical acuity. However, he continues to state that he will pay back anyone he feels threatened by or prevents him from getting the care he needs. Threats have ranged during this episode from threats of law suites, bodily injury, or if needed a gun. Disposition BEHAVIOR: cooperative but sedated to somnolent EYE CONTACT: fair MOOD: anxious AFFECT: constricted but thought pattern is still elevated and thoughts are slightly wandering to tangential APPETITE: fair/drinking lots of water, but only eating a little SLEEP(trouble falling/staying asleep: good with help of medication/poor prior to warrant when screened at his house Plan Continue to hold at [facility] for placement. [facility] has taken a referral. [facility] is also actively screening. [facility] is full. [facility] will only be accepting from their E[facility] and can't take an involuntary today. [facility] is not able to offer him a bed at this time.
--- NOTE | 2018-10-28 10:58 | NUR.NOTE ---
Nursing Note: Patient in room, safety clothes on with patient observer with patient. Patient continues bizarre conversation and is difficult to understand. Cooperative with care.
--- NOTE | 2018-10-28 11:22 | CMPROGNOTE_ITS ---
Care Management Progress Note 10/28Mohinder from [facility] is here and still looking for bed availability. At this time, no beds. Russell is here under EE status. State will notify when the second cert needs to be done. 24 hours will be up around 530 PM. Russell has been cooperative and appropriate. No changes in Safety Plan at this time. Will continue to monitor and assist.
--- NOTE | 2018-10-28 13:05 | NUR.NOTE ---
Nursing Note: Patient awake and appropriate in room with observer. Continues to have an altered mental status. Given lunch.
--- NOTE | 2018-10-28 14:20 | NUR.NOTE ---
Nursing Note: Patient's S/O, Grisel, came in to visit (as permitted per care plan) and patient became more agitated towards her. Continues to mumble and speak nonstop as he has since start of shift and S/O concerned, stating he never speaks like this. S/O requesting that we give him something. It was explained to S/O that the patient has been cooperative regardless of rapid speech and bizarre speech and that it wasn't for the patient's best interests to medicate him as he was able to still function, eating and drinking. At one point, S/O gave patient a pen, which this scribe immediately interjected asking for the pen from pt, who complied and the care plan was explained to the S/O who took the pen back. When the S/O went to the waiting room for a quick phone call, this scribe and BETY Sandy approached S/O under the request of the Dr. Valles to limit patient visitors at this time for the patient's best interest and safety. S/O understood the reason for limiting visitors and agreeable at this time with a request to be notified of any changes. Advised she can call at any time for an update at this time. Patient is in room, cooperative with care.
--- NOTE | 2018-10-28 15:33 | PDOC.ERCMPRO ---
Care Management Progress Note 10/27-Russell's girlfriend Grisel came in today to see Russell. Russell's behavior was a little elevated while she was here. Nimesh along with nursing had a discussion with Grisel and she was in agreement for Russell to have no visitors. Discussion with BETY Alvarado Nursing Student Success Advisor and he is in agreement with the change in the safety plan to reflect no visitors. That is the only change in the plan. Discussion with Dr. Valles who is in agreement with the change in plan. Glenn has called hospitals again. [facility]. [facility] has declined. The state has not notified [facility] yet of the time for the second cert. New safety plan was written and distributed according to policy. INVOLUNTARY FOR INPATIENT PSYCHIATRIC STABILIZATION. EE completed and he is now on involuntary status. High risk for elopement and high risk for impulsive, aggressive behaviors. Russell is unpredictable in terms of his response at this time and cannot agree to inpatient psychiatric treatment but is at risk for harming himself and others. Safety plan has been established with patient, and care team, to adhere to patient goals, identify restrictions based on behavioral status, address nutrition, and determine allowed personal belongings, tools for hygiene and personal care. Determine level of activity including ambulation, level of supervision, visitors, and determine privileges based on behaviors and level of engagement by patient; please note safety plan below. SAFETY PLAN: ED Room #5 10/27/18 21:00 1. Will remain on suicide precautions. In Paper Clothes 2. Will remain in room under direct supervision of one-on-one staff at all times provided by [employer]; [employer], RANDOLPH pitch worker. 3. May have paper cups, plates, finger foods. 4. Follow [facility] Management of the Admitted Behavioral Health Patient policy. 5. Comfort bath system only. 6. No personal belongings. 7. No visitors at this time. 9. Bathroom privileges: escort to bathroom at RN discretion. 10. No Phone at this time. 11. Will remain in the ED as there are no beds available at this time. Powerplant Operator will determine transfer to /S based on bed availability and staffing. 12. Due to INVOLUNTARY status, the patient must remain in the hospital. Second Certification will be scheduled with [facility]. [facility] Frontline Bellstand Attendant will continue seeking placement. Please contact the Flexo Press Operator Business Development Director ([phone]) and [facility] Bellstand Attendant ([phone]) for any needed changes in the Safety Plan. Safety plan has been provided to interdepartmental care team including Clinical Coordinator, Nursing Student Success Advisor
--- NOTE | 2018-10-28 15:40 | CMPROGNOTE_ITS ---
Care Management Progress Note 10/27-Russell's girlfriend Grisel came in today to see Russell. Russell's behavior was a little elevated while she was here. Nimesh along with nursing had a discussion with Grisel and she was in agreement for Russell to have no visitors. Discussion with BETY Alvarado Nursing Reefer Truck Driver and he is in agreement with the change in the safety plan to reflect no visitors. That is the only change in the plan. Discussion with Dr. Valles who is in agreement with the change in plan. Glenn has called hospitals again. [facility] Russell. [facility] has declined. The state has not notified [facility] yet of the time for the second cert. New safety plan was written and distributed according to policy. INVOLUNTARY FOR INPATIENT PSYCHIATRIC STABILIZATION. EE completed and he is now on involuntary status. High risk for elopement and high risk for impulsive, aggressive behaviors. Russell is unpredictable in terms of his response at this time and cannot agree to inpatient psychiatric treatment but is at risk for harming himself and others. Safety plan has been established with patient, and care team, to adhere to patient goals, identify restrictions based on behavioral status, address nutrition, and determine allowed personal belongings, tools for hygiene and personal care. Determine level of activity including ambulation, level of supervision, visitors, and determine privileges based on behaviors and level of engagement by patient; please note safety plan below. SAFETY PLAN: ED Room #5 10/27/18 21:00 1. Will remain on suicide precautions. In Paper Clothes 2. Will remain in room under direct supervision of one-on-one staff at all times provided by [employer]O; LEA, RANDOLPH orthopedically impaired teacher. 3. May have paper cups, plates, finger foods. 4. Follow [facility] Management of the Admitted Behavioral Health Patient policy. 5. Comfort bath system only. 6. No personal belongings. 7. No visitors at this time. 9. Bathroom privileges: escort to bathroom at RN discretion. 10. No Phone at this time. 11. Will remain in the ED as there are no beds available at this time. Food Order Delivery Runner will determine transfer to /S based on bed availability and staffing. 12. Due to INVOLUNTARY status, the patient must remain in the hospital. Second Certification will be scheduled with [facility]. [facility] Frontline Blocker Hand will continue seeking placement. Please contact the Catalytic Case Operator Third Mate ([phone]) and [facility] Blocker Hand ([phone]) for any needed changes in the Safety Plan. Safety plan has been provided to interdepartmental care team including Clinical Coordinator, Nursing Reefer Truck Driver
--- NOTE | 2018-10-28 15:41 | PDOC.MHCN ---
Date of service: 10/28/18 Time of Service: 15:41 Mental Health Crisis Note Presenting Issue How did you arrive at the ED and why did you come: Russell has been on an application for involuntary treatment since yesterday. Precipitating Factors Russell presented with homicidal ideation that seems to relate to delusional thought. He has medical concerns and feels certain healthcare providers and/or law enforcement officers are interfering with his healthcare. He has a gun on his property and has become increasingly paranoid while at his home. He has been manic for approximately six weeks and has been followed by [facility] for support with the outpatient appointments scheduled. He was unable to make all these appointments and continues to have elevated anxiety that has exasperated the genny to level that seems to have led to psychoses. Disposition BEHAVIOR: slightly agitated/needs haldol injections and ativan to contain him. He is still having pressured speech and expresses frustration with services and his treatment EYE CONTACT: fair MOOD: elevated AFFECT: irritable, sullen APPETITE: fair, but not eating full meals SLEEP(trouble falling/staying asleep: Off of medication poor/has responded well to medication given so far Plan Russell will remain on involuntary status for placement at [facility]. [facility] does not have available beds. [facility] is full, [facility] is full, and [facility] reports is cannot accommodate an involuntary on its unit. 12 hour bed checks will continue to occur with NK and 2nd certification will happen tonight. Signature Clinician's Name/Title: Glenn Daly MA [facility]
--- NOTE | 2018-10-28 16:00 | PDOC.MHCN_ITS ---
Date of service: 10/28/18 Time of Service: 15:41 Mental Health Crisis Note Presenting Issue How did you arrive at the ED and why did you come: Russell has been on an application for involuntary treatment since yesterday. Precipitating Factors Russell presented with homicidal ideation that seems to relate to delusional thought. He has medical concerns and feels certain healthcare providers and/or law enforcement officers are interfering with his healthcare. He has a gun on his property and has become increasingly paranoid while at his home. He has been manic for approximately six weeks and has been followed by [facility] for support with the outpatient appointments scheduled. He was unable to make all these appointments and continues to have elevated anxiety that has exasperated the genny to level that seems to have led to psychoses. Disposition BEHAVIOR: slightly agitated/needs haldol injections and ativan to contain him. He is still having pressured speech and expresses frustration with services and his treatment EYE CONTACT: fair MOOD: elevated AFFECT: irritable, sullen APPETITE: fair, but not eating full meals SLEEP(trouble falling/staying asleep: Off of medication poor/has responded well to medication given so far Plan Russell will remain on involuntary status for placement at [facility]. [facility] does not have available beds. [facility] is full, [facility] is full, and [facility] reports is cannot accommodate an involuntary on its unit. 12 hour bed checks will continue to occur with [facility] and 2nd certification will happen tonight. Signature Clinician's Name/Title: Glenn Daly MA [facility]
--- NOTE | 2018-10-28 18:18 | PDOC.ERCMPRO ---
Care Management Progress Note S/O: Russell was sitting up in his chair and his dinner was in front of him but he had only taken one bite. He was speaking in a very soft voice but was rapidly mumbling something that could not be understood. His last dose of Haldol and Ativan was last evening at 10pm. When asked to stop talking he seems unable to follow that direction but will accept a glass of cold soda and take a drink when asked. Second Certification interview completed by [facility] Psychiatrist, Dr. Regina Rodriguez. Russell was not able to respond to her questions in a coherent manner. Russell was animated with his hands and finger pointing along with rapid garbled speech. It has been determined by the Psychiatrist that Russell will remain on Involuntary status. A: 63 yo male remains on hold awaiting placement for inpatient psychiatric treatment. He is on Involuntary status confirmed by Dr. Rodriguez following completion of the second certification. P: Involuntary status. No change to the Safety plan. [facility], Glenn Darlenelewis, will confirm his acceptance at [facility] for Inpatient Psychiatric Admission to that facility in the morning. Safe transportation will be arranged through the Analytical Research Program Manager's Office if he is accepted. There is no change to the Safety Plan at this time.
--- NOTE | 2018-10-28 18:29 | CMPROGNOTE_ITS ---
Care Management Progress Note S/O: Russell was sitting up in his chair and his dinner was in front of him but he had only taken one bite. He was speaking in a very soft voice but was rapidly mumbling something that could not be understood. His last dose of Haldol and Ativan was last evening at 10pm. When asked to stop talking he seems unable to follow that direction but will accept a glass of cold soda and take a drink when asked. Second Certification interview completed by [facility] Psychiatrist, Dr. Regina Rodriguez. Russell was not able to respond to her questions in a coherent manner. Russell was animated with his hands and finger pointing along with rapid garbled speech. It has been determined by the Psychiatrist that Russell will remain on Involuntary status. A: 63 yo male remains on hold awaiting placement for inpatient psychiatric treatment. He is on Involuntary status confirmed by Dr. Rodriguez following completion of the second certification. P: Involuntary status. No change to the Safety plan. [facility], Glenn Darlenelewis, will confirm his acceptance at [facility] for Inpatient Psychiatric Admission to that facility in the morning. Safe transportation will be arranged through the Wire Drawer's Office if he is accepted. There is no change to the Safety Plan at this time.
--- NOTE | 2018-10-28 19:44 | NUR.NOTE ---
Nursing Note: Patient in room, continues to mumble nonstop nonsensically. Given dinner which pt ate about 25% of. Patient transferred to Med/Surg. Requires encouragement to complete tasks such as transferring to wheelchair. S/O Grisel was given an update on patient and that he will be spending tonight here at the hospital.
--- NOTE | 2018-10-28 20:18 | HPE_ITS ---
Date of service: 10/28/18 Time of Service: 20:17 Assessment and Plan (1) Genny: Current visit: Yes Status: Acute admission under observation while awaiting transfer to psychiatric hospital. use of benzodiazepines to control agitation History of Present Illness Chief Complaint: manic behavior, homicidal ideation Narrative: Information obtained from ER and mental health worker's notes. Patient is currently incoherent from his acute genny behavior. Patient was brought by police to the ER for evaluation of manic behavior, homicidal and suicidal ideation. 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 According to his girlfriend he has been rambling on with nonsensical statements and irrational beliefs. Initially in the emergency room he was belligerent and required Haldol and Ativan to calm him down. He was felt to be incapacitated by his misperception of reality to the degree that he was unable to make an informed decision about his need for acute psychiatric treatment. He was admitted under an emergency evaluation by the emergency personnel including Dr. Agus Joyce and Dr. Christiano Skelton and Dr. Chasity Valles and he underwent a second psychiatric evaluation by Dr. Regina Rodriguez who deemed his involuntary psychiatric admission necessary. Mental health workers from [facility] have made referrals to multiple hospitals including [facility], [facility], [facility], [place] and [facility]. All are full and unable to accept a referral at this time or are no longer taking involuntary psychiatric admissions. However, [facility] has reviewed his case and according to the mental health workers notes has considered accepting him conditional upon availability of a bed. At present the patient is not physcially threatening to the hospital staff but remains agitated, rambling incoherently. Review of Systems Review of Systems Unobtainable due to mental status [facility] Medical History Cancer determined by biopsy of tongue (Acute) Diarrhea (Acute) Weight loss (Acute) Back pain (Chronic) Hepatitis C (Chronic) PTSD (post-traumatic stress disorder) (Chronic) PTSD (post-traumatic stress disorder) (Chronic) Back fracture (Resolved) Surgical History History of surgery on extremity (Resolved) Social History Smoking/Tobacco Use Status: Current every day Tobacco Type: cigarettes Alcohol Intake: never Drug use: Never Substance use type: does not use Do you feel safe at home: Yes Do you feel safe in your relationship?: Yes Meds Home Medications Medication Instructions Recorded Confirmed Type ibuprofen 600 mg PO DAILY 09/17/18 10/27/18 History lorazepam [Ativan] 1 mg PO TID 09/17/18 10/27/18 History Allergies Allergy/AdvReac Type Severity Reaction Status Date / Time No Known Allergies Allergy Unverified 10/27/18 20:49 Exam Narrative Exam Narrative: limited exam due to his agitated state Resp Effort & Inspection: normal respiratory effort Auscultation: clear to auscultation bilaterally Cardio Jugular venous pressure: no JVD Palpation: normal PMI Rate: tachycardic Rhythm: regular rhythm Heart Sounds: S1 normal, S2 normal, normal, physiologic split S2 and no murmurs GI Inspection: scaphoid Palpation: soft Percussion: normal to percussion Auscultation: normal bowel sounds Extrem General: normal to inspection, full ROM, no pedal edema and no calf tenderness Psych Appearance: disheveled Mental Status: other (grossly incapacitated, talking incoherently, animated waving his arms) Speech and Movement: agitated, pressured speech and restless Mood: labile mood and other (grossly incapacitated, talking incoherently, animated waving his arms) Affect: animated, anxious affect and dysphoric affect Attitude: guarded Thought Process: other (unable to assess as we can not communicate in his current state) Thought Content: other (unable to assess) Insight: other (unable to assess) Judgment: other (unable to assess) Results Labs : 10/27/18 19:00 10/27/18 19:00 Laboratory Results - last 24 hr 10/28/18 10/28/18 00:50 00:50 Urine Color Yellow Urine Clarity Clear Urine pH 6.0 Ur Specific [place] Level 1.025 Urine Protein Negative Urine Ketones 15 H Urine Blood Negative Urine Nitrite Negative Urine Bilirubin Negative Urine Urobilinogen 0.2 Ur Leukocyte Esterase Negative Urine Glucose Negative Urine Opiates Screen Negative Urine Methadone Screen Negative Ur Barbiturates Screen Negative Ur Tricyclics Screen Negative Ur Amphetamines Screen Negative U Benzodiazepines Scrn Positive Urine Cocaine Screen Negative Ur THC Screen Positive Last Vital Signs Temp 37.2 C 10/28/18 19:10 Pulse 113 H 10/28/18 19:10 Resp 24 10/28/18 19:10 BP 130/86 10/28/18 19:10 Pulse Ox 97 10/28/18 19:10
--- NOTE | 2018-10-28 22:16 | NUR.NOTE ---
Patient was admitted to the Med/Surg unit from the ER. He is known mental health disease patient. He presented to the floor very poor historian due to the fact that he is only doing rambling and garbling continously, he is agitated and restless. He keeps trying to get his words out by rambling. His lips are very dry the cadre and myself keeps trying to encourage him to drink same is unsuccessful so far.
[2018-10-28] MEDS: LORazepam 2 MG/ML VIAL 1 MG IM (22:30)
--- NOTE | 2018-10-28 22:52 | NUR.NOTE ---
Patient was assessed by Dr. Breen due to the fact patient is restless, agitated, pacing and menacing also gesticulating, rambling and garbling, visual and auditory hallucinations was also noted. Lorazepam 1mg was ordered IM Stat.
[2018-10-29 07:30] VITALS: BP 119/79; PULSE 96; RESP 18; TEMP 36.8; O2SAT 95
[2018-10-29 07:36] LABS: Magnesium 2.1 mg/dL (1.8-2.4); Potassium 3.2 mmol/L (3.5-5.1)
--- NOTE | 2018-10-29 08:45 | W.INMHPGNOTE ---
Date of service: 10/29/18 Time of Service: 08:46 Mental Health Crisis Note Presenting Issue How did you arrive at the ED and why did you come: Russell has been at [facility] for two nights as a result of a warrant for immediate evaluation due to genny and psychoses. Precipitating Factors Russell denies that he is in a current state of suicidal or homicidal ideation, planning, intent, or attempts. However, he remains manic with elevated to disorganized thought process. His speech continues to be jumbled, but he speaks with hand gestures and points at people. He does not have any insight into symptoms of genny. From this, he rambles in jumbled speech patterns making it difficult to understand what he is saying. He remains cooperative with treatment recommendations given, took Ativan last night and was able to deescalate. However, when asked open ended questions about his mental status, he rambles and continues to blame external factors. Some of these factors may be delusional. Disposition BEHAVIOR: cooperative and able to be redirected EYE CONTACT: good MOOD: anxious to slightly elevated AFFECT: disheveled, restless, animated, pressured speech APPETITE: fair SLEEP(trouble falling/staying asleep: poor Plan Continue to hold at [facility] on involuntary treatment status. 2nd certification by a psychiatrist was completed last night indicating Russell is in need of treatment at this time. The [place], [facility], and [facility] have all been creating a file on Russell and working toward admission. [facility] and [facility] continue to be full and/or unable to admit from outside sources. Signature Clinician's Name/Title: Glenn Daly MA [facility]
[2018-10-29 08:52] VITALS: BP 130/78; PULSE 102; RESP 20; TEMP 36.4; O2SAT 96
--- NOTE | 2018-10-29 09:01 | MHPN_ITS ---
Date of service: 10/29/18 Time of Service: 08:46 Mental Health Crisis Note Presenting Issue How did you arrive at the ED and why did you come: Russell has been at [facility] for two nights as a result of a warrant for immediate evaluation due to genny and psychoses. Precipitating Factors Russell denies that he is in a current state of suicidal or homicidal ideation, planning, intent, or attempts. However, he remains manic with elevated to disorganized thought process. His speech continues to be jumbled, but he speaks with hand gestures and points at people. He does not have any insight into symptoms of genny. From this, he rambles in jumbled speech patterns making it difficult to understand what he is saying. He remains cooperative with treatment recommendations given, took Ativan last night and was able to deescalate. However, when asked open ended questions about his mental status, he rambles and continues to blame external factors. Some of these factors may be delusional. Disposition BEHAVIOR: cooperative and able to be redirected EYE CONTACT: good MOOD: anxious to slightly elevated AFFECT: disheveled, restless, animated, pressured speech APPETITE: fair SLEEP(trouble falling/staying asleep: poor Plan Continue to hold at [facility] on involuntary treatment status. 2nd certification by a psychiatrist was completed last night indicating Russell is in need of treatment at this time. The [place], [facility], and [facility] have all been creating a file on Russell and working toward admission. [facility] and [facility] continue to be full and/or unable to admit from outside sources. Signature Clinician's Name/Title: Glenn Daly MA [facility]
--- NOTE | 2018-10-29 09:48 | CHAPLAIN ---
Russell's significant other, Grisel, stopped in my office yesterday. When I asked if I could be of help, she said she didn't know, but agreed to come in for a conversation. She told me about her fiance being in the ER and that police had arrived at their home, handcuffed him and brought him to the ER. She had visited Russell and then told him he would be leaving for 10 minutes and then returning. When she left the ER, she said nurses asked her not to return because Russell's behavior escalated while she was there. Grisel felt badly about not getting to explain to Russell why she wouldn't be returning. She is concerned for his physical health, telling me that Russell has lost a significant amount of weight recently. Grisel didn't identify any supports for herself. She said she used to attend a [employer], but hasn't for a while. She is interested in finding a caodaism to attend in [facility]. I prayed with Grisel and she said she would be returning home. I encouraged her to call me and also gave her the main hospital number in case she wanted to call the ER and check on Russell.
[2018-10-29] MEDS: LORazepam 1 MG TAB PO ×2 (09:49→14:00)
--- NOTE | 2018-10-29 12:06 | W.PM.DS.N ---
Date of service: 10/29/18 Time of Service: 12:06 DS: Diagnosis Discharge Diagnosis (1) Melyssa: Status: Acute Discharge Plan Disposition [facility] Dis[facility]: [facility] [place] Condition: Stable Discharge Details Reason For Visit: ACUTE PSYCHOTIC EPISODE, SUICIDAL AND HOMICIDAL ID Admit Date/Time: 10/28/18 18:21 Admit Provider: Nik Perea Attending Provider: Nik Perea Primary Care Provider: Jairo Conn Hospital Course Hospital Course: 63 year old man admitted overnight under involuntary psychiatric admission with a diagnosis of acute manic behavior, and has undergone his second psychiatric evaluation and deemed appropriate for involuntary admission. The patient was maintained with a 1:1 Cadre overnight, with PO and IM Benzodiazepine used to control symptoms. He has been accepted in transfer to the [facility]. He is being transferred in stable condition. Please refer to admission H&P from Dr. Perea (10/28/2018) for further details. Home Meds and New Rx's Prescriptions: Continued lorazepam [Ativan] 1 mg Tablet 1 mg PO TID RF: 0 ibuprofen 600 mg Tablet 600 mg PO DAILY RF: 0 Discharge Instructions Activity:: Activity as Tolerated Equipment/Supplies:: No Equipment Needed Diet:: As Tolerated Discharge Orders Discharge Orders: Discharge Order (Routine); Ordered 10/29/18 Ordered By: Suleiman Chambers DS: Data Vitals/I&O Vitals and I&O: Vital Signs Temperature 36.4 C L 10/29/18 08:52 Temperature Source Tympanic 10/29/18 08:52 Pulse 102 H 10/29/18 08:52 Pulse Rhythm Regular 10/29/18 09:00 Pulse Strength Normal 10/28/18 02:30 Respiratory Rate 20 10/29/18 08:52 Respiratory Effort Non-Labored 10/29/18 09:00 Respiratory Depth Normal 10/29/18 09:00 Respiratory Pattern Normal 10/29/18 09:00 Blood Pressure 130/78 10/29/18 08:52 Pulse Oximetry 96 10/29/18 08:52 Oxygen Delivery Method Room Air 10/29/18 08:52 Oxygen Flow Rate 0 10/29/18 08:52 Pain Level 0 10/29/18 08:52 Comment 10/27/18 20:46 Intake & Output 10/28/18 10/29/18 10/29/18 23:59 11:59 23:59 Intake Total 680 / 680 Balance 680 / 680 Weight 63.503 kg Intake: Oral 680 / 680 Other: Urine Color Pale Yellow Urine Appearance Clear Urine Odor None Voiding Methods Toilet Labs on day of discharge: Labs from last 24 hours 10/29/18 06:37 Potassium 3.2 L Magnesium 2.1 PFSH Medical History Cancer determined by biopsy of tongue (Acute) Diarrhea (Acute) Weight loss (Acute) Back pain (Chronic) Hepatitis C (Chronic) PTSD (post-traumatic stress disorder) (Chronic) PTSD (post-traumatic stress disorder) (Chronic) Back fracture (Resolved) Surgical History History of surgery on extremity (Resolved) Social History Smoking/Tobacco Use Status: Current every day Tobacco Type: cigarettes Alcohol Intake: never Drug use: Never Substance use type: does not use Do you feel safe at home: Yes Do you feel safe in your relationship?: Yes
--- NOTE | 2018-10-29 12:11 | DSE_ITS ---
Date of service: 10/29/18 Time of Service: 12:06 DS: Diagnosis Discharge Diagnosis (1) Melyssa: Status: Acute Discharge Plan Disposition Patient Disposition: [facility] [place] Condition: Stable Discharge Details Reason For Visit: ACUTE PSYCHOTIC EPISODE, SUICIDAL AND HOMICIDAL ID Admit Date/Time: 10/28/18 18:21 Admit Provider: Nik Perea Attending Provider: Nik Perea Primary Care Provider: Jairo Conn Hospital Course Hospital Course: 63 year old man admitted overnight under involuntary psychiatric admission with a diagnosis of acute manic behavior, and has undergone his second psychiatric evaluation and deemed appropriate for involuntary admission. The patient was maintained with a 1:1 Cadre overnight, with PO and IM Benzodiazepine used to control symptoms. He has been accepted in transfer to the [facility]. He is being transferred in stable condition. Please refer to admission H&P from Dr. Perea (10/28/2018) for further details. Home Meds and New Rx's Prescriptions: Continued lorazepam [Ativan] 1 mg Tablet 1 mg PO TID RF: 0 ibuprofen 600 mg Tablet 600 mg PO DAILY RF: 0 Discharge Instructions Activity:: Activity as Tolerated Equipment/Supplies:: No Equipment Needed Diet:: As Tolerated Discharge Orders Discharge Orders: Discharge Order (Routine); Ordered 10/29/18 Ordered By: Suleiman Chambers DS: Data Vitals/I&O Vitals and I&O: Vital Signs Temperature 36.4 C L 10/29/18 08:52 Temperature Source Tympanic 10/29/18 08:52 Pulse 102 H 10/29/18 08:52 Pulse Rhythm Regular 10/29/18 09:00 Pulse Strength Normal 10/28/18 02:30 Respiratory Rate 20 10/29/18 08:52 Respiratory Effort Non-Labored 10/29/18 09:00 Respiratory Depth Normal 10/29/18 09:00 Respiratory Pattern Normal 10/29/18 09:00 Blood Pressure 130/78 10/29/18 08:52 Pulse Oximetry 96 10/29/18 08:52 Oxygen Delivery Method Room Air 10/29/18 08:52 Oxygen Flow Rate 0 10/29/18 08:52 Pain Level 0 10/29/18 08:52 Comment 10/27/18 20:46 Intake & Output 10/28/18 10/29/18 10/29/18 23:59 11:59 23:59 Intake Total 680 / 680 Balance 680 / 680 Weight 63.503 kg Intake: Oral 680 / 680 Other: Urine Color Pale Yellow Urine Appearance Clear Urine Odor None Voiding Methods Toilet Labs on day of discharge: Labs from last 24 hours 10/29/18 06:37 Potassium 3.2 L Magnesium 2.1 PFSH Medical History Cancer determined by biopsy of tongue (Acute) Diarrhea (Acute) Weight loss (Acute) Back pain (Chronic) Hepatitis C (Chronic) PTSD (post-traumatic stress disorder) (Chronic) PTSD (post-traumatic stress disorder) (Chronic) Back fracture (Resolved) Surgical History History of surgery on extremity (Resolved) Social History Smoking/Tobacco Use Status: Current every day Tobacco Type: cigarettes Alcohol Intake: never Drug use: Never Substance use type: does not use Do you feel safe at home: Yes Do you feel safe in your relationship?: Yes
--- NOTE | 2018-10-29 14:54 | NUR.NOTE ---
Nursing Note: [id number]: report called to [place] psych unit, spoke with Ced. all questions answered.
--- NOTE | 2018-10-29 18:52 | PDOC.CMDIS ---
- If Service Date Differs Date of service: 10/29/18 Time of Service: 13:00 Care Management Discharge Reason for Hospitalization: Psychiatric stablization Discharge Plan: Russell is not able to particpate in discharge assessment. He remains EE status and will transfered to [place] for psychiatric stabelization coordinated by mental health. CM met with Russell and explained the transition his words are random and repetive he did receive ativan to treat symptoms of anxiety. He was able to leave [facility] with [facility]ian escort at time of discharge. His SO was updated with discharge plan. - MH Services (Omit if N/A) Current MH Services: Psychiatric Inp
--- NOTE | 2018-10-29 19:01 | CMDISCH_ITS ---
- If Service Date Differs Date of service: 10/29/18 Time of Service: 13:00 Care Management Discharge Reason for Hospitalization: Psychiatric stablization Discharge Plan: Russell is not able to particpate in discharge assessment. He remains EE status and will transfered to [place] for psychiatric stabelization coordinated by mental health. CM met with Russell and explained the transition his words are random and repetive he did receive ativan to treat symptoms of anxiety. He was able to leave [facility] with tian escort at time of discharge. His SO was updated with discharge plan. - MH Services (Omit if N/A) Current MH Services: Psychiatric Inp
== END 2018-10-29 14:40 | disposition short-term general hospital (02) ==
LOC: ER 10-28 18:31 → MS 10-28 19:41
PROVIDERS: Student in an Organized Health Care Education/Training Program; Admitting Provider Internal Medicine; Emergency Provider Physician Assistant; PCP General Practice; Visit Provider Internal Medicine
DX: F30.2 Manic episode, severe with psychotic symptoms (principal); R19.7 Diarrhea, unspecified; G47.00 Insomnia, unspecified; R63.4 Abnormal weight loss; R45.850 Homicidal ideations; R45.851 Suicidal ideations; F43.12 Post-traumatic stress disorder, chronic; C02.9 Malignant neoplasm of tongue, unspecified; R45.1 Restlessness and agitation; F17.210 Nicotine dependence, cigarettes, uncomplicated; Z75.1 Person awaiting admission to adequate facility elsewhere
CPT/HCPCS: 36415; 80053; 80307; 82805; 96374; 99238; 99285; 80320; 80329; 81003; 82140; 83735; 84132; 84443; 85025; 99217; 99284; G0378; J1630; J2060

== ENCOUNTER 2019-07-21 20:57 | Emergency (ER) | payer MEDICARE, MEDICAID, SELFPAY ==
--- NOTE | 2019-07-21 21:07 | ED.GENADUL_ITS ---
Discharge Plan Disposition Patient Disposition: HOME Condition: Stable Discharge Details Chief Complaint: AMS/LOC Clinical Impression: Syncope Primary Care Provider: None,None ED Provider: Caesar Otoole Home Meds and New Rx's Prescriptions: Continued lorazepam [Ativan] 1 mg Tablet 1 mg PO TID RF: 0 ibuprofen 600 mg Tablet 600 mg PO DAILY RF: 0 Discharge Instructions Instructions: Syncope (ED) Additional Instructions: follow up with your primary care provider as soon as possible if you feel weakness, chest pain/pressure, difficulty breathing or feel more ill return to the emergency department Medical Decision Making 64 yo male with prior history of genny who comes in after he passed out. Per EMS report he was with his girlfriend acting normal. The girlfriend fell and hurt her wrist and she called for him to come look at his hand. He came out of his room started to look at the hand and then per report looked at the ceiling for a minute then collapsed and was unresponsive for about 6 minutes. No reported seizure like activity but awoke confused and had had slurred speech. EMS arrived and noted slurred speech and left hand weakness. On arrival to the ED he is caox4 but does have slurred speech, no weakness on my exam or facial droop, NIH of 2 on arrival. Will obtain lab work and CT head. Could be cva vs tia vs syncope vs seizure. Pt evaluated after CT and now has clear speech and NIH now 0, no weakness or deficits. Will continue to monitor. labs and imaging unremarkable. Patient is caox4 and has capacity to make his own decisions and is declining admission at this time, understands risks of missing diagnoses such as cva vs arrythmia including and permanent disability and is willing to accept these risks. He is leaving against my medical advise. HE understands he can return at any time if he changes his mind and also strongly recommended if he doesn't return that he should f/u with his pcp DOUGLAS Differential Diagnosis Differential Diagnosis: seizure, cva, syncope Medical Records Medical records reviewed: Yes I reviewed the patient's medical records. Imaging Data Radiologic Study: Attestation: I personally reviewed and interpreted this imaging study as follows: Imaging: CT Scan Radiologist's impression: no acute findings Lab Data Lab results reviewed: Yes I reviewed the patient's lab results. ECG Data Attestation: I personally reviewed and interpreted this ECG (s) as follows: Prior ECG tracings: not available for review Interpretation: sinus tachycardia, rate of 102, pr 166, qtc 458 HPI General Mode of arrival: EMS . Date/Time Provider Initiated Documentation: 07/21/19 21:05 . Limitations to Documentation: no limitations . Information obtained by: patient and EMS . History of Present Illness 64 year old M presents to the emergency department with the chief complaint of collapse, altered mental status, described as moderate, Patient started experiencing this hour(s) (1) and it has been other (improving). No relieving factors improve symptom(s), No exacerbating factors reported . Patient did receive the following treatments prior to arrival, none Related Data Home Medications Medication Instructions Recorded Confirmed ibuprofen 600 mg PO DAILY 09/17/18 07/21/19 lorazepam [Ativan] 1 mg PO TID 09/17/18 07/21/19 Allergies Allergy/AdvReac Type Severity Reaction Status Date / Time No Known Allergies Allergy Unverified 07/21/19 21:23 General MONISHA: 2 Review of Systems All systems reviewed & are unremarkable except as noted in HPI and below Constitutional Constitutional: Denies chills and Denies fever(s) Cardiovascular Cardiovascular: Denies chest pain and Denies dyspnea Respiratory Respiratory: Denies cough and Denies dyspnea Gastrointestinal Gastrointestinal: Denies abdominal pain, Denies nausea and Denies vomiting Musculoskeletal Musculoskeletal: Denies joint swelling Integumentary/Breasts Skin/Breast: Denies rash Psychiatric Psychiatric: Denies depression [facility] Social History Smoking/Tobacco Use Status: Current every day Tobacco Type: cigarettes Alcohol Intake: never Drug use: Never Substance use type: does not use Do you feel safe at home: Yes Do you feel safe in your relationship?: Yes Exam Const General: no acute distress Orientation: alert HENMT Head: normal to inspection Ears: external ears normal General nose exam: external nose normal Mouth: moist mucous membranes Eyes General: appearance normal, both eyes and all related structures Neck Neck: normal visual inspection Resp Effort & Inspection: normal respiratory effort and able to speak in complete sentences Cardio Rate: regular rate Skin General skin exam: no rashes or lesions noted Neuro General: alert and oriented x3 Extrem General: normal to inspection Psych Mental Status: mental status grossly normal
[2019-07-21 21:12] LABS: Abs Immature Grans 0.03 k/cumm (0.0-0.09); Absolute Basophil Count 0.04 k/cumm (0.0-0.2); Absolute Eosinophil Count 0.18 k/cumm (0.0-0.7); Absolute Lymphocyte Count 2.59 k/cumm (1.2-3.4); Absolute Monocyte Count 0.64 k/cumm (0.11-0.7); Absolute Neutrophil Count 3.23 k/cumm (1.2-6.7); Basophils % 0.6; Eosinophils % 2.7; HCT 44.4 % (40.0-50.0); Immature Grans % 0.4 %; Lymphocytes % 38.6; Mean Corp. HGB Concentration 33.8 g/dL (32.0-36.0); Mean Corpuscular Hemoglobin 31.4 pg (27.0-33.0); Mean Corpuscular Volume 93.1 fL (80-95); Mean Platelet Volume 9.5 fL (8.0-11.0); Monocytes % 9.5; Neutrophils % 48.2; Platelet Count 281 x1000/uL (130-400); RBC 4.77 m/cumm (4.50-6.00); RBC Distribution Width 13.3 % (11.8-14.1); White Blood Cell Count 6.71 k/cumm (4.4-10.8)
[2019-07-21 21:13] VITALS: BP 149/77; PULSE 106; RESP 16; TEMP 36.7; O2SAT 99
--- NOTE | 2019-07-21 21:15 | DI.CT_ITS ---
EXAM: CT BRAIN NECK CTA CLINICAL HISTORY: stroke symptoms TECHNIQUE: Axial CT angiography was performed with multi-slice acquisition and multi-planar and/or 3 D reconstructions. COMPARISON: CT ABDOMEN PELVIS WO from 09/18/2018 FINDINGS: CT angiography of craniocervical region was performed with intravenous infusion of 85 cc of Omnipaque 350. Preliminary non contrast imaging of the brain shows no evidence of acute intracranial hemorrha ge, mass effect, or midline shift. Visualized lung apices are clear. No cervical mass or adenopathy. Tracheolaryngeal structures appea r intact. The orbital and temporal bone structures appear intact. Paranasal sinuses and mastoid air cells appear clear as visualized. Visualized aortic arch is unremarkable. There is mild atheromatous calcification at the carotid bifu rcation on the left. No significant stenosis of the common internal or external carotid arteries. N o significant stenosis of the vertebral arteries extra cranially. Intracranially, there is luminal diameter narrowing of the left vertebral body of less than 50 percen t of the luminal diameter. Right vertebral and basilar artery appear intact. No aneurysm, stenosis or dissection seen in the region of the [id number] involving internal carotid, basilar, anterio r, middle, or posterior cerebral arteries. Right anterior cerebral artery is supplied mainly across the anterior communicating artery. IMPRESSION: Less than 50 percent luminal diameter stenosis left vertebral artery. No hemodynamically significant stenosis, aneurysm, or dissection in the visualized cervicocranial circulation.
[2019-07-21] MEDS: Normal Saline - Diluent 50 ML VIAL IV (21:17)
[2019-07-21] MEDS: Omnipaque 350 MG/ML 100 ML BTL 85 ML IJ (21:17)
[2019-07-21] MEDS: Normal Saline Flush 10 ML SYR IVP (21:18)
[2019-07-21 21:24] LABS: ALT 57 U/L (16-63); AST 31 U/L (15-37); Albumin 4.4 g/dL (3.4-5.0); Alkaline Phosphatase 140 U/L (46-116); Anion Gap 18.3 mmol/L (3-11); Bilirubin, Total 0.5 mg/dL (0.2-1.0); CO2 21.7 mmol/L (21.0-32.0); CREATININE 1.07 mg/dL (0.70-1.30); Calcium 8.9 mg/dL (8.5-10.1); Chloride 98 mmol/L (98-107); Glucose 98 mg/dL (74-106); Magnesium 2.2 mg/dL (1.8-2.4); Potassium 3.8 mmol/L (3.5-5.1); Sodium 138 mmol/L (136-145)
[2019-07-21 21:25] LABS: Troponin I < 0.05 ng/Ml (<0.06)
[2019-07-21 21:26] LABS: Acetaminophen 10 ug/mL (10-30)
[2019-07-21 21:28] LABS: PTT Activated 23.2 sec (21.0-31.4); Prothrombin Time 10.1 sec (9.3-11.0)
--- NOTE | 2019-07-21 21:28 | DI.VRAD_ITS ---
PROCEDURE INFORMATION: Exam: CT Angiography Head With Contrast Exam date and time: 07/21/2019 9:04 PM Age: 64 years old Clinical indication: Other: Stroke symptoms TECHNIQUE: Imaging protocol: Computed tomography angiography of the head with intravenous contrast. 3D rendering: MIP and/or 3D reconstructed images were created by the technologist. Radiation optimization: All CT scans at this facility use at least one of these dose optimization techniques: automated exposure control; mA and/or kV adjustment per patient size (includes targeted exams where dose is matched to clinical indication); or iterative reconstruction. Contrast material: OMNIPAQUE 350; Contrast volume: 85 ml; Contrast route: IV; COMPARISON: CT HEAD WO 09/18/2018 8:00 AM FINDINGS: Right internal carotid artery: Unremarkable. Intracranial segment is patent with no significant stenosis. No aneurysm. 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 Right anterior cerebral artery otherwise within normal limits without significant stenosis or occlusion. Right middle cerebral artery: Unremarkable. No occlusion or significant stenosis. No aneurysm. Right posterior cerebral artery: Unremarkable. No occlusion or significant stenosis. No aneurysm. Right vertebral artery: Unremarkable. No occlusion or significant stenosis. No aneurysm. Left internal carotid artery: Unremarkable. Intracranial segment is patent with no significant stenosis. No aneurysm. Left anterior cerebral artery: Unremarkable. No occlusion or significant stenosis. No aneurysm. Left middle cerebral artery: Unremarkable. No occlusion or significant stenosis. No aneurysm. Left posterior cerebral artery: Unremarkable. No occlusion or significant stenosis. No aneurysm. Left vertebral artery: Unremarkable. No occlusion or significant stenosis. No aneurysm. Basilar artery: Unremarkable. No occlusion or significant stenosis. No aneurysm. HEAD: Brain: Volume within normal limits for age. No acute intracranial hemorrhage. No edema. Finnegan-white matter differentiation is preserved. Dense calcifications of the pineal gland are noted. Ventricles: No ventriculomegaly. Bones/joints: No acute osseous finding. Sinuses: Paranasal sinuses are well aerated without air-fluid level. Mastoid air cells: Mastoid air cells are clear. IMPRESSION: 1. No acute intracranial finding. 2. No large vessel occlusion. No significant stenosis. PROCEDURE INFORMATION: Exam: CT Angiography Neck With Contrast Exam date and time: 07/21/2019 9:04 PM Age: 64 years old Clinical indication: Other: Stroke symptoms TECHNIQUE: Imaging protocol: Computed tomography angiography of the neck with intravenous contrast. 3D rendering: MIP and/or 3D reconstructed images were created by the technologist. Radiation optimization: All CT scans at this facility use at least one of these dose optimization techniques: automated exposure control; mA and/or kV adjustment per patient size (includes targeted exams where dose is matched to clinical indication); or iterative reconstruction. Contrast material: OMNIPAQUE 350; Contrast volume: 85 ml; Contrast route: IV; COMPARISON: CT HEAD WO 09/18/2018 8:00 AM FINDINGS: VASCULATURE: Right common carotid artery: Unremarkable. No stenosis. No dissection or occlusion. Right internal carotid artery: Unremarkable extracranial segment. No stenosis. No dissection or occlusion. Right external carotid artery: Unremarkable. No occlusion or stenosis of the origin. Right vertebral artery: Unremarkable. No stenosis. No dissection or occlusion. Left common carotid artery: Minimal vascular calcifications of the left common carotid artery. No significant stenosis. No occlusion or dissection. Left internal carotid artery: Mild vascular calcifications of the left internal carotid artery at the carotid bulb, no significant stenosis. No occlusion or dissection. Left external carotid artery: Mild vascular calcifications proximally. No occlusion or stenosis of the origin. Left vertebral artery: Unremarkable. No stenosis. No dissection or occlusion. NECK: Retropharyngeal space: Within normal limits. Thyroid: No mass. Bones/joints: No acute fracture. Soft tissues: Normal. No significant soft tissue swelling. Lymph nodes: No pathologically enlarged lymph nodes. IMPRESSION: 1. Very mild vascular calcifications of the left common and internal carotid arteries without significant stenosis. 2. No occlusion or dissection. COMMENT: Reference per NASCET criteria for degree of stenosis: Mild: less than 50% stenosis. Moderate: 50-69% stenosis. Severe: 70-94% stenosis. Near occlusion: 95-99% stenosis. Dictated and Authenticated by: Marv Chávez MD. Ordering:JONH Maynard MD
[2019-07-21 21:31] LABS: BUN 15 mg/dL (7-18)
[2019-07-21 21:42] LABS: ETHANOL BLOOD < 3.0 mg/dL (<3)
[2019-07-21 22:10] VITALS: BP 130/72; PULSE 101; RESP 16; O2SAT 99
[2019-07-21] MEDS: LORazepam 1 MG TAB PO (22:15)
== END 2019-07-21 22:20 | disposition home or self-care (01) ==
PROVIDERS: Emergency Provider Emergency Medicine
DX: R55 Syncope and collapse (principal); R47.81 Slurred speech; R29.702 NIHSS score 2; Z53.29 Procedure and treatment not carried out because of patient's decision for other reasons
CPT/HCPCS: 36415; 70496; 70498; 80053; 93005; 99285; 80320; 80329; 83735; 84484; 85025; 85610; 85730; 93010; J3490

== ENCOUNTER 2019-09-03 09:32 | Emergency (ER) | payer MEDICARE, MEDICAID, SELFPAY ==
[2019-09-03 09:30] VITALS: TEMP 37.1
--- NOTE | 2019-09-03 09:38 | ED.GENADUL_ITS ---
Discharge Plan Disposition Patient Disposition: HOME Condition: Stable Discharge Details Chief Complaint: AMS/LOC Clinical Impression: Urinary tract infection, Manic behavior Primary Care Provider: None,None ED Provider: Sajan Odom Home Meds and New Rx's Prescriptions: New cephalexin 500 mg capsule 500 mg PO TID 5 Days Qty: 15 RF: 0 haloperidol 5 mg tablet 5 mg PO BID Qty: 30 RF: 0 benztropine 0.5 mg tablet 0.5 mg PO BID 15 Days Qty: 30 RF: 0 No Action lorazepam [Ativan] 1 mg Tablet 1 mg PO TID RF: 0 ibuprofen 600 mg Tablet 600 mg PO DAILY RF: 0 Discharge Instructions Instructions: Urinary Tract Infection in Men (ED) Additional Instructions: We will make you a follow-up appointment at the [facility]. Continue your haloperidol 5 mg twice a day as well as benztropine 0.5 mg twice a day. You may resume these medicines this evening I recommend you avoid use of marijuana. Take the antibiotic Keflex as prescribed for urinary tract infection. May follow-up with [facility] human services for any acute concern or thought disorder. The office number is [phone]. Return to the ER for any emergent concern. Medical Decision Making 64-year-old male who was reported to be verbally approaching strangers on the street with yarsani ideation, police were called, subsequently patient was brought by EMS. He has notable history of PTSD, previous delusional thoughts and genny as well as historical noncompliance with medications. There was no report of trauma or physical altercation. He arrives to the ER with reassuring vital signs, pressured speech, with hyperreligiosity and flight of ideas. Temp is 37, blood pressure 130/72, the patient is quite animated and his pulse is approximately 100. Review of records reveals previous good response to IM Haldol and Ativan. The patient did agree to take the medication in his right buttock. He subsequently was given oral medication as well. A patient director of safety and security was ordered to bedside. I spoke with the patient's Jessica who states that he has not been taking his prescribed Haldol for approximately 2 months. States over the past 3 to 4 weeks has had increasingly bizarre behavior and over the past few days has been ranting with flight of ideas. He left the house this morning at 830 and did not tell her where he was headed. Screening medical evaluation performed including laboratory analysis. Patient does have mild elevation of his LFTs with AST 64, ALT 104 similar to previous. Chemistries otherwise reassuring. Alcohol negative, CBC within normal limits. He does have evidence of trace urinary tract infection. I will treat him with a course of antibiotics. Patient ate a meal, subsequently had a nap. He became more oriented and appropriate, without further flight of ideas, no thoughts of harming himself or others. He was interviewed by automobile body worker and is not a danger to himself or others. I obtained and reviewed records from the [facility] which do detail daily medications including Haldol 5 mg twice a day as well as benztropine 0.5 mg twice a day. Patient's states they do have available medications at home. I will have him restart these. Lab Data Lab results reviewed: Yes I reviewed the patient's lab results. Labs: 09/03/19 12:40 Urine - Reflex from Ua Urine Culture - Pending Laboratory Tests Range/Units 09/03/19 09/03/19 09/03/19 10:34 10:34 12:40 WBC (4.4-10.8) k/cumm 5.83 RBC (4.50-6.00) m/cumm 4.44 L Hgb (13.5-17.5) g/dL 14.1 Hct (40.0-50.0) % 41.4 MCV (80-95) fL 93.2 MCH (27.0-33.0) pg 31.8 MCHC (32.0-36.0) g/dL 34.1 RDW (11.8-14.1) % 12.5 Plt Count (130-400) x1000/uL 203 MPV (8.0-11.0) fL 9.8 Immature Gran % % 0.2 Neutrophils % 82.3 Lymphocytes % 9.3 Monocytes % 7.4 Eosinophils % 0.3 Basophils % 0.5 Absolute Neutrophils (1.2-6.7) k/cumm 4.80 Absolute Lymphocytes (1.2-3.4) k/cumm 0.54 L Absolute Monocytes (0.11-0.7) k/cumm 0.43 Absolute Eosinophils (0.0-0.7) k/cumm 0.02 Absolute Basophils (0.0-0.2) k/cumm 0.03 Sodium (136-145) mmol/L 137 Potassium (3.5-5.1) mmol/L 3.7 Chloride (98-107) mmol/L 100 Carbon Dioxide (21.0-32.0) mmol/L 25.9 Anion Gap (3-11) mmol/L 11.1 H BUN (7-18) mg/dL 13 Creatinine (0.70-1.30) mg/dL 0.69 L Estimated GFR/1.73 m2 (mL/min/1.73m2) >= 60.00 Glucose (74-106) mg/dL 163 H Calcium (8.5-10.1) mg/dL 8.4 L Total Bilirubin (0.2-1.0) mg/dL 1.0 AST (15-37) U/L 64 H ALT (16-63) U/L 104 H Alkaline Phosphatase (46-116) U/L 86 Total Protein (6.4-8.2) g/dL 7.3 Albumin (3.4-5.0) g/dL 4.1 TSH (0.36-3.74) uIU/mL 0.40 Urine Color (Yellow) Urine Clarity (Clear) Urine pH (5-8) Ur Specific Scribner (1.005-1.025) Urine Protein (Negative) mg/dL Urine Ketones (Negative) mg/dL Urine Blood (Negative) Urine Nitrite (Negative) Urine Bilirubin (Negative) Urine Urobilinogen (Up TO 0.2) EU/dL Ur Leukocyte Esterase (Negative) Urine RBC (0-2) HPF Urine WBC (0-5) HPF Ur Epithelial Cells (Negative) HPF Urine Crystals (Negative) HPF Urine Bacteria (Negative) HPF Urine Casts (Negative) LPF Urine Mucus (Negative) Ur Culture Indicated? Urine Glucose (Negative) mg/dL Urine Opiates Screen (Negative) Negative Urine Methadone Screen (Negative) Negative Ur Barbiturates Screen (Negative) Negative Ur Tricyclics Screen (Negative) Negative Ur Amphetamines Screen (Negative) Negative U Benzodiazepines Scrn (Negative) Negative Urine Cocaine Screen (Negative) Negative Ur THC Screen (Negative) Positive A Ethyl Alcohol (<3) mg/dL < 3.0 Range/Units 09/03/19 12:40 WBC (4.4-10.8) k/cumm RBC (4.50-6.00) m/cumm Hgb (13.5-17.5) g/dL Hct (40.0-50.0) % MCV (80-95) fL MCH (27.0-33.0) pg MCHC (32.0-36.0) g/dL RDW (11.8-14.1) % Plt Count (130-400) x1000/uL MPV (8.0-11.0) fL Immature Gran % % Neutrophils % Lymphocytes % Monocytes % Eosinophils % Basophils % Absolute Neutrophils (1.2-6.7) k/cumm Absolute Lymphocytes (1.2-3.4) k/cumm Absolute Monocytes (0.11-0.7) k/cumm Absolute Eosinophils (0.0-0.7) k/cumm Absolute Basophils (0.0-0.2) k/cumm Sodium (136-145) mmol/L Potassium (3.5-5.1) mmol/L Chloride (98-107) mmol/L Carbon Dioxide (21.0-32.0) mmol/L Anion Gap (3-11) mmol/L BUN (7-18) mg/dL Creatinine (0.70-1.30) mg/dL Estimated GFR/1.73 m2 (mL/min/1.73m2) Glucose (74-106) mg/dL Calcium (8.5-10.1) mg/dL Total Bilirubin (0.2-1.0) mg/dL AST (15-37) U/L ALT (16-63) U/L Alkaline Phosphatase (46-116) U/L Total Protein (6.4-8.2) g/dL Albumin (3.4-5.0) g/dL TSH (0.36-3.74) uIU/mL Urine Color (Yellow) Yellow Urine Clarity (Clear) Clear Urine pH (5-8) 6.5 Ur Specific Scribner (1.005-1.025) 1.025 Urine Protein (Negative) mg/dL Negative Urine Ketones (Negative) mg/dL Negative Urine Blood (Negative) Negative Urine Nitrite (Negative) Negative Urine Bilirubin (Negative) Negative Urine Urobilinogen (Up TO 0.2) EU/dL 0.2 Ur Leukocyte Esterase (Negative) Trace H Urine RBC (0-2) HPF Negative Urine WBC (0-5) HPF 5-10 Ur Epithelial Cells (Negative) HPF Rare Urine Crystals (Negative) HPF Negative Urine Bacteria (Negative) HPF Few Urine Casts (Negative) LPF Negative Urine Mucus (Negative) Moderate Ur Culture Indicated? Yes Urine Glucose (Negative) mg/dL 100 Urine Opiates Screen (Negative) Urine Methadone Screen (Negative) Ur Barbiturates Screen (Negative) Ur Tricyclics Screen (Negative) Ur Amphetamines Screen (Negative) U Benzodiazepines Scrn (Negative) Urine Cocaine Screen (Negative) Ur THC Screen (Negative) Ethyl Alcohol (<3) mg/dL HPI General Mode of arrival: EMS . Date/Time Provider Initiated Documentation: 09/03/19 09:33 . Limitations to Documentation: altered mental status . Information obtained by: patient and EMS . History of Present Illness 64 year old M presents to the emergency department with the chief complaint of Altered mental status, talking to bystanders about God, police called EMS, described as moderate and severe, Quality is described as constant, Patient started experiencing this unknown other things that improve symptom(s), (Unknown) Other factors that worsen symptoms (Unknown) . Patient notes other (Patient not compliant with review of systems). Related Data Home Medications Medication Instructions Recorded Confirmed ibuprofen 600 mg PO DAILY 09/17/18 07/21/19 lorazepam [Ativan] 1 mg PO TID 09/17/18 07/21/19 benztropine 0.5 mg PO BID 15 Days #30 tab 09/03/19 cephalexin 500 mg PO TID 5 Days #15 cap 09/03/19 haloperidol 5 mg PO BID #30 tab 09/03/19 Previous Rx's Medication Instructions Recorded benztropine 0.5 mg PO BID 15 Days #30 tab 09/03/19 cephalexin 500 mg PO TID 5 Days #15 cap 09/03/19 haloperidol 5 mg PO BID #30 tab 09/03/19 Allergies Allergy/AdvReac Type Severity Reaction Status Date / Time No Known Allergies Allergy Unverified 07/21/19 21:23 General Stated Complaint: AMS/LOC MONISHA: 2 Review of Systems Unobtainable due to mental status [facility] Medical History Back fracture (Resolved) Back pain (Chronic) Cancer determined by biopsy of tongue (Acute) Diarrhea (Acute) Hepatitis C (Chronic) PTSD (post-traumatic stress disorder) (Chronic) PTSD (post-traumatic stress disorder) (Chronic) Weight loss (Acute) Social History Smoking/Tobacco Use Status: Current every day Tobacco Type: cigarettes Alcohol Intake: never Drug use: Never Substance use type: does not use Do you feel safe at home: Yes Do you feel safe in your relationship?: Yes Exam Narrative Exam Narrative: GEN: awake, alert, flight of ideas with pressured speech HEAD: Normocephalic, atraumatic ENT: Mucous membranes dry, oropharynx unremarkable, External ear exam unremarkable EYES: PERRL, EOMI NECK: Full ROM, no CRISTA, no menigismus CHEST/RESP: Nontender, clear to auscultation bilateral, no wheeze/rhonchi/rales CARDIOVASCULAR: RRR, no murmur, rub regi. 2+ Rad pulse bilateral ABDOMEN: Soft, nontender, no mass. +Bowel sounds EXT: Full ROM, no edema, no rash Neuro: Grossly normal neurologic exam, conversant, interactive. Psych: Speech pressured, flight of ideas, thoughts are not congruent Course Vital Signs Vital signs: Vital Signs Temperature 37.1 C 09/03/19 09:30 Temperature 37.1 C 09/03/19 09:30 Temperature Source Skin 09/03/19 09:30 Oxygen Delivery Method Room Air 09/03/19 09:30 Oxygen Flow Rate 0 09/03/19 09:30
[2019-09-03] MEDS: LORazepam 2 MG/ML VIAL IM (09:45)
[2019-09-03] MEDS: Haloperidol 5 MG/ML VIAL IM (09:45)
[2019-09-03 09:47] VITALS: RESP 16
[2019-09-03] MEDS: Haloperidol 1 MG TAB 2 MG PO (09:58)
[2019-09-03] MEDS: LORazepam 1 MG TAB PO (09:58)
--- NOTE | 2019-09-03 10:04 | NUR.NOTE ---
Nursing Note: Patient gets in this scenario writer's face states I don't need weapons I am the weapon.
--- NOTE | 2019-09-03 10:07 | NUR.NOTE ---
Nursing Note: Patient runs out of room yelling Call my , [phone]. asked carlos Janet to call then Patient returns to room. Patient then runs out again asking to call the latter day.
[2019-09-03 10:43] LABS: Abs Immature Grans 0.01 k/cumm (0.0-0.09); Absolute Basophil Count 0.03 k/cumm (0.0-0.2); Absolute Eosinophil Count 0.02 k/cumm (0.0-0.7); Absolute Lymphocyte Count 0.54 k/cumm (1.2-3.4); Absolute Monocyte Count 0.43 k/cumm (0.11-0.7); Basophils % 0.5; Eosinophils % 0.3; HCT 41.4 % (40.0-50.0); HGB 14.1 g/dL (13.5-17.5); Immature Grans % 0.2 %; Lymphocytes % 9.3; Mean Corp. HGB Concentration 34.1 g/dL (32.0-36.0); Mean Corpuscular Hemoglobin 31.8 pg (27.0-33.0); Mean Corpuscular Volume 93.2 fL (80-95); Mean Platelet Volume 9.8 fL (8.0-11.0); Monocytes % 7.4; Neutrophils % 82.3; Platelet Count 203 x1000/uL (130-400); RBC 4.44 m/cumm (4.50-6.00); RBC Distribution Width 12.5 % (11.8-14.1); White Blood Cell Count 5.83 k/cumm (4.4-10.8)
[2019-09-03 11:05] LABS: ALT 104 U/L (16-63); AST 64 U/L (15-37); Albumin 4.1 g/dL (3.4-5.0); Alkaline Phosphatase 86 U/L (46-116); Anion Gap 11.1 mmol/L (3-11); BUN 13 mg/dL (7-18); CO2 25.9 mmol/L (21.0-32.0); CREATININE 0.69 mg/dL (0.70-1.30); Calcium 8.4 mg/dL (8.5-10.1); Chloride 100 mmol/L (98-107); ETHANOL BLOOD < 3.0 mg/dL (<3); Glucose 163 mg/dL (74-106); Potassium 3.7 mmol/L (3.5-5.1); Sodium 137 mmol/L (136-145); Total Protein 7.3 g/dL (6.4-8.2)
--- NOTE | 2019-09-03 11:56 | NUR.NOTE ---
Nursing Note: PT resting quietly in room after medication administration. PT was fed sandwich and crackers. Currently awaiting mental health counselor arrival.
[2019-09-03 12:54] LABS: Bilirubin Negative (Negative); Blood Negative (Negative); Clarity Clear (Clear); Glucose 100 mg/dL (Negative); Ketones Negative (Negative); Leukocyte Esterase Trace (Negative); Nitrite Negative (Negative); Specific Gravity 1.025 (1.005-1.025); Urobilinogen 0.2 EU/dL (Up TO 0.2); pH 6.5 (5-8)
[2019-09-03 13:04] LABS: *AMPHETAMINES SCREEN URINE Negative (Negative); *BARBITURATES SCREEN URINE Negative (Negative); *BENZODIAZEPINES SCREEN URINE Negative (Negative); Cannabinoids THC POSITIVE (Negative); Cocaine Screen,Urine Negative (Negative); METHADONE URINE SCREEN Negative (Negative); OPIATES URINE SCREEN Negative (Negative)
[2019-09-03 13:05] LABS: Bacteria Few HPF (Negative); C & S Indicated? Yes; Casts Negative LPF (Negative); Crystals Negative HPF (Negative); Epithelial Cells Rare HPF (Negative); Mucus Moderate (Negative); RBC Negative HPF (0-2)
[2019-09-03 13:07] LABS: Tricyclic Antidepressants Negative (Negative)
[2019-09-03 13:23] VITALS: BP 102/57; PULSE 85; RESP 20; TEMP 36.7; O2SAT 96
[2019-09-03] MEDS: Cephalexin 500 MG CAP, 4 CAPS/BTL PO (13:30)
== END 2019-09-03 13:36 | disposition home or self-care (01) ==
PROVIDERS: Emergency Provider Emergency Medicine
DX: N39.0 Urinary tract infection, site not specified (principal); F30.8 Other manic episodes
CPT/HCPCS: 80053; 80307; 96372; 99285; 80320; 81003; 81015; 84443; 85025; 87086; 99284; J1630; J2060

== ENCOUNTER 2019-11-26 10:52 | Emergency (ER) | payer MEDICARE, MEDICAID, SELFPAY ==
[2019-11-26 11:03] VITALS: BP 142/96; PULSE 99; RESP 16; TEMP 36.7; O2SAT 97
--- NOTE | 2019-11-26 11:06 | W.ED.GENAD ---
Discharge Plan Disposition Patient Disposition: HOME Condition: Good Discharge Details Chief Complaint: Nk/Back Pain Clinical Impression: Back pain, Muscle spasm Primary Care Provider: None,None ED Provider: Mary Kimball Home Meds and New Rx's Prescriptions: New diazepam [Valium] 5 mg tablet 5 mg PO BID PRN (Reason: muscle spasm) Qty: 7 RF: 0 Continued lorazepam [Ativan] 1 mg Tablet 1 mg PO TID RF: 0 ibuprofen 600 mg Tablet 600 mg PO DAILY RF: 0 Discharge Instructions Instructions: Diazepam (By mouth), Muscle Spasm (ED) Additional Instructions: Encourage water intake. Please continue with Tylenol and/or ibuprofen as needed for discomfort. You may use Valium as prescribed to help with muscle relaxation. Please separate the timing of this medication from your Ativan. A referral from primary care has been sent. Attached is a referral to physical therapy. Numbers are at the top of the page, please call Thursday morning to schedule follow-up appointment. If you develop fever/chills, increased pain, weakness, sensation changes or other new/worsening symptom please seek care urgently once again. Stand Alone Forms: Physical Therapy Referral Discharge Data Discharge Date/Time-TO BE ENTERED AT DEPARTURE: 11/26/19 11:42 Medical Decision Making Patient is a pleasant 4-year-old gentleman presenting to complaint of back pain. Past medical history significant for back pain, fracture, hepatitis C, PTSD. He is presenting today with acute on chronic back discomfort. Reports muscle spasms in the right side of his thoracic spine near the right scalp. He states the pain began a few days ago, associates this with painting recently. Chart review shows that the IM has worked well for his muscle spasms historically. Patient reports that he does not have a local primary care physician. I will request that be arranged. With the patient's chronic back pain as well as his psychiatric disorders, I do feel that, follow-up with primary care will be important. Patient also reports that he is done well with physical therapy, in particular hydrotherapy, historically and is requesting a referral to PT once again. Denies any chest pain, pleuritic pain, shortness of breath, fever, chill, nausea/vomiting/diarrhea. He denies any weakness, altered sensation. No change in bowel or bladder habits. On exam, patient is resting comfortably. He has good range of motion but does have discomfort particularly with extension of the back on the medial aspect of the right scapula. He has discomfort with palpation over this area. Is full range of motion of the right upper extremity. No weakness is noted. He has no saddle paresthesias. Full strength equal bilaterally more extremities. He has no midline tenderness, no step-off noted. No palpable deformities. No evidence of cauda equina. He does feel tight on the area indicated. Plan to apply Lidoderm patch and give p.o. Valium as this is worked well for him historically. Referral for primary care as well as physical therapy has been given patient's request. I will prescribe a short course of Valium as this has worked well for him in the past. Patient is chronically on Ativan. He was taken off of his Haldol. Patient has been on these medications concomitantly in the past and has done well with them. Patient is not driving does have responsible constitution party in the car with him. Patient feeling improved after p.o. Valium and Lidoderm patch. Feels ready for discharge. Have asked for prompt follow-up with primary care. Review of previous notes this has me concerned the patient also needs primary therapy will follow closely for his mental health issues. Physical therapy referral was also given. He was given return precautions. We discussed medication safety issues. All of his questions and concerns were addressed and he is in agreement this plan. [facility] General Mode of arrival: ambulatory. Date/Time Provider Initiated Documentation: 11/26/19 11:06. Limitations to Documentation: no limitations. Information obtained by: patient, RN notes reviewed and old records reviewed. History of Present Illness 64 year old M presents to the emergency department with the chief complaint of right upper back pain, described as severe and similar to prior episodes, with intensity rated at 8. Quality is described as aching, and is localized to the back. Patient reports no radiation. Patient started experiencing this day(s) and it has been constant. Immobilization improves symptom(s), Movement worsens symptoms . Patient notes no other symptoms.; denies chest pain, cough, diaphoresis, fever/chills, loss of appetite, nausea/vomiting, rash, shortness of breath and weakness. Patient did receive the following treatments prior to arrival, NSAID Related Data Home Medications Medication Instructions Recorded Confirmed ibuprofen 600 mg PO DAILY 09/17/18 11/26/19 lorazepam [Ativan] 1 mg PO TID 09/17/18 11/26/19 diazepam [Valium] 5 mg PO BID PRN #7 tab 11/26/19 Previous Rx's Medication Instructions Recorded diazepam [Valium] 5 mg PO BID PRN #7 tab 11/26/19 Allergies Allergy/AdvReac Type Severity Reaction Status Date / Time No Known Allergies Allergy Unverified 11/26/19 11:08 General MONISHA: 2 Review of Systems Constitutional Constitutional: Reports as per HPI, Denies chills, Denies fatigue, Denies fever(s), Denies frequent falls and Denies headache(s) Eyes Eyes: Denies change in vision ENT Ears, Nose, Mouth, and Throat: Denies headache(s) Cardiovascular Cardiovascular: Denies chest pain, Denies dyspnea and Denies dyspnea on exertion Respiratory Respiratory: Denies cough, Denies dyspnea and Denies dyspnea on exertion Gastrointestinal Gastrointestinal: Denies abdominal pain, Denies change in bowel habits and Denies fecal incontinence Genitourinary Genitourinary: Reports as per HPI, Denies urinary hesitancy and Denies urinary incontinence Musculoskeletal Musculoskeletal: Reports as per HPI, Reports back pain, Denies muscle weakness, Denies numbness, Denies radiating pain into limb, Reports stiffness and Denies tingling Integumentary/Breasts Skin/Breast: Reports as per HPI and Denies rash Neurologic Neurologic: Reports as per HPI, Denies frequent falls, Denies headache(s), Denies localized weakness, Denies numbness, Denies radicular pain, Denies sensory deficit, Denies tingling and Denies paresthesias Endocrine Endocrine: Denies fatigue [facility] Medical History Back fracture (Resolved) Back pain (Chronic) Cancer determined by biopsy of tongue (Acute) Diarrhea (Acute) Hepatitis C (Chronic) PTSD (post-traumatic stress disorder) (Chronic) PTSD (post-traumatic stress disorder) (Chronic) Weight loss (Acute) Surgical History History of surgery on extremity (Resolved) b/l forearm s/p trauma Social History Smoking/Tobacco Use Status: Current every day Tobacco Type: cigarettes Alcohol Intake: never Drug use: Never Substance use type: does not use Do you feel safe at home: Yes Do you feel safe in your relationship?: Yes Exam Const General: cooperative, healthy appearing, comfortable, no acute distress, well developed and well groomed Nutritional Appearance: average body habitus and well nourished Orientation: alert and awake Eyes General: appearance normal, both eyes and all related structures Neck Neck: normal visual inspection, full ROM, no lymphadenopathy and no meningeal signs Resp Effort & Inspection: normal respiratory effort and able to speak in complete sentences Auscultation: clear to auscultation bilaterally, no rales, no rhonchi and no wheezes Cardio Rate: regular rate Rhythm: regular rhythm Heart Sounds: S1 normal and S2 normal Skin General skin exam: no rashes or lesions noted Neuro General: patient alert and patient awake Cognition: normal cognition Speech: speech normal Gait: normal gait Motor: muscle tone normal throughout, strength 5/5 throughout, no movement abnormalities noted and no fasciculations Sensory Exam: no sensory deficits noted (no saddle paresthesias) DTR's: Rt Patellar: 2+, Lt Patellar: 2+, Rt Ankle: 2+ and Lt Ankle: 2+ Extrem General: normal to inspection, full ROM, capillary refill normal, no joint enlargement, no pedal edema, no calf tenderness and normal gait Psych Appearance: grossly normal and well kempt Mental Status: mental status grossly normal Speech and Movement: speech and movement normal
[2019-11-26] MEDS: Lidocaine 5% Patch 1 PATCH TP (11:55)
[2019-11-26] MEDS: diazePAM 5 MG TAB PO (11:55)
--- NOTE | 2019-11-30 16:02 | PDOC.ERCMPRO ---
- If Service Date Differs Date of service: 11/30/19 Time of Service: 16:02 Care Management Progress Note At the request of ED provider, CM coordinates referral to Linda Andre, Ph.D., plastic straightening roll operator, [facility] (teledoc), to assist patient in establishing care with a local PCP.
== END 2019-11-26 11:42 | disposition home or self-care (01) ==
PROVIDERS: Emergency Provider Physician Assistant
DX: M62.830 Muscle spasm of back (principal); M54.6 Pain in thoracic spine; G89.29 Other chronic pain
CPT/HCPCS: 99283

== ENCOUNTER 2019-12-19 07:30 | Emergency (ER) | payer MEDICARE, MEDICAID, SELFPAY ==
[2019-12-19 07:33] VITALS: BP 145/83; PULSE 92; RESP 16; TEMP 36.7; O2SAT 99
--- NOTE | 2019-12-19 08:11 | W.ED.GENAD ---
Discharge Plan Disposition Patient Disposition: HOME Condition: Stable Discharge Details Chief Complaint: Orthopedic Clinical Impression: Back pain, Muscle spasm Primary Care Provider: Michelle Lee ED Provider: Catrachita Pascal Home Meds and New Rx's Prescriptions: Continued diazepam [Valium] 5 mg tablet 5 mg PO BID PRN (Reason: muscle spasm) Qty: 6 RF: 0 Discontinued diazepam [Valium] 5 mg tablet 5 mg PO BID PRN (Reason: muscle spasm) Qty: 7 RF: 0 No Action lorazepam [Ativan] 1 mg Tablet 1 mg PO TID RF: 0 ibuprofen 600 mg Tablet 600 mg PO DAILY RF: 0 Discharge Instructions Instructions: Muscle Spasm (ED), Back Pain (ED) Additional Instructions: Follow up with primary care provider in 3-5 days. Return to ED sooner if any worsening or concerns. Increase oral fluids. Take medications as prescribed. At this time we will try cyclobenzaprine for muscle spasm instead of the Valium. Try alternating ice and heat. Referrals: Michelle Lee, FORENSIC SCIENCE EXAMINER [Primary Care Provider] - Discharge Data Discharge Date/Time-TO BE ENTERED AT DEPARTURE: 12/19/19 08:30 Medical Decision Making 64-year-old male presents to the ED with lower back spasm. Patient was seen here on November 26, 2019 for similar complaint. He denies any problems urinating or dysuria, no saddle anesthesia, no loss of bowel or bladder control. He denies any numbness or tingling. He states that he has lower back spasm which radiates into his bilateral buttocks down to the back of his legs. He does not endorse any radiation into his knees or ankles. He is ambulatory in department without difficulty. On initial exam he has no midline spine tenderness but lumbar paraspinous tenderness. He is requesting diazepam which was prescribed at last visit. He does already take lorazepam 3 times a day as needed for anxiety. He did take an ibuprofen and lorazepam prior to arrival. He does have a history of back fracture, oral cancer, diarrhea, hepatitis C, PTSD 64-year-old male presents to the ED for the second time this month for refill of his diazepam which she was prescribed at his last visit. He has no red flags, denies any other symptoms. Against my better judgment I will give him #6 diazepam 5 mg. Prescribed Flexeril initially which patient refused. He does have a new PCP appointment upcoming on the with [facility]. Patient discharged with strict return instructions, verbalized understanding. HPI General Mode of arrival: ambulatory. Date/Time Provider Initiated Documentation: 12/19/19 07:37. Limitations to Documentation: no limitations. Information obtained by: patient. HPI Narrative: 64-year-old male presents to the ED with lower back spasm. Patient was seen here on November 26, 2019 for similar complaint. He denies any problems urinating or dysuria, no saddle anesthesia, no loss of bowel or bladder control. He denies any numbness or tingling. He states that he has lower back spasm which radiates into his bilateral buttocks down to the back of his legs. He does not endorse any radiation into his knees or ankles. He is ambulatory in department without difficulty. On initial exam he has no midline spine tenderness but lumbar paraspinous tenderness. He is requesting diazepam which was prescribed at last visit. He does already take lorazepam 3 times a day as needed for anxiety. He did take an ibuprofen and lorazepam prior to arrival. He does have a history of back fracture, oral cancer, diarrhea, hepatitis C, PTSD Related Data Home Medications Medication Instructions Recorded Confirmed ibuprofen 600 mg PO DAILY 09/17/18 12/19/19 lorazepam [Ativan] 1 mg PO TID 09/17/18 12/19/19 diazepam [Valium] 5 mg PO BID PRN #6 tab 12/19/19 Previous Rx's Medication Instructions Recorded diazepam [Valium] 5 mg PO BID PRN #6 tab 12/19/19 Allergies Allergy/AdvReac Type Severity Reaction Status Date / Time No Known Allergies Allergy Unverified 12/19/19 07:40 General Stated Complaint: Orthopedic MONISHA: 4 Review of Systems Narrative: Constitutional: Negative for weight loss, alert and oriented, well groomed, normal body habitus, appears comfortable. HEENT: Denies trauma, headaches, blurry vision, nasal discharge, sore throat, trouble swallowing. Chest: Denies chest pain, palpitations, irregular rhythm, hypertension. Respiratory: Denies Shortness of breath, cough, hemoptysis. GI: Denies abdominal pain, nausea, vomiting, diarrhea, constipation. : Denies dysuria, hematuria, flank pain, rectal bleeding. Neuro: Denies dizziness, blurry vision, weakness, syncope, headache or facial numbness. Hematologic: Denies easy bruising, intolerance to heat or cold, hair loss. [facility] Medical History Back fracture (Resolved) Back pain (Chronic) Cancer determined by biopsy of tongue (Acute) Diarrhea (Acute) Hepatitis C (Chronic) PTSD (post-traumatic stress disorder) (Chronic) PTSD (post-traumatic stress disorder) (Chronic) Weight loss (Acute) Surgical History History of surgery on extremity (Resolved) b/l forearm s/p trauma Social History Smoking/Tobacco Use Status: Current every day Tobacco Type: cigarettes Alcohol Intake: never Drug use: Never Substance use type: does not use Do you feel safe at home: Yes Do you feel safe in your relationship?: Yes Exam Narrative Exam Narrative: Constitutional: Alert and oriented x3. Appears stated age. Normal body habitus. Head: Normocephalic, no trauma. Eyes: Pupils PERRLA, Red reflex noted, EOM's intact. Eyelids symmetrical without lesions, discharge, or swelling. ENT: Bilateral TM's WNL, External ear normal to inspection, no mastoid TTP, swelling, or erythema, Nasal turbinates WNL, no nasal discharge. Normal dentition, Posterior pharynx WNL, no exudate. Chest: RRR, Normal S1, S2, distal pulses intact. Resp: Lungs clear to auscultation bilaterally, no wheezes, rales, or rhonchi. Musculoskeletal: Normal gait, 5/5 strength to all four extremities. Positive straight leg test. Does have paraspinous tenderness and tightness noted with palpation to the lower lumbar spine. Skin: No suspicious rashes or lesions. Capillary refill less than 2 sec. Neurologic: Cranial nerves II-XII intact. Alert and oriented x 3. DTR's intact. Hematologic/Lymphatic: No ecchymosis, no lymphadenopathy. Course Vital Signs Vital signs: Vital Signs Temperature 36.7 C 12/19/19 07:33 Pulse 92 H 12/19/19 07:33 Respiratory Rate 16 12/19/19 07:33 Blood Pressure 145/83 H 12/19/19 07:33 Pulse Oximetry 99 07/06/20 07:33 Temperature 36.7 C 12/19/19 07:33 Temperature Source Temporal Artery Scan 12/19/19 07:33 Pulse 92 H 12/19/19 07:33 Respiratory Rate 16 12/19/19 07:33 Respiratory Effort Non-Labored 12/19/19 07:37 Blood Pressure 145/83 H 12/19/19 07:33 Blood Pressure Position Sitting 12/19/19 07:33 Pulse Oximetry 99 12/19/19 07:33 Oxygen Delivery Method Room Air 12/19/19 07:33 Oxygen Flow Rate 0 12/19/19 07:33 Pain Level 8 12/19/19 07:38
== END 2019-12-19 08:30 | disposition home or self-care (01) ==
PROVIDERS: Emergency Provider Registered Nurse Emergency; PCP Nurse Practitioner Family
DX: M62.830 Muscle spasm of back (principal)
CPT/HCPCS: 99283

== ENCOUNTER 2020-02-01 12:10 | Emergency (ER) | payer MEDICARE, MEDICAID, SELFPAY ==
[2020-02-01 12:17] VITALS: BP 142/82; PULSE 105; RESP 20; TEMP 36.8; O2SAT 98
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
[2020-02-01] MEDS: Ketorolac 60 MG/2 ML VIAL IM (12:35)
== END 2020-02-01 12:41 | disposition left against medical advice (07) ==
PROVIDERS: Emergency Provider Registered Nurse Emergency
DX: M54.5 Low back pain (principal); V18.0XXA Pedal cycle driver injured in noncollision transport accident in nontraffic accident, initial encounter; Z53.29 Procedure and treatment not carried out because of patient's decision for other reasons
CPT/HCPCS: 96372; 99284; J1885

== ENCOUNTER 2021-01-30 10:50 | Outpatient (REF) | payer MEDICARE, MEDICAID, SELFPAY ==
[2021-01-30 14:56] LABS: HCT 45.6 % (40.0-50.0); HGB 15.1 g/dL (13.5-17.5); MCH 33.3 pg (27.0-33.0); MCHC 33.1 % (32.0-36.0); MCV 100.4 fL (80-95); MPV 11.4 fL (8.0-11.0); Platelet Count 195 10^3/uL (130-400); RBC 4.54 10^6/uL (4.36-5.78); RDW 11.9 % (11.8-14.1); RDW-SD 44.5 fL
[2021-01-30 15:05] LABS: Hemoglobin A1C 5.7 % (<5.7)
[2021-01-30 15:11] LABS: ALT 137 U/L (16-63); AST 93 U/L (15-37); Albumin 4.2 g/dL (3.4-5.0); Alkaline Phosphatase 119 U/L (46-116); Anion Gap 9.7 mmol/L (3-11); BUN 16 mg/dL (7-18); Bilirubin, Total 0.7 mg/dL (0.2-1.0); CO2 29.3 mmol/L (21.0-32.0); CREATININE 0.9 mg/dL (0.70-1.30); Calcium 8.9 mg/dL (8.5-10.1); Calculated LDL 60 mg/dL (<100); Chloride 104 mmol/L (98-107); Cholesterol 145 mg/dL (<200); GGT 284 U/L (15-85); Glucose 111 mg/dL (74-106); HDL Cholesterol 79 mg/dL (40-60); Potassium 4.2 mmol/L (3.5-5.1); Sodium 143 mmol/L (136-145); Total Protein 7.5 g/dL (6.4-8.2); Triglyceride 33 mg/dL (<150)
[2021-01-31 09:58] LABS: HIV-1/2 Ag & Ab Screen Negative (Negative)
[2021-01-31 10:34] LABS: Hep A Total Ab w Rflx IgM Positive (Negative)
[2021-01-31 10:50] LABS: Hepatitis C Ab w Rflx HCV PCR Reactive (Negative)
[2021-01-31 10:53] LABS: HBs Antibody, Quant 34.1 mIU/mL (See Note); Hep B Surface Ab Positive (See Note); Hepatitis B Core Antibody Positive (Negative); Hepatitis B Surface Antigen Negative (Negative)
[2021-01-31 12:07] LABS: Hep A Antibody IgM Negative (Negative)
[2021-02-01 14:44] LABS: HCV RNA Qualitative Detected (Undetected)
== END 2021-01-30 10:51 | disposition home or self-care (01) ==
LOC: NCHCN 10:50
PROVIDERS: Visit Provider Nurse Practitioner Family
DX: B18.2 Chronic viral hepatitis C (principal); Z11.4 Encounter for screening for human immunodeficiency virus [HIV]; E66.3 Overweight; R73.09 Other abnormal glucose
CPT/HCPCS: 80053; 80061; 85027; 86704; 86706; 86709; 86803; 87340; 87389; 87522; 82977; 83036; 87350

== ENCOUNTER → 2021-05-13 11:16 | Outpatient (BNVA) | payer MEDICARE, MEDICAID, SELFPAY | PROVIDERS: PCP Nurse Practitioner Family; Referring Provider Nurse Practitioner Family; Visit Provider Surgery | DX: K52.9 Noninfective gastroenteritis and colitis, unspecified (principal); K82.8 Other specified diseases of gallbladder; B18.2 Chronic viral hepatitis C | CPT/HCPCS: 99203; 99214 ==

== ENCOUNTER 2021-05-22 01:55 | Outpatient (CLI) | payer MEDICARE, MEDICAID, SELFPAY ==
[2021-05-22 11:39] LABS: Source Nasal/Nares
[2021-05-22 13:50] LABS: COVID-19 PCR Negative (Negative)
== END 2021-05-22 01:56 | disposition home or self-care (01) ==
LOC: LBO 01:56
PROVIDERS: PCP Nurse Practitioner Family; Visit Provider Surgery
DX: Z20.822 Contact with and (suspected) exposure to COVID-19 (principal)
CPT/HCPCS: 87635

== ENCOUNTER 2021-05-24 11:06 | Day surgery (SDC) | payer MEDICARE, MEDICAID, SELFPAY ==
--- NOTE | 2021-05-23 21:35 | ENDO_ITS ---
Date of service: 05/24/21 Endoscopy Report DATE OF PROCEDURE: 05/24/21 PRE-OP DIAGNOSIS: abdom pain/Hep C POST-OP DIAGNOSIS: other (gastritis/duodenitis) SURGEON: Marycruz Cho ANESTHESIA TYPE: General:No Airway PATHOLOGY: other COMPLICATIONS: None DISPOSITION: same day PROCEDURE DESCRIPTION: After informed consent was obtained the patient was take to the procedure room and placed in a supine position. Monitors were applied and a time out was done. The patients name, date of , procedure type, allergies to medications and metal in their body was reviewed. A bite block was placed and the patient was sedated. Once sedated and comfortable the gastroscope was advanced through the oropharynx which was grossly normal into the esophagus. The proximal and mid-esophagus were nl- no varices. In the distal esophagus there was no: esophageal ersosions/varices/diverticula/stricture. The scope was advanced into the stomach and through the pylorus into the 3rd portion of the duodenum. The duodenum was noted to be mild doudenitis in a patchy fashion in the duodenal bulb. Biopsies were done -all specimens are retrieved and no bleeding is noted.. The scope was retracted back into the stomach and biopsies were done to rule out H. pylori. There were no ulcers. There is a moderate gastritis in a striped pattern radiating from the antrum. The scope was retroflexed. The cardia and fundus were noted to be normal. There is no hiatal hernia noted. The scope was retracted back into the esophagus and biopsies were done of the GE junction to rule out Kerns's. The Z line was regular.. The scope was removed and the patient was woken up and taken back to [facility] in stable condition. Follow up: 3 wks stop taking ASA
--- NOTE | 2021-05-23 21:36 | W.COLOREPORT ---
Colonoscopy Report Date of procedure: 05/24/21 Pre-op diagnosis general: abdominal pain/diarrhea Post-op diagnosis procedure note: other (Colon polyp) Surgeon: Marycruz Cho Anesthesia Type: General:No Airway Estimated blood loss (mL): 1 Pathology: other Complications: None Disposition: same day Prep: Miralax/Dulcolax Retraction Time: 10 Procedure Description: After informed consent was obtained the patient was taken to the procedure room and placed in a left decubitous position. Monitors were applied and a time out was done. The patients name, date of , procedure, allergies to medications and metal in their body was reviewed. The patient was then sedated. Once sedated and comfortable a rectal exam was done. External exam was normal. Internal exam revealed a normal sphincter tone and no palpable masses. The scope was then introduced and retrofelexed. No internal hemorrhoids were identified. The scope was then advanced to the cecum w/out difficulty. The TI and appendiceal orifice were identified. The prep was good. The scope was then slowly retracted over 10 minutes back into the rectum. He has a 5 mm, flat polyp at 80 cm. This is removed with a cold biopsy for sent. The mucosa is pink and normal. There is no abnormalities to explain his current diarrhea. He does not have any diverticula. Biopsies are taken in the cecum/70/50/30 centimeters and in the rectum. All specimens are retrieved and no bleeding is noted. The scope was removed and the patient was woken up and taken back to Same day surgery in stable condition. The patient tolerated the procedure well and there were no immediate complications. Follow up: The patient should follow up in 5010 years-pathology pending, unless they develop changes in bowel habits or other new gastrointestinal complaints.
--- NOTE | 2021-05-23 21:37 | PDOC.DSDIS_ITS ---
Discharge Plan Disposition Patient Disposition: HOME Condition: Good Discharge Details Reason For Visit: egd/colo scope Attending Provider: Marycruz Cho Primary Care Provider: Conchita Chung Home Meds and New Rx's Prescriptions: New famotidine [Pepcid] 40 mg tablet 40 mg PO DAILY Qty: 30 RF: 12 Continued diazepam [Valium] 5 mg tablet 5 mg PO QID RF: 0 cyclobenzaprine 5 mg tablet 5 mg PO QHS RF: 0 loperamide [Anti-Diarrheal (loperamide)] 2 mg tablet 4 mg PO Q6H PRNRF: 0 nicotine [Nicoderm CQ] 7 mg/24 hr patch 24 hour 1 patch transdermal Q24H RF: 0 nicotine [Nicoderm CQ] 14 mg/24 hr patch 24 hour 1 patch transdermal DAILY RF: 0 Discontinued polyethylene glycol 3350 17 gram/dose powder 238 g PO ONCE Qty: 238 RF: 0 bisacodyl [Dulcolax (bisacodyl)] 5 mg tablet,delayed release (DR/EC) 5 mg PO ONCE Qty: 4 RF: 0 aspirin 81 mg Capsule RF: 0 Discharge Instructions Additional Instructions: DSU Colonoscopy Post- Op Instructions Instructions for Everyone who is given Anesthesia: For your safety, please do the following for the next twenty-four (24) hours: *Do Not operate a motor vehicle (car, truck, motorcycle, etc.) *Do Not drink alcoholic beverages or use any recreational drugs for the first 24 hours or while taking pain medications. The medications in your body may have a reaction that can be dangerous. *Do Not make any important decisions or sign any important papers. Findings: duodenitis/gastritis diverticula polyp Follow up:2-3 wks for bx results f/u PCP to refer to Hep C clinic at [facility] [place] 1. No lifting over 20 pounds or strenuous activity for the first 24 hours after your procedure. After 24 hours there are no restrictions on your activity but you may feel fatigued for a few days. 2. After you arrive home you may have a light meal and return to your normal diet as you can tolerate it without feeling sick to your stomach. 3. You may have a bloated, gaseous feeling in your belly (abdomen) after a colonoscopy. Passing gas and belching will help. Walking or lying down on your left side with your knees flexed may relieve the discomfort. Call the office at [phone] (Office) or [phone] (Hospital) right away if you notice any of the following: a.Vomiting of blood or ?coffee ground stools?. b.Rectal bleeding 1Tbsp, blood clots or continuous bleeding. c.Severe belly (abdominal) pain. d.A hard distended belly (abdomen) and an inability to pass gas. 4. Please don?t expect to have a normal BM (bowel movement) for 2-3 days after your procedure. 5. If there are questions regarding the findings of your procedure, please contact your doctor 6. If you are unable to contact your doctor with a problem, contact the hospital at [phone]. 7. Continue all your regular medications unless directed otherwise. I understand the above instructions and have no questions. Signature of Patient or Adult Escort Name of Responsible Adult Escort Signature of Nurse Date/Time Activity:: see above Diet:: see above Discharge Orders Discharge Orders: Discharge Order (Routine); Ordered 05/23/21 Ordered By: Marycruz Cho DS: Diagnosis Discharge Diagnosis (1) Elevated LFTs: Status: Acute (2) SANCHEZ (nonalcoholic steatohepatitis): Status: Acute (3) Chronic diarrhea: Status: Acute
[2021-05-24 11:23] VITALS: BP 125/86; PULSE 104; RESP 20; TEMP 36.1; O2SAT 98
[2021-05-24] MEDS: Lactated Ringers 1,000 ML 80 ML IV (11:40)
--- NOTE | 2021-05-24 12:35 | W.ANESPRE ---
General Info Date of Service Date Performed: 05/24/21 Height: 5 ft 9 in Weight: 91.172 kg Body Mass Index (BMI): 29.7 Surgical Procedure: Operation Date: 05/24/21 11:20 Proposed Procedures Side Surgeon p Colonoscopy/Gastroscopy w/biopsies Marycruz Cho DO Meds Allergies and Home Medications Allergies Allergy/AdvReac Type Severity Reaction Status Date / Time haloperidol Allergy Severe Verified 05/22/21 15:14 Home Medication Medication Instructions Recorded cyclobenzaprine 5 mg tablet 5 mg PO QHS 05/02/21 loperamide 2 mg tablet 4 mg PO Q6H PRN tab 05/02/21 nicotine 14 mg/24 hr daily 1 patch TRANSDERMAL DAILY 05/02/21 transdermal patch nicotine 7 mg/24 hr daily 1 patch TRANSDERMAL Q24H 05/02/21 transdermal patch diazepam 5 mg tablet 5 mg PO QID tab 05/13/21 aspirin 05/24/21 Current Visit Medications: Current Medications Generic Name Dose Route Start Last Admin Trade Name Freq PRN Reason Stop Dose Admin Hyoscyamine Sulfate 0.125 mg 05/23/21 21:32 Hyoscyamine 0.125 Mg Sl/Oral/Chew SL DIRECTED PRN Ringer's Solution 1,000 mls @ 80 mls/hr 05/24/21 06:00 05/24/21 11:40 IV 06/22/21 23:59 80 mls/hr INFUSION LULI Administration IV Miscellaneous Supplies 1 each 05/24/21 06:00 Iv Access IV 06/22/21 23:59 DIRECTED LULI Ondansetron HCl 4 mg 05/23/21 21:32 Ondansetron 4 Mg/2 Ml Vial IVP Q4H PRN PRN Nausea / Vomiting Sodium Chloride 0 ml 05/24/21 06:00 Normal Saline Flush 10 Ml Syr IV 06/22/21 23:59 PRN PRN Sodium Chloride 0 ml 05/24/21 06:00 Normal Saline 10 Ml Vial IJ 06/22/21 23:59 DIRECTED PRN Sterile Water 0 ml 05/24/21 06:00 Water,Injection,Sterile 10 Ml Vial IJ 06/22/21 23:59 DIRECTED PRN PFSH Active Problems Active Problems: Problem Status Onset Code PTSD (post-traumatic stress disorder) F43.10 Hepatitis C B19.20 Elevated LFTs R79.89 Vertebral artery stenosis I65.09 SANCHEZ (nonalcoholic steatohepatitis) K75.81 Spinal stenosis M48.00 Elevated LFTs R79.89 Gallbladder sludge K82.8 Chronic diarrhea K52.9 Syncope R55 Melyssa F30.9 Medical History Medical History Back fracture Back pain Cancer determined by biopsy of tongue Chronic hepatitis C without mention of hepatic coma Diarrhea Elevated blood-pressure reading without diagnosis of hypertension IBS (irritable bowel syndrome) Leg cramps Overweight PTSD (post-traumatic stress disorder) Weight loss Surgical History Surgical History History of surgery on extremity b/l forearm s/p trauma Tobacco Smoking/Tobacco Use Status: Current every day Tobacco Type: cigarettes Smoking cigarettes per day: 10 Alcohol Alcohol Intake: never Substance Use Substance use: Never Substance use type: does not use Vital Signs and Lab Results Vital Signs Most Recent Vital Signs in EMR: Most Recent Vital Signs Temp Pulse Resp BP Pulse Ox 36.1 C L 104 H 20 125/86 98 05/24/21 11:23 05/24/21 11:23 05/24/21 11:23 05/24/21 11:23 05/24/21 11:23 Lab Results Blood Type / Crossmatch: No Data to Display Complete Blood Count: No Data to Display Complete Metabolic Panel: No Data to Display Liver Function Panel: No Data to Display Coagulation Panel: No Data to Display Cardiac Panel: No Data to Display Arterial Blood Gas: No Data to Display Venous Blood Gas: No Data to Display Pancreas Panel: No Data to Display Thyroid Panel: No Data to Display Infectious Disease: Coronavirus (COVID-19)(PCR) Negative (Negative) 05/22/21 09:35 05/22/21 Coronavirus 2019 Source Nasal/Nares 05/22/21 09:35 05/22/21 Blood Cultures: No Data to Display Toxicology Panel: No Data to Display Anesthesia Assessment and Plan Anesthesia History Personal History: No History of Anesthesia Complications Family History: No Family History of Anesthesia Complications Exercise Tolerance Exercise Tolerance: Metabolic Equivalents>4 Pertinent Negatives Pertinent Negatives: No Symptoms of GERD, No Major Cardiovascular Symptoms or Complaints and No Major Pulmonary Symptoms or Complaints Cardiac & Pulmonary Exam Cardiac Exam: Normal S1/S2 Heart Sounds Pulmonary Exam: Clear Bilateral Breath Sounds Implantable Cardiac Device Does patient have a Pacemaker or an ICD?: No Airway Exam Known Difficult Airway: No Mallampati Class: 2 Mouth Opening: Normal (> 3cm) Thyromental Distance: Greater than 3 cm Neck Range of Motion: Full ROM Neck Circumference: Normal Teeth Condition: Removable Dentures/Plates Upper and Removable Dentures/Plates Lower ASA Classification ASA Score: ASA 2 Emergency Case?: No NPO Status NPO Status: NPO Clears >2 hours, Solids >8 hours Anesthesia Plan Resuscitation Status: Full Code Anesthesia Technique: General Anesthesia Airway Planned: Natural Airway Monitors Used: Standard Monitors
[2021-05-24 12:39] VITALS: BMI 29.7
--- NOTE | 2021-05-24 12:51 | BOWEL_PTH ---
PATIENT: Russell Rosa LOC: [facility] U#:[id number] AGE/SX: 66/M ROOM: RE05/24/[address]: Marycruz Cho : 1955 BED: DIS: 05/24/2021 SPEC #: [id number] RECD: 05/24/21 15:24 STATUS: SHIVA REZhou #: [id number] ASHLEY: 05/24/21 12:[address]: Marycruz Cho DEPT: Surgical Specimen RECD BY: Leslie Montes ENTERED: 05/24/21 15:32 SP TYPE: Bowel OTHR DR: Conchita Chung Tissues: 1 - BIOPSY BOWEL 2 - BIOPSY BOWEL 3 - STOMACH BIOPSY 4 - STOMACH BIOPSY 5 - ESOPHAGUS BIOPSY 6 - ESOPHAGUS BIOPSY 7 - BIOPSY BOWEL 8 - BIOPSY BOWEL 9 - BIOPSY BOWEL 10 - BIOPSY BOWEL 11 - BIOPSY BOWEL 12 - BIOPSY BOWEL Procedures: GROSS AND MICRO LEVEL 4 Comments: [id number]
[2021-05-24 13:25] VITALS: BP 119/77; PULSE 79; RESP 16; TEMP 36.6; O2SAT 94
[2021-05-24 13:55] VITALS: BP 110/81; PULSE 68; RESP 16; TEMP 36.9; O2SAT 100
--- NOTE | 2021-05-24 14:05 | W.ANESPOSTOP ---
Postoperative Evaluation Date, Time and Location Date Performed: 05/24/21 Time Performed: 13:28 Patient Location: Day Surgery Unit Vital Signs Most Recent Imported Vital Signs: Most Recent Vital Signs Temp Pulse Resp BP Pulse Ox 36.6 C 79 16 119/77 94 05/24/21 13:25 05/24/21 13:25 05/24/21 13:25 05/24/21 13:25 05/24/21 13:25 Pain Score Most Recent Pain Score: Most Recent Pain Score Pain Level 0 05/24/21 11:23 Assessment Mental Status: Awake (Alert & Oriented to Patient Baseline) Airway and Respiratory Function: Patent airway with normal (patient baseline) respiratory exam Cardiovascular Function: Hemodynamically Stable Hydration Status: Adequately Hydrated Nausea & Vomiting: No Nausea or Vomiting Pain: Pt. Denies Any Pain Peripheral Nerve Block: Patient did not receive a nerve block
== END 2021-05-24 14:50 | disposition home or self-care (01) ==
PROVIDERS: PCP Nurse Practitioner Family; Visit Provider Surgery
PROC: (CPT 45380; principal; 2021-05-24 11:15)
DX: R10.9 Unspecified abdominal pain; R19.7 Diarrhea, unspecified; K29.70 Gastritis, unspecified, without bleeding; K29.80 Duodenitis without bleeding; K31.89 Other diseases of stomach and duodenum
CPT/HCPCS: 45380; 43239; 88305

== ENCOUNTER 2021-06-10 15:24 | Outpatient (REF) | payer MEDICARE, MEDICAID, SELFPAY ==
[2021-06-13 10:17] LABS: ALT 172 U/L (7-55); ActiTest Grade A3; ActiTest Interpretation severe activity; ActiTest Score 0.86; Alpha-2-Macroglobulin 322 mg/dL (100 - 280); Apoliprotein A1 156 mg/dL (>=120); Bilirubin, Total 0.7 mg/dL (<=1.2); FibroTest Interpretation advanced fibrosis; FibroTest Score 0.72; FibroTest Stage F3-F4; GGT 137 U/L (8 - 61); Haptoglobin 136 mg/dL (30 - 200)
[2021-06-13 22:06] LABS: HCV Genotype 3 (Undetected)
== END 2021-06-10 15:25 | disposition home or self-care (01) ==
LOC: NCHCN 15:24
PROVIDERS: PCP Nurse Practitioner Family; Visit Provider Family Medicine
DX: B18.2 Chronic viral hepatitis C (principal)
CPT/HCPCS: 81596; 87521

== ENCOUNTER 2021-06-19 01:27 | Outpatient (CLI) | payer MEDICARE, MEDICAID, SELFPAY ==
--- NOTE | 2021-06-19 08:45 | DI.US_ITS ---
Exam(s) US ABDOMEN EXAM: US ABDOMEN INDICATION: sludge on CT/diarrhea w/ fatty foods/hx of Hep C,elevated lft's,r79.89,k82. COMPARISON: No exams were available for comparison TECHNIQUE: Ultrasound abdomen performed using standard protocol FINDINGS: Abdominal ultrasound was performed according to the usual protocol. The liver is incompletely visualized due to the patient's body habitus. There is increased echogenic ity of the hepatic parenchyma consistent with hepatic steatosis.. No focal hepatic lesion seen. There is no evidence of cholelithiasis or biliary dilatation. No gallbladder wall thickening or peric holecystic fluid collection. Portal venous flow is hepatopetal. Pancreas appears intact as visualized, the pancreatic tail is not visualized due to overlying bowel g as.. Spleen is unremarkable in appearance with no focal lesion. Kidneys are normal in size and shape. No renal mass, hydronephrosis, or nephrolithiasis. Abdominal aorta and IVC are of normal diameter, proximal aorta is nonvisualized due to the patient's body habitus.. IMPRESSION: Probable hepatic steatosis. No other significant findings..
== END 2021-06-19 01:47 ==
PROVIDERS: PCP Nurse Practitioner Family; Visit Provider Surgery
DX: K52.89 Other specified noninfective gastroenteritis and colitis; K82.8 Other specified diseases of gallbladder; R79.89 Other specified abnormal findings of blood chemistry
CPT/HCPCS: 76700

== ENCOUNTER → 2021-06-24 10:22 | Outpatient (BNVA) | payer MEDICARE, MEDICAID, SELFPAY | PROVIDERS: PCP Nurse Practitioner Family; Referring Provider Nurse Practitioner Family; Visit Provider Surgery | DX: Z48.815 Encounter for surgical aftercare following surgery on the digestive system (principal); K52.9 Noninfective gastroenteritis and colitis, unspecified; B19.20 Unspecified viral hepatitis C without hepatic coma; K75.81 Nonalcoholic steatohepatitis (NASH); K82.8 Other specified diseases of gallbladder | CPT/HCPCS: 99203; 99213 ==

== ENCOUNTER 2021-09-07 09:22 | Emergency (ER) | payer MEDICARE, MEDICAID, SELFPAY ==
[2021-09-07 09:34] VITALS: BP 113/76; PULSE 95; RESP 16; TEMP 36.5; O2SAT 96
--- NOTE | 2021-09-07 09:56 | ED.GENADUL_ITS ---
Discharge Plan Disposition Patient Disposition: HOME Condition: Good Discharge Details Clinical Impression: Conjunctivitis Primary Care Provider: Conchita Chung ED Provider: Madan Schmidt Home Meds and New Rx's Prescriptions: New polymyxin B sulf-trimethoprim 10,000 unit- 1 mg/mL drops 1 drp ophthalmic (eye) Q3H 7 Days Qty: 10 0RF Rx Instructions: while awake; do not exceed 6 doses in 24 hours Continued pantoprazole [Protonix] 40 mg tablet,delayed release (DR/EC) 40 mg PO DAILY Qty: 90 4RF diazepam [Valium] 5 mg tablet 5 mg PO QID 0RF cyclobenzaprine 5 mg tablet 5 mg PO QHS PRN0RF loperamide [Anti-Diarrheal (loperamide)] 2 mg tablet 4 mg PO Q6H PRN0RF nicotine [Nicoderm CQ] 7 mg/24 hr patch 24 hour 1 patch transdermal Q24H 0RF nicotine [Nicoderm CQ] 14 mg/24 hr patch 24 hour 1 patch transdermal DAILY 0RF Discharge Instructions Instructions: Conjunctivitis (ED) Additional Instructions: If you have any new or worsening symptoms including severe eye discomfort, vision change or loss, severe headache, or other worrisome changes feel free to return immediately to the emergency department for reassessment. Otherwise as discussed use [id number] antihistamine such as Claritin or Zyrtec and if not improving in the next 3 to 4 days please follow-up with primary care provider or eye urgent care technician for reexamination. Discharge Data Discharge Date/Time-TO BE ENTERED AT DEPARTURE: 09/07/21 10:11 Medical Decision Making Bilateral mild conjunctivitis. Viral versus allergenic. Given that patient is stating yellowish drainage with increasing discomfort will place patient on antibiotic drops and patient encouraged to use [id number] antihistamine. Return and follow-up precautions were discussed with patient.. HPI General Mode of arrival: ambulatory . Date/Time Provider Initiated Documentation: 09/07/21 09:48 . Limitations to Documentation: no limitations . Information obtained by: patient . History of Present Illness 66 year old M presents to the emergency department with the chief complaint of Bilateral eye irritation and drainage, described as mild, with intensity rated at 2. Quality is described as burning (And itching), and is localized to the eyes. Patient reports no radiation. Patient started experiencing this day(s) (3) and it has been constant. improves with No relieving factors improve symptom(s), Other factors that worsen symptoms (Possible environmental or mold) . Patient notes no other symptoms.. Patient did receive the following treatments prior to arrival, other (Nwdx-pdp-etpwpfv eyedrops) Related Data Home Medications Medication Instructions Recorded Confirmed cyclobenzaprine 5 mg tablet 5 mg PO QHS PRN 05/02/21 09/07/21 loperamide 2 mg tablet 4 mg PO Q6H PRN tab 05/02/21 09/07/21 (Anti-Diarrheal (loperamide)) nicotine 14 mg/24 hr daily 1 patch TRANSDERMAL DAILY 05/02/21 09/07/21 transdermal patch (Nicoderm CQ) nicotine 7 mg/24 hr daily 1 patch TRANSDERMAL Q24H 05/02/21 09/07/21 transdermal patch (Nicoderm CQ) diazepam 5 mg tablet (Valium) 5 mg PO QID tab 05/13/21 09/07/21 pantoprazole 40 mg tablet,delayed 40 mg PO DAILY #90 tab 06/24/21 09/07/21 release (Protonix) polymyxin B sulfate 10,000 1 drp OPHTHALMIC (EYE) Q3H 7 Days 09/07/21 unit-trimethoprim 1 mg/mL eye drops #10 ml Previous Rx's Medication Instructions Recorded pantoprazole 40 mg tablet,delayed 40 mg PO DAILY #90 tab 06/24/21 release (Protonix) polymyxin B sulfate 10,000 1 drp OPHTHALMIC (EYE) Q3H 7 Days 09/07/21 unit-trimethoprim 1 mg/mL eye drops #10 ml Allergies Allergy/AdvReac Type Severity Reaction Status Date / Time haloperidol Allergy Severe Verified 09/07/21 09:42 General Stated Complaint: EyeProblem MONISHA: 4 Review of Systems Constitutional Constitutional: Denies chills, Denies fever(s) and Denies headache(s) Eyes Eyes: Reports as per HPI, Denies change in vision, Denies diplopia, Reports eye discharge, Reports itchy eyes and Denies loss of vision ENT Ears, Nose, Mouth, and Throat: Denies headache(s), Denies nasal congestion, Denies nasal discharge, Denies neck pain, Denies sinus pain and Denies sore throat Cardiovascular Cardiovascular: Denies chest pain Respiratory Respiratory: Denies chest congestion and Denies cough Musculoskeletal Musculoskeletal: Denies neck pain Integumentary/Breasts Skin/Breast: Denies rash Neurologic Neurologic: Denies headache(s) and Denies loss of vision Allergic/Immunologic Allergic/Immunologic: Reports itchy eyes PFSH All Active Problems Conjunctivitis (Acute) Hyperplastic colon polyp (Acute ~05/24/21) Kerns's esophagus (Acute ~05/2021) PTSD (post-traumatic stress disorder) (Acute) Hepatitis C (Acute) Elevated LFTs (Acute) Vertebral artery stenosis (Acute) <50% SANCHEZ (nonalcoholic steatohepatitis) (Acute) Spinal stenosis (Acute) Elevated LFTs (Acute) Chronic diarrhea (Acute) Syncope (Chronic) Melyssa (Acute) Medical History Back fracture Back pain Cancer determined by biopsy of tongue Chronic hepatitis C without mention of hepatic coma Diarrhea Elevated blood-pressure reading without diagnosis of hypertension IBS (irritable bowel syndrome) Leg cramps Overweight PTSD (post-traumatic stress disorder) Weight loss Surgical History History of colonoscopy with polypectomy (~05/24/21) History of esophagogastroduodenoscopy (EGD) (~05/24/21) History of surgery on extremity b/l forearm s/p trauma Social History Smoking/Tobacco Use Status: Current every day Tobacco Type: cigarettes Smoking risk assessment performed?: Yes Alcohol Intake: never Drug use: Never Substance use type: does not use Do you feel safe at home: Yes (building is unsafe) Do you feel safe in your relationship?: Yes Exam Const General: cooperative, comfortable and no acute distress Orientation: alert and awake [facility] Head: normal to inspection, normocephalic and atraumatic Ears: hearing grossly normal bilaterally General nose exam: external nose normal Face and sinus: no erythema Mouth: oral mucosae normal Throat: posterior oropharynx normal Eyes Visual Jacobs: normal visual jacobs by confrontation Alignment and Position: alignment normal Periorbital: periorbital findings normal Eyelids: eyelids normal Conjunctivae: conjunctival abnormality bilaterally conjunctival injection and discharge Sclera: sclerae normal Cornea: corneas normal Pupils: PERRL EOM: EOM intact bilaterally Neck Neck: normal visual inspection Resp Effort & Inspection: normal respiratory effort and able to speak in complete sentences Skin General skin exam: no rashes or lesions noted Neuro General: patient alert, patient awake, patient oriented x3, gait normal and moves all extremities Course Vital Signs Vital signs: Vital Signs Temperature 36.5 C 09/07/21 09:34 Pulse 95 H 09/07/21 09:34 Respiratory Rate 16 09/07/21 09:34 Blood Pressure 113/76 09/07/21 09:34 Pulse Oximetry 96 09/07/21 09:34 Temperature 36.5 C 09/07/21 09:34 Temperature Source Oral 09/07/21 09:34 Pulse 95 H 09/07/21 09:34 Respiratory Rate 16 09/07/21 09:34 Respiratory Effort 09/07/21 09:45 Blood Pressure 113/76 09/07/21 09:34 Blood Pressure Position Sitting 09/07/21 09:34 Pulse Oximetry 96 09/07/21 09:34 Oxygen Delivery Method Room Air 09/07/21 09:34 Oxygen Flow Rate 0 09/07/21 09:34 Pain Level 7 09/07/21 09:34
== END 2021-09-07 10:11 | disposition home or self-care (01) ==
PROVIDERS: Emergency Provider Nurse Practitioner Family; PCP Nurse Practitioner Family
DX: H10.33 Unspecified acute conjunctivitis, bilateral (principal)
CPT/HCPCS: 99283

== ENCOUNTER 2021-09-17 15:07 | Outpatient (REF) | payer MEDICARE, MEDICAID, SELFPAY ==
[2021-09-17 16:20] LABS: HCT 46.2 % (40.0-50.0); HGB 15.6 g/dL (13.5-17.5); MCH 32.1 pg (27.0-33.0); MCHC 33.8 % (32.0-36.0); MCV 95.1 fL (80-95); MPV 11.8 fL (8.0-11.0); Platelet Count 196 10^3/uL (130-400); RBC 4.86 10^6/uL (4.36-5.78); RDW 11.5 % (11.8-14.1); RDW-SD 40.5 fL
[2021-09-17 17:49] LABS: ALT 77 U/L (16-63); AST 34 U/L (15-37); Albumin 3.8 g/dL (3.4-5.0); Alkaline Phosphatase 145 U/L (46-116); Anion Gap 12.4 mmol/L (3-11); BUN 11 mg/dL (7-18); Bilirubin, Total 0.8 mg/dL (0.2-1.0); CO2 26.6 mmol/L (21.0-32.0); CREATININE 0.9 mg/dL (0.70-1.30); Calcium 8.8 mg/dL (8.5-10.1); Chloride 101 mmol/L (98-107); Glucose 100 mg/dL (74-106); Potassium 3.8 mmol/L (3.5-5.1); Sodium 140 mmol/L (136-145); Total Protein 7.4 g/dL (6.4-8.2)
== END 2021-09-17 15:08 | disposition home or self-care (01) ==
LOC: NCHCN 15:07
PROVIDERS: PCP Nurse Practitioner Family; Visit Provider Nurse Practitioner Family
DX: B18.2 Chronic viral hepatitis C (principal)
CPT/HCPCS: 80053; 85027

== ENCOUNTER 2021-09-23 18:48 | Outpatient (REF) | payer MEDICARE, MEDICAID, SELFPAY ==
[2021-09-23 17:00] LABS: HGB 15.1 g/dL (13.5-17.5); MCH 32.1 pg (27.0-33.0); MCHC 33.6 % (32.0-36.0); MCV 95.7 fL (80-95); MPV 11.9 fL (8.0-11.0); Platelet Count 203 10^3/uL (130-400); RDW 11.2 % (11.8-14.1); RDW-SD 40.2 fL; WBC 7.93 10^3/uL (4.4-10.8)
[2021-09-23 17:34] LABS: ALT 51 U/L (16-63); AST 30 U/L (15-37); Albumin 3.7 g/dL (3.4-5.0); Alkaline Phosphatase 143 U/L (46-116); Anion Gap 9.2 mmol/L (3-11); BUN 13 mg/dL (7-18); Bilirubin, Total 0.8 mg/dL (0.2-1.0); CO2 26.8 mmol/L (21.0-32.0); Calcium 8.7 mg/dL (8.5-10.1); Chloride 102 mmol/L (98-107); Glucose 119 mg/dL (74-106); Potassium 3.6 mmol/L (3.5-5.1); Sodium 138 mmol/L (136-145)
[2021-09-25 13:19] LABS: HCV RNA Detection Quantitative <15 IU/mL (Undetected); HCV RNA Qualitative Detected (Undetected)
== END 2021-09-23 18:49 | disposition home or self-care (01) ==
LOC: NCHCN 18:48
PROVIDERS: PCP Nurse Practitioner Family; Visit Provider Nurse Practitioner Family
DX: B18.2 Chronic viral hepatitis C (principal)
CPT/HCPCS: 80053; 85027; 87522

== ENCOUNTER 2021-10-21 16:34 | Outpatient (REF) | payer MEDICARE, MEDICAID, SELFPAY ==
[2021-10-23 11:32] LABS: Hepatitis C Ab w Rflx HCV PCR Reactive (Negative)
[2021-10-24 13:14] LABS: HCV RNA Qualitative Undetected (Undetected)
== END 2021-10-21 16:35 | disposition home or self-care (01) ==
LOC: NCHCN 16:34
PROVIDERS: PCP Nurse Practitioner Family; Visit Provider Family Medicine
DX: B18.2 Chronic viral hepatitis C (principal)
CPT/HCPCS: 86803; 87522

== ENCOUNTER 2021-11-02 09:32 | Emergency (ER) | payer MEDICARE, MEDICAID, SELFPAY ==
[2021-11-02 09:35] VITALS: BP 121/78; PULSE 94; RESP 17; TEMP 36.3; O2SAT 98
--- NOTE | 2021-11-02 09:43 | W.ED.GENAD ---
Discharge Plan Disposition Patient Disposition: HOME Condition: Stable Discharge Details Clinical Impression: Bilateral acute otitis media Primary Care Provider: Conchita Chung ED Provider: Catrachita Pascal Home Meds and New Rx's Prescriptions: New amoxicillin-pot clavulanate 875-125 mg tablet 1 tab PO BID 7 Days Qty: 14 0RF No Action pantoprazole [Protonix] 40 mg tablet,delayed release (DR/EC) 40 mg PO DAILY Qty: 90 4RF diazepam [Valium] 5 mg tablet 5 mg PO QID cyclobenzaprine 5 mg tablet 5 mg PO QHS PRN loperamide [Anti-Diarrheal (loperamide)] 2 mg tablet 4 mg PO Q6H PRN Discharge Instructions Instructions: Ear Infection (ED) Additional Instructions: Take the antibiotics twice daily as prescribed. Take with food. Do not put anything into the ears. Please take Ibuprofen with food every 4-6 hours as needed for pain and swelling. Follow up with primary care provider in 3-5 days. Return to ED sooner if any worsening or concerns. Increase oral fluids. Referrals: Conchita Chung [Primary Care Provider] - 1 week Medical Decision Making 66-year-old male presents to the ER with bilateral ear pain for the last 3 to 4 days. He reports he has increased cerumen buildup and usually is able to irrigated himself at home. 1034: Cerumen was irrigated by staffing associate. Able to visualize bilateral tympanic membranes without difficulty. Erythema noted no bulging. This text was generated using [employer] dictation system, please disregard any oddities of phrase or misspellings. HPI General Mode of arrival: ambulatory. Date/Time Provider Initiated Documentation: 11/02/21 09:32. Limitations to Documentation: no limitations. Information obtained by: patient and RN notes reviewed. HPI Narrative: 66-year-old male presents to the ER with bilateral ear pain for the last 3 to 4 days. He reports he has increased cerumen buildup and usually is able to irrigated himself at home. He reports increased pain throughout the day. Unable to visualize TMs bilaterally due to cerumen impaction. No other complaints. Past medical history include Pierre's esophagus, PTSD, hepatitis C, Benedict. Related Data Home Medications Medication Instructions Recorded Confirmed cyclobenzaprine 5 mg tablet 5 mg PO QHS PRN 05/02/21 11/02/21 loperamide 2 mg tablet 4 mg PO Q6H PRN 05/02/21 11/02/21 (Anti-Diarrheal (loperamide)) diazepam 5 mg tablet (Valium) 5 mg PO QID muscle spasm 05/13/21 11/02/21 pantoprazole 40 mg tablet,delayed 40 mg PO DAILY pierre's 06/24/21 11/02/21 release (Protonix) esophagitis #90 tabs amoxicillin 875 mg-potassium 1 tab PO BID 7 days #14 tabs 11/02/21 clavulanate 125 mg tablet Previous Rx's Medication Instructions Recorded pantoprazole 40 mg tablet,delayed 40 mg PO DAILY pierre's 06/24/21 release (Protonix) esophagitis #90 tabs amoxicillin 875 mg-potassium 1 tab PO BID 7 days #14 tabs 11/02/21 clavulanate 125 mg tablet Allergies Allergy/AdvReac Type Severity Reaction Status Date / Time haloperidol Allergy Severe Verified 11/02/21 09:37 General Stated Complaint: EarProblem MONISHA: 4 Review of Systems ENT Ears, Nose, Mouth, and Throat: Reports as per HPI and Reports otalgia PFSH All Active Problems (Updated 11/02/21 @ 10:33 by Catrachita Pascal) Bilateral acute otitis media (Acute) Hyperplastic colon polyp (Acute ~05/24/21) Pierre's esophagus (Acute ~05/2021) PTSD (post-traumatic stress disorder) (Acute) Hepatitis C (Acute) Elevated LFTs (Acute) Vertebral artery stenosis (Acute) <50% BENEDICT (nonalcoholic steatohepatitis) (Acute) Spinal stenosis (Acute) Elevated LFTs (Acute) Chronic diarrhea (Acute) Syncope (Chronic) Melyssa (Acute) Medical History Back fracture Back pain Cancer determined by biopsy of tongue Chronic hepatitis C without mention of hepatic coma Diarrhea Elevated blood-pressure reading without diagnosis of hypertension IBS (irritable bowel syndrome) Leg cramps Overweight PTSD (post-traumatic stress disorder) Weight loss Surgical History History of colonoscopy with polypectomy (~05/24/21) History of esophagogastroduodenoscopy (EGD) (~05/24/21) History of surgery on extremity b/l forearm s/p trauma Social History Smoking/Tobacco Use Status: Current every day Tobacco Type: cigarettes Smoking risk assessment performed?: Yes Alcohol Intake: never Drug use: Never Substance use type: does not use Do you feel safe at home: Yes (building is unsafe) Do you feel safe in your relationship?: Yes Exam HENMT Ears: TM abnormal (After Cerumen removal) erythematous bilaterally and unable to visualize TM bilaterally (Cerumen Impaction) Course Vital Signs Vital signs: Vital Signs Temperature 36.3 C L 11/02/21 09:35 Pulse 94 H 11/02/21 09:35 Respiratory Rate 17 11/02/21 09:35 Blood Pressure 121/78 11/02/21 09:35 Pulse Oximetry 98 11/02/21 09:35 Temperature 36.3 C L 11/02/21 09:35 Temperature Source Temporal Artery Scan 11/02/21 09:35 Pulse 94 H 11/02/21 09:35 Respiratory Rate 17 11/02/21 09:35 Blood Pressure 121/78 11/02/21 09:35 Blood Pressure Position Sitting 11/02/21 09:35 Pulse Oximetry 98 11/02/21 09:35 Oxygen Delivery Method Room Air 11/02/21 09:35 Oxygen Flow Rate 0 11/02/21 09:35 Pain Level 4 11/02/21 09:35
== END 2021-11-02 10:43 | disposition home or self-care (01) ==
PROVIDERS: Emergency Provider Registered Nurse Emergency; PCP Nurse Practitioner Family
DX: H66.93 Otitis media, unspecified, bilateral (principal)
CPT/HCPCS: 99283

== ENCOUNTER 2022-01-18 12:36 | Emergency (ER) | payer MEDICARE, MEDICAID, SELFPAY ==
[2022-01-18 12:39] VITALS: PULSE 125; RESP 16; TEMP 37.2; O2SAT 95
--- NOTE | 2022-01-18 13:17 | W.ED.GENAD ---
Discharge Plan Disposition Patient Disposition: HOME Condition: Stable Discharge Details Clinical Impression: Depression, Genny Primary Care Provider: Conchita Chung ED Provider: Chasity Valles Home Meds and New Rx's Prescriptions: Continued pantoprazole [Protonix] 40 mg tablet,delayed release (DR/EC) 40 mg PO DAILY Qty: 90 4RF diazepam [Valium] 5 mg tablet 5 mg PO QID cyclobenzaprine 5 mg tablet 5 mg PO QHS PRN loperamide [Anti-Diarrheal (loperamide)] 2 mg tablet 4 mg PO Q6H PRN Discharge Instructions Instructions: Depression (ED) Additional Instructions: Call your primary care doctor's office on Thursday to schedule a follow-up appointment for reevaluation and for medication management. Follow-up with [facility] at [phone] for re-evaluation. Return immediately to the emergency department if you develop any worsening or new concerning symptoms. Discharge Data Discharge Date/Time-TO BE ENTERED AT DEPARTURE: 01/18/22 23:58 Discharge Physician: Chasity Valles Medical Decision Making <Madan Schmidt NP - Last Filed: 01/19/22 15:13> Patient presenting to the emergency department via police for agitation and altered mental status. They state they were called to patient's place of residence this morning due to him contacting friends and informing them of his suicide. Patient reported that he was going to shoot himself but does not have a gun or access to 1 as far as police was concerned. Patient's speech and mental status has declined throughout the day causing them to bring him to the emergency department after attempting to [facility]. Review of systems is difficult to obtain due to patient's tangential circular speech pattern with difficulty focusing on questions at hand. Patient is irritated by police and security presents but he is cooperative with medical staff. Patient has not had any signs of physical aggression but has verbally been aggressive towards security and police. Physical exam does show dry mucous membranes, altered psychiatric state, otherwise no obvious findings. We will check patient's labs, give IV fluids, will give some Ativan to help with acute agitation and will check urine along with UDS. Pending lab results patient remained manic even after dose of Ativan was given. To help with acute genny will try Geodon to see if that helps patients genny. Review of labs show a unremarkable nondiagnostic CBC, CMP with only slightly elevated glucose of 120, negative ammonia, within normal range TSH, salicylate salicylates at 3.9 and undetectable acetaminophen and alcohol. Patient still pending urinalysis, and UDS. We will also perform head CT imaging now that patient is started become more calm and less manic to evaluate for any intracranial findings that could cause acute alteration in mental status/behavior [facility]: Care accepted from [facility] Schmidt pending U tox and mental health assessment, CT scan CT does not show evidence of acute abnormality Patient is now calm and cooperative although edentulous Urine tox is positive for THC and benzodiazepines which patient is prescribed Mental health was paged at approximately 6:00 and will present for assessment Patient is not worsening any suicidal ideation at this time Patient has been cooperative transition of care He received 5 mg of Valium at approximately 1030 per his request and he tolerated this well He is currently being evaluated by mental health will transition care to Dr Valles pending mental health assessment completion. 01/18/22 Dr. Valles Please see previous provider's note for initial presentation, exam, and plan. 2330 --patient evaluated by mental health and cleared for discharge to home. Patient is denying feeling suicidal or homicidal. Girlfriend feels comfortable and safe with him at home and will come to pick him up. Patient has been in contact with his primary care doctor's office for medication management. Patient instructed to follow-up with [facility] human services for reevaluation. Usual and customary return precautions given prior to discharge. Lab Data Lab results reviewed: Yes I reviewed the patient's lab results. <REBECA Perdomo - Last Filed: 01/19/22 09:59> Patient presenting to the emergency department via police for agitation and altered mental status. They state they were called to patient's place of residence this morning due to him contacting friends and informing them of his suicide. Patient reported that he was going to shoot himself but does not have a gun or access to 1 as far as police was concerned. Patient's speech and mental status has declined throughout the day causing them to bring him to the emergency department after attempting to contact the psychiatrist [facility]. Review of systems is difficult to obtain due to patient's tangential circular speech pattern with difficulty focusing on questions at hand. Patient is irritated by police and security presents but he is cooperative with medical staff. Patient has not had any signs of physical aggression but has verbally been aggressive towards security and police. Physical exam does show dry mucous membranes, altered psychiatric state, otherwise no obvious findings. We will check patient's labs, give IV fluids, will give some Ativan to help with acute agitation and will check urine along with UDS. Pending lab results patient remained manic even after dose of Ativan was given. To help with acute genny will try Silvio to see if that helps patients genny. Review of labs show a unremarkable nondiagnostic CBC, CMP with only slightly elevated glucose of 120, negative ammonia, within normal range TSH, salicylate salicylates at 3.9 and undetectable acetaminophen and alcohol. Patient still pending urinalysis, and UDS. We will also perform head CT imaging now that patient is started become more calm and less manic to evaluate for any intracranial findings that could cause acute alteration in mental status/behavior LB: Care accepted from [facility] Schmidt pending U tox and mental health assessment, CT scan CT does not show evidence of acute abnormality Patient is now calm and cooperative although edentulous Urine tox is positive for THC and benzodiazepines which patient is prescribed Mental health was paged at approximately 6:00 and will present for assessment Patient is not worsening any suicidal ideation at this time Patient has been cooperative transition of care He received 5 mg of Valium at approximately 1030 per his request and he tolerated this well He is currently being evaluated by mental health will transition care to Dr Valles pending mental health assessment completion <Chasity Valles, DO - Last Filed: 01/18/22 23:46> Patient presenting to the emergency department via police for agitation and altered mental status. They state they were called to patient's place of residence this morning due to him contacting friends and informing them of his suicide. Patient reported that he was going to shoot himself but does not have a gun or access to 1 as far as police was concerned. Patient's speech and mental status has declined throughout the day causing them to bring him to the emergency department after attempting to contact the psychiatrist [facility]. Review of systems is difficult to obtain due to patient's tangential circular speech pattern with difficulty focusing on questions at hand. Patient is irritated by police and security presents but he is cooperative with medical staff. Patient has not had any signs of physical aggression but has verbally been aggressive towards security and police. Physical exam does show dry mucous membranes, altered psychiatric state, otherwise no obvious findings. We will check patient's labs, give IV fluids, will give some Ativan to help with acute agitation and will check urine along with UDS. Pending lab results patient remained manic even after dose of Ativan was given. To help with acute genny will try Silvio to see if that helps patients genny. Review of labs show a unremarkable nondiagnostic CBC, CMP with only slightly elevated glucose of 120, negative ammonia, within normal range TSH, salicylate salicylates at 3.9 and undetectable acetaminophen and alcohol. Patient still pending urinalysis, and UDS. We will also perform head CT imaging now that patient is started become more calm and less manic to evaluate for any intracranial findings that could cause acute alteration in mental status/behavior LB: Care accepted from [facility] pending U tox and mental health assessment, CT scan CT does not show evidence of acute abnormality Patient is now calm and cooperative although edentulous Urine tox is positive for THC and benzodiazepines which patient is prescribed Mental health was paged at approximately 6:00 and will present for assessment Patient is not worsening any suicidal ideation at this time Patient has been cooperative transition of care He received 5 mg of Valium at approximately 1030 per his request and he tolerated this well He is currently being evaluated by mental health will transition care to Dr Valles pending mental health assessment completion. 01/18/22 Dr. Valles Please see previous provider's note for initial presentation, exam, and plan. 2330 --patient evaluated by mental health and cleared for discharge to home. Patient is denying feeling suicidal or homicidal. Girlfriend feels comfortable and safe with him at home and will come to pick him up. Patient has been in contact with his primary care doctor's office for medication management. Patient instructed to follow-up with [facility] human services for reevaluation. Usual and customary return precautions given prior to discharge. Medical Records Medical records reviewed: Yes I reviewed the patient's medical records. HPI <Madan Schmidt NP - Last Filed: 01/19/22 15:13> General Mode of arrival: EMS (Police ). Date/Time Provider Initiated Documentation: 01/18/22 12:41. Limitations to Documentation: altered mental status. Information obtained by: patient, police and RN notes reviewed. History of Present Illness 66 year old M presents to the emergency department with the chief complaint of AMS, described as moderate, Patient started experiencing this hour(s) (6) and it has been constant. Patient did receive the following treatments prior to arrival, none Related Data Home Medications Medication Instructions Recorded Confirmed cyclobenzaprine 5 mg tablet 5 mg PO QHS PRN 05/02/21 01/18/22 loperamide 2 mg tablet 4 mg PO Q6H PRN 05/02/21 01/18/22 (Anti-Diarrheal (loperamide)) diazepam 5 mg tablet (Valium) 5 mg PO QID muscle spasm 05/13/21 01/18/22 pantoprazole 40 mg tablet,delayed 40 mg PO DAILY pierre's 06/24/21 01/18/22 release (Protonix) esophagitis #90 tabs Previous Rx's Medication Instructions Recorded pantoprazole 40 mg tablet,delayed 40 mg PO DAILY pierre's 06/24/21 release (Protonix) esophagitis #90 tabs Allergies Allergy/AdvReac Type Severity Reaction Status Date / Time haloperidol Allergy Severe Verified 01/18/22 12:51 General Stated Complaint: PsychEval MONISHA: 2 Review of Systems <Madan Schmidt NP - Last Filed: 01/19/22 15:13> Unobtainable due to mental condition Neurologic Neurologic: Reports behavioral changes Psychiatric Psychiatric: Reports as per HPI, Reports behavioral changes, Reports paranoia and Reports suicidal ideation [facility] <Madan Schmidt NP - Last Filed: 01/19/22 15:13> All Active Problems (Updated 01/18/22 @ 23:42 by Chasity Valles DO) Depression (Chronic) Genny (Acute) Hyperplastic colon polyp (Acute ~05/24/21) Pierre's esophagus (Acute ~05/2021) PTSD (post-traumatic stress disorder) (Acute) Hepatitis C (Acute) Elevated LFTs (Acute) Vertebral artery stenosis (Acute) <50% SANCHEZ (nonalcoholic steatohepatitis) (Acute) Spinal stenosis (Acute) Elevated LFTs (Acute) Chronic diarrhea (Acute) Syncope (Chronic) Genny (Acute) Medical History Back fracture Back pain Cancer determined by biopsy of tongue Chronic hepatitis C without mention of hepatic coma Diarrhea Elevated blood-pressure reading without diagnosis of hypertension IBS (irritable bowel syndrome) Leg cramps Overweight PTSD (post-traumatic stress disorder) Weight loss Surgical History History of colonoscopy with polypectomy (~05/24/21) History of esophagogastroduodenoscopy (EGD) (~05/24/21) History of surgery on extremity b/l forearm s/p trauma Social History Smoking/Tobacco Use Status: Current every day Tobacco Type: cigarettes Smoking risk assessment performed?: Yes Alcohol Intake: never Drug use: Never Substance use type: does not use Do you feel safe at home: Yes (building is unsafe) Do you feel safe in your relationship?: Yes Exam <Madan Schmidt NP - Last Filed: 01/19/22 15:13> Const General: cooperative, anxious, combative (verbal only, And mainly towards police and security staff) and disheveled Orientation: alert and awake HENMT Head: normal to inspection, normocephalic and atraumatic Ears: hearing grossly normal bilaterally Mouth: moist mucous membranes abnormal (dry) Teeth and gingiva: edentulous Eyes General: appearance normal, both eyes and all related structures Pupils: PERRL EOM: EOM intact bilaterally Resp Effort & Inspection: normal respiratory effort, able to speak in complete sentences and no respiratory distress Auscultation: clear to auscultation bilaterally Cardio Rate: tachycardic Rhythm: regular rhythm Heart Sounds: S1 normal and S2 normal Neuro General: patient alert, patient awake, patient oriented x3, gait normal, moves all extremities and no focal motor deficits Psych Appearance: disheveled Speech and Movement: agitated and restless Mood: anxious mood, manic mood and irritable mood Affect: animated Attitude: cooperative Thought Process: flight of ideas and tangential Thought Content: obsessions Insight: poor Judgment: poor Course <Madan Schmidt NP - Last Filed: 01/19/22 15:13> Vital Signs Vital signs: Vital Signs Temperature 37.2 C 01/18/22 12:39 Pulse 125 H 08/06/22 12:39 Respiratory Rate 16 01/18/22 12:39 Pulse Oximetry 95 01/18/22 12:39 Temperature 37.2 C 01/18/22 12:39 Temperature Source Temporal Artery Scan 01/18/22 12:39 Pulse 125 H 01/18/22 12:39 Respiratory Rate 16 01/18/22 12:39 Respiratory Effort 01/18/22 12:49 Blood Pressure Position Sitting 01/18/22 12:39 Pulse Oximetry 95 01/18/22 12:39 Oxygen Delivery Method Room Air 01/18/22 12:39 Oxygen Flow Rate 0 01/18/22 12:39 Pain Level 10 01/18/22 12:39 Sign Out <Madan Schmidt NP - Last Filed: 01/19/22 15:13> Sign Out Data: Sign Out Comment: Patient pending CT head results along with urinalysis and UDS before medical clearance can be obtained. Patient resting comfortably in room now with lessened manic state. This medical clearance occurs suspect psychiatric evaluation Last updated by Madan Schmidt NP at 01/18/22 16:16 Sign Out Comment: pending MH assessment, genny, disorganized thoughts, received 1 mg silvio Brownlee, neelam this evening Last updated by Leslie Cortez PA at 01/18/22 23:18
[2022-01-18] MEDS: Normal Saline 1,000 ML 1000 ML IV (13:30)
[2022-01-18] MEDS: LORazepam 20 MG/10 ML VIAL IVP (13:35)
[2022-01-18 13:39] LABS: Abs Immature Grans 0.02 10^3/uL (0.0-0.06); Absolute Basophil Count 0.06 10^3/uL (0.0-0.2); Absolute Eosinophil Count 0.04 10^3/uL (0.0-0.7); Absolute Lymphocyte Count 1.02 10^3/uL (1.2-3.4); Absolute Monocyte Count 0.65 10^3/uL (0.1-0.8); Absolute Neutrophil Count 4.84 10^3/uL (1.2-6.7); Basophils % 0.9; Eosinophils % 0.6; HCT 43.8 % (40.0-50.0); HGB 14.9 g/dL (13.5-17.5); Immature Grans % 0.3; Lymphocytes % 15.4; MCH 31.6 pg (27.0-33.0); MCV 93 fL (80-95); MPV 10.5 fL (8.0-11.0); Monocytes % 9.8; Platelet Count 191 10^3/uL (130-400); RBC 4.72 10^6/uL (4.36-5.78); RDW 11.7 % (11.8-14.1); WBC 6.63 10^3/uL (4.4-10.8)
[2022-01-18 13:50] LABS: Ammonia < 10 umol/L (11-32)
[2022-01-18 14:07] LABS: ALT 25 U/L (16-63); AST 30 U/L (15-37); Albumin 4.3 g/dL (3.4-5.0); Alkaline Phosphatase 100 U/L (46-116); BUN 15 mg/dL (7-18); CREATININE 0.9 mg/dL (0.70-1.30); Calcium 9.1 mg/dL (8.5-10.1); Chloride 103 mmol/L (98-107); Glucose 120 mg/dL (74-106); Potassium 3.8 mmol/L (3.5-5.1); Sodium 140 mmol/L (136-145); TSH (W/Ref FT4) 0.44 uIU/mL (0.36-3.74); Total Protein 7.9 g/dL (6.4-8.2)
[2022-01-18 14:08] LABS: Salicylate 3.9 mg/dL (<2.8)
[2022-01-18 14:11] LABS: Acetaminophen < 2 ug/mL (10-30)
[2022-01-18] MEDS: Ziprasidone 20 MG VIAL IM (14:40)
[2022-01-18] MEDS: Water,Injection,Sterile 10 ML VIAL (14:40)
--- NOTE | 2022-01-18 14:50 | NUR.NOTE ---
Nursing Note: [facility] [phone] Dr. Valenzuela
[2022-01-18 15:13] LABS: ETHANOL BLOOD < 3.0 mg/dL (<10)
--- NOTE | 2022-01-18 15:30 | DI.CT_ITS ---
Exam(s) CT HEAD WO EXAM: CT HEAD WO CLINICAL HISTORY: ams. TECHNIQUE: Imaging Protocol: Axial computed tomography images with coronal and sagittal reformatted images were created and reviewed COMPARISON: CT CT BRAIN NECK CTA from 07/21/2019 FINDINGS: Ventricles and Extra axial spaces: Normal in size and morphology for the patient's age. Hemorrhage: None. Cerebral parenchyma: Mild atrophy. Mild white matter changes small vessel disease. Midline shift: None. Brainstem/Cerebellum: Normal. Calvarium: Normal. Visualized Paranasal sinuses/Mastoids: Clear. Soft Tissues: Unremarkable. IMPRESSION: No acute intracranial process. RADIATION DOSE DELIVERED: 847.68mGy.cm Total DLP DATA REPOSITORY: All CT scans at this facility are submitted to the National Radiology Data Registry (NRDR) Dose Index Registry (DIR) with the [employer] (ACR). RADIATION OPTIMIZATION: All CT scans at this facility use at least one of these dose optimization te chniques: automated exposure control; mA and/or kV adjustment per patient size (includes targeted exa ms where dose is matched to clinical indication); or iterative reconstruction.
--- NOTE | 2022-01-18 16:23 | DI.VRAD_ITS ---
PROCEDURE INFORMATION: Exam: CT Head Without Contrast Exam date and time: 01/18/2022 4:05 PM Age: 66 years old Clinical indication: Other: Altered mental status TECHNIQUE: Imaging protocol: Computed tomography of the head without contrast. COMPARISON: CT HEAD WO 09/18/2018 8:00 AM FINDINGS: Brain: Finnegan-white matter differentiation is within normal limits. No mass effect or midline shift. There are mild nonspecific patchy foci of periventricular white matter hypodensity, probably due to chronic microvascular ischemic changes. Sulci and basilar cisterns are prominent due to parenchymal volume loss. No extra-axial fluid collection. Cerebral ventricles: No ventriculomegaly. Paranasal sinuses: Visualized sinuses are unremarkable. No fluid levels. Mastoid air cells: Visualized mastoid air cells are well aerated. Bones/joints: No acute fracture. Soft tissues: Unremarkable. IMPRESSION: No acute intracranial abnormality. Dictated and Authenticated by: Ang Duron MD. Ordering:JOSSY Hager MD
[2022-01-18 17:30] LABS: Bilirubin Small (Negative); Blood Negative (Negative); Clarity Clear (Clear); Glucose Negative (Negative); Ketones 40 mg/dL (Negative); Leukocyte Esterase Negative (Negative); Nitrite Negative (Negative); Specific Gravity >= 1.030 (1.005-1.025); Urobilinogen 0.2 EU/dL (Up TO 0.2)
[2022-01-18 17:50] LABS: *AMPHETAMINES SCREEN URINE Negative (Negative); *BARBITURATES SCREEN URINE Negative (Negative); *BENZODIAZEPINES SCREEN URINE Positive (Negative); Cannabinoids THC Positive (Negative); Cocaine Screen,Urine Negative (Negative); METHADONE URINE SCREEN Negative (Negative); OPIATES URINE SCREEN Negative (Negative)
[2022-01-18 17:53] LABS: Tricyclic Antidepressants Negative (Negative)
[2022-01-18 18:30] VITALS: BP 130/78; PULSE 81; O2SAT 96
[2022-01-18 18:33] LABS: Source Nasal/Nares
[2022-01-18 19:16] LABS: COVID-19 PCR Negative (Negative)
[2022-01-18] MEDS: diazePAM 5 MG TAB PO (22:27)
--- NOTE | 2022-01-18 23:49 | PDOC.MHCN_ITS ---
Date of service: 01/18/22 Time of Service: 23:49 Mental Health Crisis Note Presenting Issue How did you arrive at the ED and why did you come: Client presented to the ED today via Hang after the girlfriend has spoken to a psychiatrist at [facility] in [place] who encouraged her to get him to the ED and possibly hospitalized. Precipitating Factors Client is denying SI and HI. I'm tenriism. I won't be able to go see my mom if I do that as he points to [place]. He is not showing signs of delusions at this time. Disposition BEHAVIOR: Client is cooperative and happy. He is very social. He wants to share his experiences of the day that brought him to the ED to include being served an order of no trespass which upset him and then having an argument with his neighbors this am who accused him of stating he was going to shoot himself. He does not have access to any firearms in the home. He sound this am and did still appear as if he was experiencing some genny. EYE CONTACT: Eye contact is steady and appropriate. MOOD: Client is happy and engaged. AFFECT: Clients affect is congruent with his mood. APPETITE: Client reported that he is eating well. SLEEP(trouble falling/staying asleep: Client reported that he does struggle with sleep. Plan Safety planning had to be done with his fiance as he was not able to do this due to the speech barrier this clinican had with him i.e. rapid speech and mumbled words due to his dry mouth and no dentures. Zonia reported no firearms in the home and that she was not feeling afraid of him today. She was comfortable with him returning home and would pick him up. He and the fiance both called his PCP office today and client reported that he intends to go to the doctors office on Thursday. Signature Clinician's Name/Title: Denise Crawley MS, [facility] Emergency Services Clinician, [facility]
== END 2022-01-18 23:58 | disposition home or self-care (01) ==
PROVIDERS: Nurse Practitioner Family; Physician Assistant; Emergency Provider Physician Assistant; PCP Nurse Practitioner Family
DX: F33.9 Major depressive disorder, recurrent, unspecified (principal); Z20.822 Contact with and (suspected) exposure to COVID-19; F17.210 Nicotine dependence, cigarettes, uncomplicated; R00.0 Tachycardia, unspecified; R41.82 Altered mental status, unspecified; Z79.899 Other long term (current) drug therapy
CPT/HCPCS: 36415; 80053; 80307; 87635; 96361; 96372; 96374; 99284; 99285; 70450; 80320; 80329; 81003; 82140; 84443; 85025; J3486; J3490

== ENCOUNTER 2022-02-02 08:44 | Emergency (ER) | payer MEDICARE, MEDICAID, SELFPAY ==
--- NOTE | 2022-02-02 08:45 | DI.RAD_ITS ---
Exam(s) XR WRIST LT COMPLETE EXAM: XR WRIST LT COMPLETE CLINICAL HISTORY: pain post injury TECHNIQUE: COMPARISON: No exams were available for comparison FINDINGS: Three views were obtained. There is plate and screw fixation in the ulnar diaphysis. There is no ev idence of acute fracture or dislocation. Carpal alignment appears within normal limits. IMPRESSION: RADIATION DOSE DELIVERED: Total DLP
--- NOTE | 2022-02-02 08:45 | DI.RAD_ITS ---
Exam(s) XR WRIST RT COMPLETE EXAM: XR WRIST RT COMPLETE CLINICAL HISTORY: wrist pain post injury TECHNIQUE: COMPARISON: CR,XR XR WRIST LT COMPLETE from 02/02/2022 FINDINGS: Three views were obtained. There is plate and screw fixation in the ulnar diaphysis. There is no ev idence of acute fracture or dislocation. The alignment of the carpus is unremarkable. IMPRESSION: RADIATION DOSE DELIVERED: Total DLP
[2022-02-02 08:48] VITALS: BP 171/92; PULSE 105; RESP 18; TEMP 37.2; O2SAT 98
--- NOTE | 2022-02-02 09:09 | ED.GENADUL_ITS ---
Discharge Plan Disposition Patient Disposition: HOME Condition: Stable Discharge Details Clinical Impression: Pain, wrist Primary Care Provider: Conchita Chung ED Provider: Leslie Cortez Home Meds and New Rx's Prescriptions: Continued diazepam [Valium] 5 mg tablet 5 mg PO QID cyclobenzaprine 5 mg tablet 5 mg PO QHS PRN loperamide [Anti-Diarrheal (loperamide)] 2 mg tablet 4 mg PO Q6H PRN pantoprazole [Protonix] 40 mg tablet,delayed release (DR/EC) 40 mg PO DAILY Qty: 90 4RF Discharge Instructions Additional Instructions: Please follow-up with your primary care physician and your counselor Take your medications as prescribed Take Tylenol as needed for discomfort Please follow-up with the provider listed below Referrals: Conchita Chung [Primary Care Provider] - 1 day Medical Decision Making X-rays do not show evidence of acute abnormality Patient is here for musculoskeletal complaints but is noted to be in likely a state of genny, he has known bipolar disorder I will refer him back to his PCP as I do not see that he is on any antipsychotic medications He is fully alert and oriented but emotionally labile, manic will be referred to his PCP to establish outpatient psychiatric referral, no clear indication for emergent, but more urgent referral He stable for discharge at this time of my assessment given the threshold to return with new or worsening complaints pt left the hospital prior to discussion regarding follow-up and xray interpretation Medical Records Medical records reviewed: Yes I reviewed the patient's medical records. HPI General Date/Time Provider Initiated Documentation: 02/02/22 08:46 . HPI Narrative: This 66-year-old male with history of bipolar, PTSD presents with report of bilateral wrist pain. He states he would hand cast last weekend and has had pain in his wrist since that time. He denies any additional complaints. He states the pain is exacerbated with movement. Describes the pain and exacerbated. Related Data Home Medications Medication Instructions Recorded Confirmed cyclobenzaprine 5 mg tablet 5 mg PO QHS PRN 05/02/21 02/02/22 loperamide 2 mg tablet 4 mg PO Q6H PRN 05/02/21 02/02/22 (Anti-Diarrheal (loperamide)) diazepam 5 mg tablet (Valium) 5 mg PO QID muscle spasm 05/13/21 02/02/22 pantoprazole 40 mg tablet,delayed 40 mg PO DAILY pierre's 01/30/22 02/02/22 release (Protonix) esophagitis #90 tabs Previous Rx's Medication Instructions Recorded pantoprazole 40 mg tablet,delayed 40 mg PO DAILY pierre's 01/30/22 release (Protonix) esophagitis #90 tabs Allergies Allergy/AdvReac Type Severity Reaction Status Date / Time haloperidol Allergy Severe Verified 01/18/22 12:51 General Stated Complaint: Orthopedic MONISHA: 4 Review of Systems Narrative: Review of systems obtained x3 and negative aside from indication in HPI PFSH All Active Problems (Updated 02/02/22 @ 09:18 by REBECA Perdomo) Depression (Chronic) Genny (Acute) Pain, wrist (Acute) Hyperplastic colon polyp (Acute ~05/24/21) Pierre's esophagus (Acute ~05/2021) PTSD (post-traumatic stress disorder) (Acute) Hepatitis C (Acute) Elevated LFTs (Acute) Vertebral artery stenosis (Acute) <50% SANCHEZ (nonalcoholic steatohepatitis) (Acute) Spinal stenosis (Acute) Elevated LFTs (Acute) Chronic diarrhea (Acute) Syncope (Chronic) Genny (Acute) Medical History Back fracture Back pain Cancer determined by biopsy of tongue Chronic hepatitis C without mention of hepatic coma Diarrhea Elevated blood-pressure reading without diagnosis of hypertension IBS (irritable bowel syndrome) Leg cramps Overweight PTSD (post-traumatic stress disorder) Weight loss Surgical History History of colonoscopy with polypectomy (~05/24/21) History of esophagogastroduodenoscopy (EGD) (~05/24/21) History of surgery on extremity b/l forearm s/p trauma Social History Smoking/Tobacco Use Status: Current every day Tobacco Type: cigarettes Smoking risk assessment performed?: Yes Alcohol Intake: never Drug use: Never Substance use type: does not use Do you feel safe at home: Yes (building is unsafe) Do you feel safe in your relationship?: Yes Exam Const Other: agitated Resp Effort & Inspection: normal respiratory effort Skin General skin exam: no rashes or lesions noted Neuro General: patient alert and patient oriented x3 Gait: normal gait Extrem Other: Tenderness to bilateral wrist, neurovascularly intact, no bruising or edema Psych Appearance: well kempt Speech and Movement: speech and movement normal Mood: manic mood Affect: animated Attitude: cooperative Thought Process: flight of ideas Thought Content: compulsions Insight: fair Judgment: fair Course Vital Signs Vital signs: Vital Signs Temperature 37.2 C 02/02/22 08:48 Pulse 105 H 02/02/22 08:48 Respiratory Rate 18 02/02/22 08:48 Blood Pressure 171/92 H 02/02/22 08:48 Pulse Oximetry 98 02/02/22 08:48 Temperature 37.2 C 02/02/22 08:48 Temperature Source Tympanic 02/02/22 08:48 Pulse 105 H 02/02/22 08:48 Respiratory Rate 18 02/02/22 08:48 Blood Pressure 171/92 H 02/02/22 08:48 Blood Pressure Position Sitting 02/02/22 08:48 Pulse Oximetry 98 02/02/22 08:48 Oxygen Delivery Method Room Air 02/02/22 08:48 Oxygen Flow Rate 0 02/02/22 08:48 Pain Level 6 02/02/22 08:48
--- NOTE | 2022-02-02 09:21 | NUR.NOTE ---
Referral faxed to PCP for bipolar/not taking meds; DOUGLAS. Nursing Note:
--- NOTE | 2022-02-02 09:28 | DI.VRAD_ITS ---
PROCEDURE INFORMATION: Exam: XR Right Wrist Exam date and time: 02/02/2022 9:08 AM Age: 66 years old Clinical indication: Injury or trauma; Fall; Blunt trauma (contusions or hematomas); Right; Injury details: Wrist pain post injury post surgery TECHNIQUE: Imaging protocol: Radiologic exam of the Right wrist. Views: 3 or more views. COMPARISON: No relevant prior studies available. FINDINGS: Bones/joints: There is screw and plate fixation of a healed right distal ulnar fracture. There is no acute fracture or dislocation. Osseous structures are otherwise normal. Joint spaces are maintained. Soft tissues: Normal. IMPRESSION: No acute findings. Hardware fixation right distal ulna. Dictated and Authenticated by: Marv Cadena MD. Ordering:JO Nelson MD
--- NOTE | 2022-02-02 09:29 | DI.VRAD_ITS ---
PROCEDURE INFORMATION: Exam: XR Left Wrist Exam date and time: 02/02/2022 9:06 AM Age: 66 years old Clinical indication: Injury or trauma; Fall; Blunt trauma (contusions or hematomas); Left; Injury details: Wrist pain post injury post surgery TECHNIQUE: Imaging protocol: Radiologic exam of the Left wrist. Views: 3 or more views. COMPARISON: No relevant prior studies available. FINDINGS: Bones/joints: There is screw and plate fixation of a healed left distal ulnar fracture. There is no acute fracture or dislocation. Osseous structures are otherwise normal. Joint spaces are maintained. Soft tissues: Normal. IMPRESSION: No acute osseous pathology. Hardware fixation left distal ulna. Dictated and Authenticated by: Marv Cadena MD. Ordering:JO Nelson MD
--- NOTE | 2022-02-02 09:51 | NUR.NOTE ---
Nursing Note: Patient eloped from ED waiting room after having x-rays and being offered tylenol which he refused.
== END 2022-02-02 09:48 | disposition home or self-care (01) ==
PROVIDERS: Emergency Provider Physician Assistant; PCP Nurse Practitioner Family
DX: M25.531 Pain in right wrist (principal); M25.532 Pain in left wrist; F31.9 Bipolar disorder, unspecified; F17.210 Nicotine dependence, cigarettes, uncomplicated
CPT/HCPCS: 99283; 73110; 99284

== ENCOUNTER 2022-06-04 07:33 | Emergency (ER) | payer MEDICARE, MEDICAID, SELFPAY ==
[2022-06-04 07:37] VITALS: BP 155/82; PULSE 95; RESP 16; TEMP 36.6; O2SAT 96
[2022-06-04] MEDS: oxyCODONE 5 mg/Acetaminophen 325 mg TAB 1 TAB PO (08:25)
--- NOTE | 2022-06-04 08:35 | DI.RAD_ITS ---
Exam(s) XR KNEE LT 3V AP,LAT,ALFREDO EXAM: XR KNEE LT 3V AP,LAT,ALFREDO CLINICAL HISTORY: pain medially, twist and pop. TECHNIQUE: 2D digital imaging was performed. COMPARISON: No exams were available for comparison FINDINGS: Three views: No evidence of obvious acute fracture. However, on AP weightbearing view there is a 3 x 2 millimeter osteophytic density seen adjacent to the medial aspect of the proximal tibia, possibly an avulsion i njury. This would be in the region of the MCL. There also appears to be a joint effusion. No obvio us tibial plateau fracture. No joint space narrowing but there is mild chondrocalcinosis evident in the medial lateral compartments. IMPRESSION: There is a 3 x 2 millimeter osteophytic density adjacent to the medial aspect of the proximal tibia, possibly an avulsion injury. This would be in the region of the medial collateral ligament. Correla tion with site of tenderness is recommended. No other significant osseous findings. Joint effusion noted. DATA REPOSITORY: RADIATION DOSE DELIVERED:
--- NOTE | 2022-06-04 08:57 | W.ED.GENAD ---
Discharge Plan Disposition Patient Disposition: Home Condition: Stable Discharge Details Clinical Impression: Internal derangement of knee, Effusion of knee Primary Care Provider: Conchita Chung ED Provider: Leslie Cortez Home Meds and New Rx's Prescriptions: New oxycodone 5 mg capsule 5 mg PO Q8H PRNQty: 6 0RF Continued diazepam [Valium] 5 mg tablet 5 mg PO QID cyclobenzaprine 5 mg tablet 5 mg PO QHS PRN loperamide [Anti-Diarrheal (loperamide)] 2 mg tablet 4 mg PO Q6H PRN pantoprazole [Protonix] 40 mg tablet,delayed release (DR/EC) 40 mg PO DAILY Qty: 90 4RF Discharge Instructions Additional Instructions: Ice, ibuprofen every 8 hours with food Tylenol 650 mg every 4 hours as needed for breakthrough pain Oxycodone sparingly, this is addictive Keep your brace in place and follow-up with orthopedics tomorrow to schedule follow-up Return earlier should he have new or worsening complaints Referrals: Theodore Bauer MD [ [facility] STAFF PHYSICIAN] - Discharge Data Discharge Date/Time-TO BE ENTERED AT DEPARTURE: 06/04/22 09:27 Medical Decision Making Patient with reported injury to left knee described to arrival X-ray ordered to further evaluate, evidence of possible avulsion fracture to medial knee likely consistent with MCL tear Effusion noted on x-ray per radiology interpretation my review Placed in utilizer Given crutches Given slight amount of pain medication, opiate analgesia, risk of addiction reviewed Ambulated with a steady although antalgic gait at time of discharge home Referral orthopedics Return precautions discussed and patient expressed understanding Medical Records Medical records reviewed: Yes I reviewed the patient's medical records. HPI General Date/Time Provider Initiated Documentation: 06/04/22 08:04. HPI Narrative: This 67-year-old gentleman with recent history of hepatitis C, Pierre's obvious, vertebral artery stenosis presents with reports of left knee injury. He stepped down off a ladder and twisted and planted his knee simultaneously. He felt a pop and instant pain was unable to ambulate secondary to discomfort. He denies any additional injuries. Denies history of coagulopathy. Event occurred just prior to arrival. Related Data Home Medications Medication Instructions Recorded Confirmed cyclobenzaprine 5 mg tablet 5 mg PO QHS PRN 05/02/21 06/04/22 loperamide 2 mg tablet 4 mg PO Q6H PRN 05/02/21 06/04/22 (Anti-Diarrheal (loperamide)) diazepam 5 mg tablet (Valium) 5 mg PO QID muscle spasm 05/13/21 06/04/22 pantoprazole 40 mg tablet,delayed 40 mg PO DAILY pierre's 01/30/22 06/04/22 release (Protonix) esophagitis #90 tabs oxycodone 5 mg capsule 5 mg PO Q8H PRN #6 caps 06/04/22 Previous Rx's Medication Instructions Recorded pantoprazole 40 mg tablet,delayed 40 mg PO DAILY pierre's 01/30/22 release (Protonix) esophagitis #90 tabs oxycodone 5 mg capsule 5 mg PO Q8H PRN #6 caps 06/04/22 Allergies Allergy/AdvReac Type Severity Reaction Status Date / Time haloperidol Allergy Severe Verified 06/04/22 07:46 General Stated Complaint: Orthopedic MONISHA: 4 Review of Systems All systems reviewed & are unremarkable except as noted in HPI and below PFSH All Active Problems (Updated 06/04/22 @ 09:02 by REBECA Perdomo) Internal derangement of knee (Acute) Effusion of knee (Acute) Hyperplastic colon polyp (Acute ~05/24/21) Pierre's esophagus (Acute ~05/2021) PTSD (post-traumatic stress disorder) (Acute) Hepatitis C (Acute) Elevated LFTs (Acute) Vertebral artery stenosis (Acute) <50% SANCHEZ (nonalcoholic steatohepatitis) (Acute) Spinal stenosis (Acute) Elevated LFTs (Acute) Chronic diarrhea (Acute) Syncope (Chronic) Melyssa (Acute) Medical History Back fracture Back pain Cancer determined by biopsy of tongue Chronic hepatitis C without mention of hepatic coma Diarrhea Elevated blood-pressure reading without diagnosis of hypertension IBS (irritable bowel syndrome) Leg cramps Overweight PTSD (post-traumatic stress disorder) Weight loss Surgical History History of colonoscopy with polypectomy (~05/24/21) History of esophagogastroduodenoscopy (EGD) (~05/24/21) History of surgery on extremity b/l forearm s/p trauma Social History Smoking/Tobacco Use Status: Current every day Tobacco Type: cigarettes Smoking risk assessment performed?: Yes Alcohol Intake: never Drug use: Never Substance use type: does not use Do you feel safe at home: Yes (building is unsafe) Do you feel safe in your relationship?: Yes Exam Const General: cooperative, comfortable and no acute distress Extrem Other: Patient with tenderness medially, slight swelling to the knee, likely consistent with effusion, pending exam secondary discomfort but mild laxity with lateral compression No tenderness to left hip or left ankle, calf nontender Course Vital Signs Vital signs: Vital Signs Temperature 36.6 C 06/04/22 07:37 Pulse 95 H 06/04/22 07:37 Respiratory Rate 16 06/04/22 07:37 Blood Pressure 155/82 H 06/04/22 07:37 Pulse Oximetry 96 06/04/22 07:37 Temperature 36.6 C 06/04/22 07:37 Temperature Source Oral 06/04/22 07:37 Pulse 95 H 06/04/22 07:37 Respiratory Rate 16 06/04/22 07:37 Respiratory Effort 06/04/22 07:39 Blood Pressure 155/82 H 06/04/22 07:37 Blood Pressure Position Sitting 06/04/22 07:37 Pulse Oximetry 96 06/04/22 07:37 Oxygen Delivery Method Room Air 06/04/22 07:37 Oxygen Flow Rate 0 06/04/22 07:37 Pain Level 10 06/04/22 08:25
--- NOTE | 2022-06-05 09:44 | NUR.NOTE ---
Nursing Note: Accessed pt chart to confirm no provider note and to get the discharge diagnosis. Dr. Ceballos called asking that provider; Leslie Cortez, either call him or do a note so that he can determine follow up for patient.
--- NOTE | 2022-06-07 09:08 | NUR.NOTE ---
Nursing Note: Accessed chart for [facility] billing purposes.
== END 2022-06-04 09:27 | disposition home or self-care (01) ==
PROVIDERS: Emergency Provider Physician Assistant; PCP Nurse Practitioner Family
DX: M23.92 Unspecified internal derangement of left knee (principal); M25.462 Effusion, left knee; S89.92XA Unspecified injury of left lower leg, initial encounter; X50.1XXA Overexertion from prolonged static or awkward postures, initial encounter
CPT/HCPCS: 73562; 99283

== ENCOUNTER 2023-03-01 14:17 | Emergency (ER) | payer MEDICARE, MEDICAID, SELFPAY ==
[2023-03-01 14:20] VITALS: BP 128/84; PULSE 86; RESP 18; TEMP 36.5; O2SAT 98
--- NOTE | 2023-03-01 14:55 | ED.GENADUL_ITS ---
Discharge Plan Disposition Patient Disposition: Home Discharge Details Clinical Impression: Cellulitis Primary Care Provider: Conchita Chung ED Provider: Madan Schmidt Home Meds and New Rx's Prescriptions: New cephalexin 500 mg tablet 500 mg PO QID 5 Days Qty: 20 0RF Continued diazepam [Valium] 5 mg tablet 5 mg PO QID loperamide [Anti-Diarrheal (loperamide)] 2 mg tablet 4 mg PO Q6H PRN pantoprazole [Protonix] 40 mg tablet,delayed release (DR/EC) 40 mg PO DAILY Qty: 90 4RF Discharge Instructions Instructions: Cellulitis (ED) Additional Instructions: Please take antibiotics as prescribed and for the full course of medication. It is recommended that you stop use of Neosporin as this may be causing some secondary irritation around the wound. It is recommended that you continue to monitor your symptoms, and follow-up with your primary care provider if not improving. Any new or significant worsening feel free to return the emergency department for reassessment Referrals: Conchita Chung [Primary Care Provider] - 3 days (If not improving) Medical Decision Making Patient presenting to the emergency department for chief complaint of right arm wound. Patient reports this has been going on for the past week and has not improved and is slightly worsening with discomfort and redness. Patient denies any systemic symptoms. Patient has history of anxiety, PTSD, hepatitis, spinal stenosis. Patient has no allergies to antibiotics. He does state he has been using Neosporin and hydrogen peroxide to the wound. Physical exam shows an abrasion to the right forearm with surrounding erythema. Exam is otherwise unremarkable. I am concerned for cellulitis and delayed wound healing. We will place patient on Keflex. There is a consideration of possible surrounding irritation is secondary to reaction to Neosporin but will treat again with antibiotics given that the wound is not healing. After discussion of diagnosis and plan of care patient has no further needs, questions, or concerns and states clear understanding to return to the emergency department for any worsening symptoms. This documentation was generated using [employer] system, please disregard any oddities of phrase or misspellings. HPI General Mode of arrival: ambulatory . Date/Time Provider Initiated Documentation: 03/01/23 14:25 . Limitations to Documentation: no limitations . Information obtained by: patient and RN notes reviewed . History of Present Illness 67 year old M presents to the emergency department with the chief complaint of Right forearm infection, described as moderate, and is localized to the right and upper extremity. Patient started experiencing this week(s) (1) and it has been constant. No relieving factors improve symptom(s), No exacerbating factors reported . Patient notes no other symptoms.. Patient did receive the following treatments prior to arrival, other (Neosporin and wound cleaning) Related Data Home Medications Medication Instructions Recorded Confirmed loperamide 2 mg tablet 4 mg PO Q6H PRN 05/02/21 03/01/23 (Anti-Diarrheal (loperamide)) diazepam 5 mg tablet (Valium) 5 mg PO QID muscle spasm 05/13/21 03/01/23 pantoprazole 40 mg tablet,delayed 40 mg PO DAILY pierre's 01/30/22 03/01/23 release (Protonix) esophagitis #90 tabs cephalexin 500 mg tablet 500 mg PO QID 5 days #20 tabs 03/01/23 Previous Rx's Medication Instructions Recorded pantoprazole 40 mg tablet,delayed 40 mg PO DAILY pierre's 01/30/22 release (Protonix) esophagitis #90 tabs cephalexin 500 mg tablet 500 mg PO QID 5 days #20 tabs 03/01/23 Allergies Allergy/AdvReac Type Severity Reaction Status Date / Time haloperidol Allergy Severe Verified 03/01/23 14:25 General Stated Complaint: Cellulitis MONISHA: 4 Review of Systems Constitutional Constitutional: Denies fever(s) Musculoskeletal Musculoskeletal: Denies arthralgias and Denies joint swelling Integumentary/Breasts Skin/Breast: Reports as per HPI, Reports erythema and Reports skin pain PFSH All Active Problems Cellulitis (Acute) Hyperplastic colon polyp (Acute ~05/24/21) Pierre's esophagus (Acute ~05/2021) PTSD (post-traumatic stress disorder) (Acute) Hepatitis C (Acute) Elevated LFTs (Acute) Vertebral artery stenosis (Acute) <50% SANCHEZ (nonalcoholic steatohepatitis) (Acute) Spinal stenosis (Acute) Elevated LFTs (Acute) Chronic diarrhea (Acute) Syncope (Chronic) Melyssa (Acute) Medical History Back fracture Back pain Cancer determined by biopsy of tongue Chronic hepatitis C without mention of hepatic coma Diarrhea Elevated blood-pressure reading without diagnosis of hypertension IBS (irritable bowel syndrome) Leg cramps Overweight PTSD (post-traumatic stress disorder) Weight loss Surgical History History of colonoscopy with polypectomy (~05/24/21) History of esophagogastroduodenoscopy (EGD) (~05/24/21) History of surgery on extremity b/l forearm s/p trauma Social History Smoking/Tobacco Use Status: Current every day Tobacco Type: cigarettes Smoking risk assessment performed?: Yes Alcohol Intake: never Drug use: Never Substance use type: does not use Do you feel safe at home: Yes (building is unsafe) Do you feel safe in your relationship?: Yes Exam Const General: cooperative, no acute distress and not ill appearing Orientation: alert, awake and oriented x3 HENMT Mouth: moist mucous membranes Resp Effort & Inspection: normal respiratory effort, able to speak in complete sentences and no respiratory distress Cardio Rate: regular rate Rhythm: regular rhythm Heart Sounds: S1 normal and S2 normal Neuro General: patient alert, patient awake, patient oriented x3, moves all extremities and no focal motor deficits Sensory Exam: no sensory deficits noted Extrem General: normal exam except as noted Right upper extremity: elbow/forearm Details: abrasion (With surrounding erythema) forearm mid anterior Details: single Course Vital Signs Vital signs: Vital Signs Temperature 36.5 C 03/01/23 14:20 Pulse 86 03/01/23 14:20 Respiratory Rate 18 03/01/23 14:20 Blood Pressure 128/84 03/01/23 14:20 Pulse Oximetry 98 03/01/23 14:20 Temperature 36.5 C 03/01/23 14:20 Temperature Source Skin 03/01/23 14:20 Pulse 86 03/01/23 14:20 Respiratory Rate 18 03/01/23 14:20 Respiratory Effort Normal 03/01/23 14:26 Blood Pressure 128/84 03/01/23 14:20 Blood Pressure Position Sitting 03/01/23 14:20 Pulse Oximetry 98 03/01/23 14:20 Oxygen Delivery Method Room Air 03/01/23 14:20 Oxygen Flow Rate 0 03/01/23 14:20 Pain Level 7 03/01/23 14:20 Comment taking tylenol and ibuprofen 03/01/23 14:20
[2023-03-01] MEDS: Cephalexin 500 MG CAP PO (15:10)
== END 2023-03-01 15:19 | disposition home or self-care (01) ==
PROVIDERS: Emergency Provider Nurse Practitioner Family; PCP Nurse Practitioner Family
DX: L03.90 Cellulitis, unspecified (principal)
CPT/HCPCS: 99283; 99284

== ENCOUNTER 2023-10-29 16:30 | Outpatient (REF) | payer OTHER, SELFPAY ==
[2023-10-29 21:21] LABS: HCT 42.9 % (40.0-50.0); HGB 14.3 g/dL (13.5-17.5); MCHC 33.3 % (32.0-36.0); MCV 96 fL (80-95); MPV 11.1 fL (8.0-11.0); Platelet Count 191 10^3/uL (130-400); RBC 4.47 10^6/uL (4.36-5.78); RDW 12.3 % (11.8-14.1); RDW-SD 43.8 fL; WBC 6.74 10^3/uL (4.4-10.8)
[2023-10-29 21:38] LABS: ALT 23 U/L (16-63); AST 14 U/L (15-37); Albumin 4.2 g/dL (3.4-5.0); Alkaline Phosphatase 91 U/L (46-116); Anion Gap 10.6 mmol/L (3-11); BUN 20 mg/dL (7-18); Bilirubin, Total 0.5 mg/dL (0.2-1.0); CO2 29.4 mmol/L (21.0-32.0); Calculated LDL 99 mg/dL (<100); Chloride 102 mmol/L (98-107); Cholesterol 207 mg/dL (<200); Estimated GFR 80.97 (mL/min/1.73m2); Glucose 98 mg/dL (74-106); HDL Cholesterol 97 mg/dL (40-60); Potassium 3.9 mmol/L (3.5-5.1); Sodium 142 mmol/L (136-145); Total Protein 7.1 g/dL (6.4-8.2); Triglyceride 55 mg/dL (<150)
[2023-10-30 18:32] LABS: PSA, Screening 0.4 ng/mL (<=6.5)
== END 2023-10-29 16:31 | disposition home or self-care (01) ==
LOC: NCHCN 16:30
PROVIDERS: PCP Nurse Practitioner Family; Visit Provider Nurse Practitioner Family
DX: E66.3 Overweight (principal); Z12.5 Encounter for screening for malignant neoplasm of prostate
CPT/HCPCS: 80053; 80061; 84153; 85027

== ENCOUNTER 2023-11-09 12:04 | Emergency (ER) | payer OTHER, SELFPAY ==
[2023-11-09 12:02] VITALS: BP 134/81; PULSE 75; RESP 20; TEMP 36.5; O2SAT 93
[2023-11-09 12:49] LABS: Abs Immature Grans 0.04 10^3/uL (0.0-0.06); Absolute Basophil Count 0.07 10^3/uL (0.0-0.2); Absolute Eosinophil Count 0.18 10^3/uL (0.0-0.7); Absolute Lymphocyte Count 1.45 10^3/uL (1.2-3.4); Absolute Monocyte Count 0.39 10^3/uL (0.1-0.8); Absolute Neutrophil Count 3.65 10^3/uL (1.2-6.7); Basophils % 1.2 %; Eosinophils % 3.1 %; HCT 42.5 % (40.0-50.0); HGB 14.5 g/dL (13.5-17.5); Immature Grans % 0.7 %; Lymphocytes % 25.1 %; MCH 32.2 pg (27.0-33.0); MCHC 34.1 % (32.0-36.0); MCV 94 fL (80-95); MPV 9.3 fL (8.0-11.0); Monocytes % 6.7 %; Neutrophils % 63.2 %; Platelet Count 191 10^3/uL (130-400); RBC 4.51 10^6/uL (4.36-5.78); RDW 12.3 % (11.8-14.1); RDW-SD 42.9 fL; WBC 5.78 10^3/uL (4.4-10.8)
[2023-11-09 13:05] LABS: ALT 23 U/L (16-63); AST 18 U/L (15-37); Albumin 3.9 g/dL (3.4-5.0); Alkaline Phosphatase 97 U/L (46-116); Anion Gap 12.1 mmol/L (3-11); BUN 15 mg/dL (7-18); Bilirubin, Total 0.6 mg/dL (0.2-1.0); CO2 24.9 mmol/L (21.0-32.0); CREATININE 0.9 mg/dL (0.70-1.30); Calcium 8.4 mg/dL (8.5-10.1); Chloride 98 mmol/L (98-107); ETHANOL BLOOD 178.6 mg/dL (<10); Estimated GFR 91.88 (mL/min/1.73m2); Glucose 126 mg/dL (74-106); Potassium 3.8 mmol/L (3.5-5.1); Sodium 135 mmol/L (136-145); Total Protein 7.2 g/dL (6.4-8.2)
--- NOTE | 2023-11-09 14:15 | W.ED.GENAD ---
Discharge Plan Disposition Patient Disposition: Home Condition: Stable Discharge Details Clinical Impression: Alcohol intoxication Primary Care Provider: Conchita Chung ED Provider: Heri Rivera Home Meds and New Rx's Prescriptions: No Action diazepam [Valium] 5 mg tablet 5 mg PO QID loperamide [Anti-Diarrheal (loperamide)] 2 mg tablet 4 mg PO Q6H PRN pantoprazole 40 mg tablet,delayed release (DR/EC) See Rx Instructions .ROUTE .COMPLEX Qty: 90 4RF Dose Instruction: TAKE 1 TABLET (40MG) BY MOUTH DAILY FOR BARRETTS ESOPHAGITIS Rx Instructions: TAKE 1 TABLET (40MG) BY MOUTH DAILY FOR BARRETTS ESOPHAGITIS Discharge Instructions Instructions: Alcohol Intoxication (ED) Additional Instructions: You were seen today for alcohol intoxication. Your blood alcohol level was 178. Please stop abusing alcohol. Attempts made to a contact family member to allow for safe discharge were unsuccessful. You refused to stay in the emergency department for observation. You are being discharged to a public inebriation monitoring site. Medication reconciliation could not be performed today. Please be sure to discuss your medications with your doctor and take medications as prescribed. Please contact your primary care physician to arrange follow-up. Return to the ER immediately for any worsening or new concerning symptoms. Referrals: Conchita Chung [Primary Care Provider] - Discharge Data Discharge Date/Time-TO BE ENTERED AT DEPARTURE: 11/09/23 14:27 HPI General Mode of arrival: EMS. Date/Time Provider Initiated Documentation: 11/09/23 12:05. Limitations to Documentation: altered mental status. Information obtained by: patient and EMS. HPI Narrative: 68-year-old male presents with altered mental status. Patient notes consuming alcohol today. EMS note patient was found on the ground. He does have a seizure disorder and notes that he may have had a seizure today. Patient denies pain. He has no complaints and requests discharge. Related Data Home Medications Medication Instructions Recorded Confirmed loperamide 2 mg tablet 4 mg PO Q6H PRN 05/02/21 03/01/23 (Anti-Diarrheal (loperamide)) diazepam 5 mg tablet (Valium) 5 mg PO QID muscle spasm 05/13/21 03/01/23 pantoprazole 40 mg tablet,delayed See Rx Instructions .Route 04/15/23 release .COMPLEX #90 tabs Previous Rx's Medication Instructions Recorded pantoprazole 40 mg tablet,delayed See Rx Instructions .Route 04/15/23 release .COMPLEX #90 tabs Allergies Allergy/AdvReac Type Severity Reaction Status Date / Time haloperidol Allergy Severe Verified 03/01/23 14:25 General Stated Complaint: Seizure MONISHA: 3 Review of Systems Constitutional Constitutional: Denies fever(s) and Denies headache(s) ENT Ears, Nose, Mouth, and Throat: Denies headache(s) Cardiovascular Cardiovascular: Denies chest pain and Denies dyspnea Respiratory Respiratory: Denies dyspnea Gastrointestinal Gastrointestinal: Denies abdominal pain Neurologic Neurologic: Reports as per HPI and Denies headache(s) Exam [facility] Head: normocephalic and atraumatic Mouth: moist mucous membranes Eyes EOM: EOM intact bilaterally Neck Neck: trachea midline and supple Resp Auscultation: clear to auscultation bilaterally, no rales, no rhonchi and no wheezes Cardio Rate: regular rate and not tachycardic Rhythm: regular rhythm GI Palpation: soft, not firm, no guarding, no masses, not rigid and nontender Skin General skin exam: no rashes or lesions noted Neuro General: patient alert, patient awake, patient oriented x3 and tone normal Extrem General: no edema Psych Thought Content: suicidality Course Vital Signs Vital signs: Vital Signs Temperature 36.5 C 11/09/23 12:02 Pulse 75 11/09/23 12:02 Respiratory Rate 20 11/09/23 12:02 Blood Pressure 134/81 11/09/23 12:02 Pulse Oximetry 93 11/09/23 12:02 Temperature 36.5 C 11/09/23 12:02 Temperature Source Tympanic 11/09/23 12:02 Pulse 75 11/09/23 12:02 Respiratory Rate 20 11/09/23 12:02 Respiratory Effort Normal 11/09/23 12:07 Respiratory Depth Normal 11/09/23 12:07 Respiratory Pattern Normal 11/09/23 12:07 Blood Pressure 134/81 11/09/23 12:02 Blood Pressure Position Sitting 11/09/23 12:02 Pulse Oximetry 93 11/09/23 12:02 Oxygen Delivery Method Room Air 11/09/23 12:02 Oxygen Flow Rate 0 11/09/23 12:02 Pain Level 0 11/09/23 12:02 Lab/Test Results Lab/Test Results: Laboratory Tests Range/Units 11/09/23 12:46 WBC (4.4-10.8) 10^3/uL 5.78 RBC (4.36-5.78) 10^6/uL 4.51 Hgb (13.5-17.5) g/dL 14.5 Hct (40.0-50.0) % 42.5 MCV (80-95) fL 94 MCH (27.0-33.0) pg 32.2 MCHC (32.0-36.0) % 34.1 RDW (11.8-14.1) % 12.3 Plt Count (130-400) 10^3/uL 191 MPV (8.0-11.0) fL 9.3 Immature Gran % % 0.7 Neutrophils % % 63.2 Lymphocytes % % 25.1 Monocytes % % 6.7 Eosinophils % % 3.1 Basophils % % 1.2 Nucleated RBC % (0.0-0.3) % 0.0 Absolute Neutrophils (1.2-6.7) 10^3/uL 3.65 Absolute Lymphocytes (1.2-3.4) 10^3/uL 1.45 Absolute Monocytes (0.1-0.8) 10^3/uL 0.39 Absolute Eosinophils (0.0-0.7) 10^3/uL 0.18 Absolute Basophils (0.0-0.2) 10^3/uL 0.07 Sodium (136-145) mmol/L 135 L Potassium (3.5-5.1) mmol/L 3.8 Chloride (98-107) mmol/L 98 Carbon Dioxide (21.0-32.0) mmol/L 24.9 Anion Gap (3-11) mmol/L 12.1 H BUN (7-18) mg/dL 15 Creatinine (0.70-1.30) mg/dL 0.9 Est GFR (CKD-EPI 2020) (mL/min/1.73m2) 91.88 Glucose (74-106) mg/dL 126 H Calcium (8.5-10.1) mg/dL 8.4 L Total Bilirubin (0.2-1.0) mg/dL 0.6 AST (15-37) U/L 18 ALT (16-63) U/L 23 Alkaline Phosphatase (46-116) U/L 97 Total Protein (6.4-8.2) g/dL 7.2 Albumin (3.4-5.0) g/dL 3.9 Ethyl Alcohol (<10) mg/dL 178.6 H Medical Decision Making 68-year-old male with history of seizures, here with altered mental status consistent with acute alcohol intoxication. Patient may have had seizure today. No signs of trauma on exam. He is hemodynamically stable. Patient has no complaints and requests discharge. Patient refusing further observation and treatment. I believe patient is stable to be discharged to [facility] or into the care of family. Lab Data Lab results reviewed: Yes I reviewed the patient's lab results. Labs: Laboratory Tests Range/Units 11/09/23 12:46 WBC (4.4-10.8) 10^3/uL 5.78 RBC (4.36-5.78) 10^6/uL 4.51 Hgb (13.5-17.5) g/dL 14.5 Hct (40.0-50.0) % 42.5 MCV (80-95) fL 94 MCH (27.0-33.0) pg 32.2 MCHC (32.0-36.0) % 34.1 RDW (11.8-14.1) % 12.3 Plt Count (130-400) 10^3/uL 191 MPV (8.0-11.0) fL 9.3 Immature Gran % % 0.7 Neutrophils % % 63.2 Lymphocytes % % 25.1 Monocytes % % 6.7 Eosinophils % % 3.1 Basophils % % 1.2 Nucleated RBC % (0.0-0.3) % 0.0 Absolute Neutrophils (1.2-6.7) 10^3/uL 3.65 Absolute Lymphocytes (1.2-3.4) 10^3/uL 1.45 Absolute Monocytes (0.1-0.8) 10^3/uL 0.39 Absolute Eosinophils (0.0-0.7) 10^3/uL 0.18 Absolute Basophils (0.0-0.2) 10^3/uL 0.07 Sodium (136-145) mmol/L 135 L Potassium (3.5-5.1) mmol/L 3.8 Chloride (98-107) mmol/L 98 Carbon Dioxide (21.0-32.0) mmol/L 24.9 Anion Gap (3-11) mmol/L 12.1 H BUN (7-18) mg/dL 15 Creatinine (0.70-1.30) mg/dL 0.9 Est GFR (CKD-EPI 2020) (mL/min/1.73m2) 91.88 Glucose (74-106) mg/dL 126 H Calcium (8.5-10.1) mg/dL 8.4 L Total Bilirubin (0.2-1.0) mg/dL 0.6 AST (15-37) U/L 18 ALT (16-63) U/L 23 Alkaline Phosphatase (46-116) U/L 97 Total Protein (6.4-8.2) g/dL 7.2 Albumin (3.4-5.0) g/dL 3.9 Ethyl Alcohol (<10) mg/dL 178.6 H Quality:SDOH Health Related Social Needs: No Data to Display PFSH All Active Problems (Updated 11/09/23 @ 14:16 by Heri Rivera MD) Alcohol intoxication (Acute) Hyperplastic colon polyp (Acute ~05/24/21) Kerns's esophagus (Acute ~05/2021) PTSD (post-traumatic stress disorder) (Acute) Hepatitis C (Acute) Elevated LFTs (Acute) Vertebral artery stenosis (Acute) <50% SANCHEZ (nonalcoholic steatohepatitis) (Acute) Spinal stenosis (Acute) Elevated LFTs (Acute) Chronic diarrhea (Acute) Syncope (Chronic) Melyssa (Acute) Medical History Back fracture Back pain Cancer determined by biopsy of tongue Chronic hepatitis C without mention of hepatic coma Diarrhea Elevated blood-pressure reading without diagnosis of hypertension IBS (irritable bowel syndrome) Leg cramps Overweight PTSD (post-traumatic stress disorder) Weight loss Surgical History History of colonoscopy with polypectomy (~05/24/21) History of esophagogastroduodenoscopy (EGD) (~05/24/21) History of surgery on extremity b/l forearm s/p trauma Social History Smoking/Tobacco Use Status: Current every day Tobacco Type: cigarettes Smoking risk assessment performed?: Yes Alcohol Intake: never Drug use: Never Substance use type: does not use Do you feel safe at home: Yes (building is unsafe) Do you feel safe in your relationship?: Yes PAWSS Have you Been Recently Intoxicated or Drunk Within the Last 30 days?: No Have you Ever Experienced Previous Episodes of Alcohol Withdrawal?: No Have you ever Experienced Withdrawal Seizures?: No Have you ever Experienced Delirium Tremens(DT)s?: No Have you ever undergone Alcohol Rehabilitation Treatment (i.e, inpt ot outpatient treatment programs)?: No Have you ever Experienced Blackouts?: No Have you ever Combined Alcohol with other Downers within the last 90 days?: No Have you ever Combined Alcohol with any other Substance of Abuse during the last 90 days?: No Positive Blood Alcohol level on Presentation? [PCS.BAL]: No Evidence of Increased Autonomic Activity (i.e. HR>120, tremor, sweating, agitation, nausea)?: No Result: 0
[2023-11-09 14:26] VITALS: BP 134/81; PULSE 75; RESP 20; TEMP 36.5; O2SAT 93
== END 2023-11-09 14:27 | disposition home or self-care (01) ==
PROVIDERS: Emergency Provider Student in an Organized Health Care Education/Training Program; PCP Nurse Practitioner Family
DX: F10.129 Alcohol abuse with intoxication, unspecified (principal); Y90.6 Blood alcohol level of 120-199 mg/100 ml; G40.909 Epilepsy, unspecified, not intractable, without status epilepticus; Z79.899 Other long term (current) drug therapy
CPT/HCPCS: 36415; 80053; 82962; 99283; 80320; 85025; 99284

== ENCOUNTER 2024-02-09 02:15 | Outpatient (CLI) | payer OTHER, SELFPAY ==
--- NOTE | 2024-02-09 11:23 | DI.US_ITS ---
Exam(s) US AAA SCREENING EXAM: US AAA SCREENING CLINICAL HISTORY: SCREENING FOR AAA, TOBACCO USER,Z72.0 COMPARISON: CT RENAL COLIC WO CONTRAST from 03/13/2008 US US ABDOMEN from 06/19/2021 CT scan 03/13/2008 FINDINGS: There is no evidence of abdominal aortic aneurysm. Maximum diameter of the abdominal aorta is 2.2 cm . Visualized common iliac arteries exhibit upper normal diameters. IMPRESSION: No evidence of abdominal aortic aneurysm. DATA REPOSITORY:
== END 2024-02-09 02:35 ==
LOC: DI 02:15
PROVIDERS: PCP Nurse Practitioner Family; Visit Provider Nurse Practitioner Family
DX: Z13.6 Encounter for screening for cardiovascular disorders (principal); Z72.0 Tobacco use
CPT/HCPCS: 76706